=== PATIENT | female | born 1970 | race Caucasian/White ===

== ENCOUNTER 2017-06-26 04:46 | Emergency (ER) | payer MEDICAID, SELFPAY ==
[2017-06-26 04:48] VITALS: BP 122/81; PULSE 88; RESP 20; TEMP 36.7; O2SAT 100; BMI 21.2
--- NOTE | 2017-06-26 04:48 | RAD_ITS ---
STUDY: X-RAY CHEST REASON FOR EXAM: Female, 47 years old. Chest pain TECHNIQUE: Single AP portable view of the chest. COMPARISON: None. FINDINGS: The lungs are clear and expanded. There is no demonstrated pleural abnormality. Normal size heart. Normal mediastinum and manuel. Normal visualized pulmonary arteries. Normal visualized aortic arch and descending thoracic aorta. Normal visualized thoracic spine. Normal visualized ribs, clavicles, and shoulders. There is no demonstrated abnormality of the visualized soft tissue structures of the upper abdomen. RAD/Chest 1 View (Portable) IMPRESSION: Normal x-ray examination of the chest. Electronically Signed: Farhan Acuña MD at 5:12 EDT Tel , Service support ,
--- NOTE | 2017-06-26 04:48 | EKG12_ITS ---
Test Reason : CP Blood Pressure : / mmHG Vent. Rate : 086 BPM Atrial Rate : 086 BPM P-R Int : 146 ms QRS Dur : 084 ms QT Int : 402 ms P-R-T Axes : 075 066 029 degrees QTc Int : 481 ms Normal sinus rhythm Prolonged QT Abnormal ECG Confirmed by BRANDY JOHNSON, LEONID ([id number]), supervising editor news reel [id number] [email or web address] ([id number]) on 06/29/2017 8:38:26 AM Referred By: GALDINO Confirmed By:LEONID NAVA MD
--- NOTE | 2017-06-26 05:04 | ED.DCSUM_ITS ---
- ER Visit Summary Date of Service: 06/26/17 Chief Complaint: Chest pain History of Present Illness: The patient is a 47 F who woke up with chest pain approximate 2 hours ago. She describes a heaviness, pressure in the midsternal area. It radiated to her arm, left jaw and back. Nothing made it better or worse. She did have associated shortness of breath. EMS was called and they gave her aspirin. In route her pain is improving. This same thing happened 5 months ago. She went to [facility] and had a full workup and they determined that the diagnosis was anxiety. Patient denies feeling anxious at this time. She is a smoker but she has no other cardiovascular risk factors. She has no PE or DVT risk factors. Denies any leg swelling. Physical Examination: Vital signs reviewed. HEENT exam unremarkable. Heart is regular rate and rhythm without murmurs. Lungs are clear to auscultation. Abdomen is soft and nontender. Extremities reveal no edema. Peripheral pulses are equal. Skin exam normal. Neurologic exam normal. Test Results: EKG is normal sinus rhythm with a rate of 86. No ST changes. Laboratory studies are normal except for a white blood cell count of 14.8. Chest x-ray unremarkable Emergency Department Course and Treatment: Patient received aspirin by EMS. She was then given morphine. Her labs and chest x-ray and EKG are all normal. I do not feel that this is cardiac in nature. Patient has a ALICE score of 0 and a heart score less than 3. She is low risk. I have very low suspicion for pulmonary embolism. I feel this is likely musculoskeletal. She will be discharged home with an NSAID. She will need to follow-up with her PCP Treatment Plan: [] Disposition: Discharge Impression: Chest pain, noncardiac This note was generated with PowerCard dictation software. It may contain incorrect words, spelling, and punctuation that were not noted in review of the chart prior to signing ED Disposition - Plan for ED Patient: Chief Complaint: Chest Pain Referrals: Care Physician,No Primary [Primary Care Provider] -
[2017-06-26 05:05] LABS: Absolute Lymphocyte Count 2.82 X10^3/ul (0.83-4.51); Absolute Neutrophil Count 10.9 X10^3/uL (2.0-7.7); Basophil# 0.03 X10^3/uL; Basophil% 0.2 % (0-1); Eosinophil# 0.07 X10^3/uL; Eosinophils% 0.5 % (0-5); Hematocrit 44.4 % (37-47); Lymphocyte # 2.82 X10^3/ul (4.0); Mean Corp Hgb Conc 33.8 g/gl (32-36); Mean Corpuscular Hgb 34.2 pg (27.0-32.0); Mean Corpuscular Volume 101.4 fL (81-99); Mean Platelet Vol. 9.9 fl (6.2-12.0); Monocyte% 6.7 % (0-10); Neutrophil # 10.88 X10^3/uL (2.7-7.7); Neutrophil % 73.4 % (47-70); Platelet Count 167 K/mm3 (150-450); RBC Distribution Width SD 51.9 fl (35.1-43.9); Red Blood Count 4.38 M/mm3 (4.2-5.4); White Blood Count 14.8 K/mm3 (4.4-11.0)
[2017-06-26 05:08] LABS: POSITIVE COUNT NO; POSITIVE DIFFERENTIAL NO; POSITIVE MORPHOLOGY NO
[2017-06-26] MEDS: Morphine 4 MG/ML Syringe IV (05:38)
[2017-06-26 05:43] VITALS: BP 116/74; PULSE 88; RESP 16; O2SAT 96
[2017-06-26 05:46] LABS: Anion Gap 10 (5-15); BUN 10 mg/dL (7-18); BUN/Creat Ratio 14.5 RATIO (10-20); Calcium,Total 8.7 mg/dL (8.5-10.1); Chloride 102 mmol/L (98-107); Creatinine, Serum 0.69 mg/dL (0.55-1.02); EST Glomerular Filtration Rate 96 mL/min (>60); Est Glom Filt Rate - Afr Amer 116 mL/min (>60); Glucose 106 mg/dL (74-106); Potassium 3.5 mmol/L (3.5-5.1); Sodium Level 138 mmol/L (136-145)
--- NOTE | 2017-06-26 06:12 | ED.DEP ---
ED Disposition - Plan for ED Patient: Disposition: Home or Assisted Living Chief Complaint: Chest Pain Instructions: ED Chest Pain NonCardiac Prescriptions: Naproxen [Naprosyn] 500 mg PO BID PRN #20 tab Referrals: Care Physician,No Primary [Primary Care Provider] -
[2017-06-26 06:17] VITALS: BP 123/79; PULSE 99; RESP 16; O2SAT 99
== END 2017-06-26 06:27 | disposition home or self-care (01) ==
PROVIDERS: Emergency Provider Emergency Medicine
DX: R07.89 Other chest pain (principal); R06.00 Dyspnea, unspecified; F17.200 Nicotine dependence, unspecified, uncomplicated
CPT/HCPCS: 71045; 80048; 84484; 85025; 93005; 96374; 99285; A4216

== ENCOUNTER 2019-12-24 16:07 | Inpatient (IN) | payer MEDICAID, SELFPAY ==
[2019-12-24] VITALS (11 sets, daily range): BP systolic 110–139; BP diastolic 71–90; PULSE 102–116; RESP 16–26; TEMP 36.2–37; O2SAT 94–99; BMI 21.1; BMI 21.9
[2019-12-24 16:21] LABS: Bedside Glucose 52 mg/dL (70-110)
--- NOTE | 2019-12-24 16:22 | EKG12_ITS ---
Test Reason : WEAKNESS Blood Pressure : / mmHG Vent. Rate : 110 BPM Atrial Rate : 110 BPM P-R Int : 138 ms QRS Dur : 082 ms QT Int : 344 ms P-R-T Axes : 071 057 072 degrees QTc Int : 465 ms Sinus tachycardia Possible Left atrial enlargement Borderline ECG Confirmed by BRANDY JOHNSON, LEONID ([id number]), manager editorial CHARLY JIMÉNEZ ([id number]) on 12/27/2019 10:07:25 AM Referred By: Marely Avitia Confirmed By:LEONID NAVA MD
--- NOTE | 2019-12-24 16:23 | CT_ITS ---
STUDY: CT ABDOMEN AND PELVIS WITHOUT CONTRAST REASON FOR EXAM: Female, 49 years old. Abdominal pain. RADIATION DOSAGE (If Supplied By Facility): CTDIvol = ( 6.04 ) mGy, DLP = ( 314.11 ) mGycm TECHNIQUE: Transaxial images were obtained from the dome of the diaphragm to the symphysis pubis without oral contrast, and without intravenous contrast. Sagittal and coronal images were reconstructed. Individualized dose optimization techniques were used for this CT. COMPARISON: None. FINDINGS: Evaluation of the abdominal viscera is limited in the absence of intravenous contrast. There are small bilateral pleural effusions with overlying atelectasis. There is a 6 mm nodule in the right middle lobe. The visualized portions of the heart and pericardium are within normal limits. There are coronary artery calcifications noted. There are no calcified gallstones present. The gallbladder is distended. The liver is low in density, consistent with fatty infiltration. The spleen is normal in size. The pancreas demonstrates an unremarkable unenhanced appearance. The adrenal glands are within normal limits. There are no renal or ureteral stones. There is no hydronephrosis. There is a DURÁN catheter in the urinary bladder. Normal visualized stomach. There is no bowel obstruction. There is bowel wall thickening in the ascending colon which is consistent with colitis. The appendix is not visualized, but there are no findings to suggest acute appendicitis. The aorta is normal in caliber. Atherosclerotic calcifications are noted in the aorta and its branches. There is a large amount of free fluid. There is no free air, fluid collection or lymphadenopathy. There are no destructive osseous lesions. CT/Abdomen/Pelvis without Cont IMPRESSION: Small bilateral pleural effusions with overlying atelectasis. 6 mm nodule in the right middle lobe. Bowel wall thickening in the ascending colon which is consistent with colitis. Diffuse fatty infiltration of the liver. Large amount of ascites. Normal kidneys. No hydronephrosis. Distended gallbladder. No calcified gallstones. Atherosclerosis and coronary artery disease. Electronically Signed: Bennett Everett, at 17:28 EDT Tel , Service support ,
--- NOTE | 2019-12-24 16:25 | ED.VIS.GEN ---
History of Present Illness Chief Complaint: Hypoglycemia Informant: Patient, Family Onset: Weeks Maximum Severity: Moderate Narrative: The patient presents with generalized weakness cough trouble walking around her home. Per the family she has a diagnosis of pneumonia 3 weeks ago she was seen via virtual visit started on medication believed to be antibiotics she did not improve she continue has cough poor p.o. intake and severe fatigue to where she could not walk around her home today and they called paramedics paramedics found her blood sugar of 50 she has no known history of diabetes, She is an extremely poor historian she is not sure of her past medical history, she believes she may have had an VA in the distant past, may have had A. fib in the past may have hypertension she is not sure of her med list, she is unable to eat or drink she has no known obvious exposures to coronavirus Past Medical History - Allergies and Home Meds Allergies/Adverse Reactions: Allergies No Known Allergies Allergy (Verified 08/23/18 10:19) Primary Care Physician: Zabrina Rdz TANNING WHEEL OPERATOR, TANNING WHEEL OPERATOR-C [Primary Care Provider] - Past Medical History: - - Last history is unclear due to the fact she cannot remember and might be as above Smoking Status: Current every day smoker Review of Systems General: Denies: Chills, Fever, Sweats Eyes: Denies: Visual changes - bilaterally, Diplopia ENT: Denies: Rhinorrhea, Sore throat Cardiovascular: Denies: Chest pain, Palpitations Respiratory: Reports: Dyspnea, Cough. Denies: Dyspnea on exertion Gastrointestinal: Reports: Abdominal pain. Denies: Nausea, Vomiting, Diarrhea, Melena, Hematochezia Genitourinary: Denies: Dysuria, Hematuria, Frequency Musculoskeletal: Denies: Back pain, Extremity Pain Skin: Denies: Rash, Wounds Neurological: Denies: Headache, Weakness, Numbness Physical Exam Vital Signs/Narrative: Vital Signs Temp Pulse Resp BP Pulse Ox 12/24/19 16:10 98.1 F 114 H 18 139/90 H 99 General: Well nourished, Well developed, No Acute Distress Head: Normocephalic, Atraumatic Eyes: Perrl, EOMI ENT: Moist mucous membranes, No rhinorrhea Neck: Supple, Nontender Cardiovascular: Regular rate, Regular rhythm, No murmurs Respiratory: No distress, Chest nontender, Rhonchi, Diminished, Decreased Air Movement Abdomen: Soft, Nontender, Nondistended, Normal bowel sounds Back: Nontender, Normal Inspection Extremities: Nontender, No edema Skin: Normal color, No rash Neurological: Alert, Oriented x3, Cranial nerves II-XII grossly intact, Normal Strength, Normal Sensation, - - He is awake and alert her cranial nerves extremity exam normal moving all 4 extremities NIH 0 she is complains of extreme whole body weakness nothing focal Psychological: Normal affect, Normal Mood Diagnostic/Tx/Re-eval - Medical Decision Making All the above ED screening evaluation to include COVID screen ED Disposition - Plan for ED Patient: Referrals: Zabrina Rdz NP, TANNING WHEEL OPERATOR-C [Primary Care Provider] -
[2019-12-24 16:38] LABS: Mucous, Urine 0 SEEN /hpf (<or=2+); Red Blood Cells-Urine 0 SEEN /hpf (0-5); Squamous Epithelial Cells - UA 0 SEEN /hpf (5-10)
[2019-12-24 16:39] LABS: Color, Urine Amber (Yellow); Glucose, Dipstick Normal (Normal); Ketone-Dipstick 50 mg/dl (Negative); Leukocyte Esterase-Dipstick 25 /ul (Negative); Nitrite-Dipstick Positive (Negative); Occult Blood-Urine 10 /ul (Negative); Protein-Dipstick 15 mg/dl (Negative); Specific Gravity, Urine 1.025 (1.002-1.030); Urine Clarity Sl. Cloudy (Clear); Urine Urobilinogen 12 mg/dl (Normal)
[2019-12-24] MEDS: Aspirin 81 MG TAB.CHEW 324 MG PO (16:43)
[2019-12-24 16:51] LABS: Urine Bilirubin Dipstick 3 mg/dL (Negative)
[2019-12-24 16:53] LABS: Bacteria 4+ /hpf (None Seen); White Blood Cells 0-5 SEEN /hpf (0-5)
--- NOTE | 2019-12-24 16:54 | RAD_ITS ---
STUDY: X-RAY CHEST REASON FOR EXAM: Female, 49 years old. Chest pain TECHNIQUE: Frontal view of the chest COMPARISON: 06/26/2017 FINDINGS: The lungs are clear. There are no pleural effusions. There is no pneumothorax. The heart is normal in size. The visualized osseous structures are within normal limits. RAD/Chest 1 View (Portable) IMPRESSION: No acute thoracic pathology. Electronically Signed: Bennett Everett, at 17:31 EDT Tel , Service support ,
[2019-12-24 16:55] LABS: Absolute Lymphocyte Count 1.72 X10^3/uL (0.83-4.51); Absolute Neutrophil Count 9.5 X10^3/uL (2.0-7.7); Basophil# 0.03 X10^3/uL; Basophil% 0.3 % (0-1); Eosinophil# 0.01 X10^3/uL; Eosinophils% 0.1 % (0-5); Hematocrit 32.7 % (37-47); Hemoglobin 12.1 g/dL (12.0-15.0); Lymphocyte # 1.72 X10^3/ul (4.0); Lymphocyte % 14.4 % (19-41); Mean Corpuscular Hgb 37.3 pg (27.0-32.0); Mean Corpuscular Volume 100.9 fL (81-99); Mean Platelet Vol. 10.9 fl (6.2-12.0); Monocyte# 0.59 X10^3/uL; Monocyte% 4.9 % (0-10); NRBC Flagged by Analyzer 0 % (0-5); Neutrophil # 9.46 X10^3/uL (2.7-7.7); Neutrophil % 79.3 % (47-70); Platelet Count 128 K/mm3 (150-450); RBC Distribution Width CV 14.9 % (11.6-14.6); RBC Distribution Width SD 55.7 fl (35.1-43.9); Red Blood Count 3.24 M/mm3 (4.2-5.4); White Blood Count 11.9 K/mm3 (4.4-11.0)
[2019-12-24 16:58] LABS: International Normalized Ratio 1.1; Prothrombin Time (Protime)PT. 13.4 SECONDS (11.7-14.9)
[2019-12-24 17:16] LABS: Anion Gap 14 (5-15); BUN 2 mg/dL (7-18); BUN/Creat Ratio 7.9 RATIO (10-20); Chloride 83 mmol/L (98-107); Creatinine, Serum 0.25 mg/dL (0.55-1.02); EST Glomerular Filtration Rate 304 mL/min (>60); Est Glom Filt Rate - Afr Amer 367 mL/min (>60); Estimated Creatinine Clearance 232.48 ml/min; Glucose 46 mg/dL (74-106); Sodium Level 118 mmol/L (136-145)
[2019-12-24] MEDS: Dextrose 50%-Water 25 GM/50 ML DISP.SYRIN IV ×2 (17:29→19:30)
[2019-12-24 18:49] LABS: AST(SGOT) 196 U/L (15-37); Alanine Aminotransfer ALT/SGPT 57 U/L (13-56); Albumin, Serum 1.9 g/dL (3.2-5.0); Alkaline Phosphatase 496 U/L (45-117); Anion Gap 13 (5-15); BUN 2 mg/dL (7-18); BUN/Creat Ratio 8.3 RATIO (10-20); Bilirubin, Direct 2.13 mg/dL (0.00-0.30); Calcium,Total 7.6 mg/dL (8.5-10.1); Chloride 85 mmol/L (98-107); Creatinine, Serum 0.24 mg/dL (0.55-1.02); EST Glomerular Filtration Rate 323 mL/min (>60); Est Glom Filt Rate - Afr Amer 390 mL/min (>60); Estimated Creatinine Clearance 242.16 ml/min; Globulin 4.3 g/dL (2.2-4.2); Glucose 94 mg/dL (74-106); Lipase 321 U/L (73-393); Protein, Total 6.2 g/dL (6.4-8.2); Sodium Level 118 mmol/L (136-145)
--- NOTE | 2019-12-24 19:19 | HP.PCM_ITS ---
Problem List (1) Debility Status: Acute (2) Hyponatremia Status: Acute (3) Elevated liver enzymes Status: Acute (4) Coronary artery disease involving [place] heart Status: Chronic Qualifiers: Coronary Disease-Associated Artery/Lesion type: [place] artery Associated angina: without angina Qualified Code(s): I25.10 - Atherosclerotic heart disease of [place] coronary artery without angina pectoris (5) Afib Status: Chronic Qualifiers: Atrial fibrillation type: paroxysmal Qualified Code(s): I48.0 - Paroxysmal atrial fibrillation (6) HLD (hyperlipidemia) Status: Chronic Qualifiers: Hyperlipidemia type: unspecified Qualified Code(s): E78.5 - Hyperlipidemia, unspecified History of Present Illness Date of Admission: 12/24/19 Chief Complaint: Generalised weakness - months Patient is a poor historian, some history was obtained by her cousin who was at the bedside: The patient is a 49 year old F with past medical history of CAD status post stent, paroxysmal atrial fibrillation, hyperlipidemia who has been unwell for months. Patient stated that she has been unwell since January. She does not go to the hospital. She primarily gets her care [facility] from [facility]. She lives with her cousin in [place]. She recently got out of an a busive relationship and has been living with her cousin. Patient has been progressively feeling weak, unable to walk. She has refused to come to the hospital. Her sister called the ambulance. Patient was found by the EMS crew to have pedal edema, abdominal distention mildly jaundiced. Her blood sugar was 48. She admits to not eating well in the last few days. She also has been drinking and has cut down to 1 beer a day. She was given a tablet of glucose on which she sucked on. Vitals in the ED showed temperature of 98.1F, heart rate 114, blood pressure 139/90, respiratory rate 18, SPO2 is 99% on room air. WBC 11.9, Hb 12.1, Plt 128, neutrophilia. INR is 1.1, sodium is 118, potassium 4.0, chloride 85, carbonate 20, BUN is 2, creatinine 0.24, Kos is 94, lactic acid is 2.0, calcium 7.6, bili 1.9, total bilirubin 3.4, direct Kiara 2.1, AST 196, ALT 57, ALP 496. UA is slightly cloudy, nitrite positive, leukocyte esterase 25, bilirubin 3, WBC count 025, 4+ bacteria. Patient denies any dysuria or lower abdominal discomfort or urgency. He admits to no urine output for 3 days. Chavira catheter passed in the ED showed concentrated urine. Past Medical History Past Medical History (Chronic Problems): Chronic Problems (Last Updated 08/23/18 @ 10:23 by Gwen Parson) Coronary artery disease involving [place] heart (Chronic) Afib (Chronic) HLD (hyperlipidemia) (Chronic) Medical History: Medical History (Last Updated 08/23/18 @ 10:23 by Gwen Parson) Coronary artery disease involving [place] heart (Chronic) I25.10 Afib (Chronic) I48.91 HLD (hyperlipidemia) (Chronic) E78.5 Allergies No Known Allergies Allergy (Verified 08/23/18 10:19) Home Medications: Ambulatory Orders Medication Instructions Recorded Cinnamon Bark [Cinnamon] 500 mg PO DAILY 06/26/17 Naproxen [Naprosyn] 500 mg PO BID PRN #20 tab 06/26/17 aspirin 81 mg tablet,delayed 81 mg PO DAILY 08/23/18 release atorvastatin 40 mg tablet 40 mg PO QHS 08/23/18 cholecalciferol (vitamin D3) 25 1,000 unit PO DAILY 08/23/18 mcg (1,000 unit) capsule lisinopril 5 mg tablet 5 mg PO DAILY 08/23/18 nitroglycerin 0.4 mg sublingual 0.4 mg SUBLINGUAL Q5-15M PRN 08/23/18 tablet ticagrelor 90 mg tablet 90 mg PO BID 08/23/18 Surgical History: Surgical History (Last Updated 08/23/18 @ 10:25 by Gwen Parson) H/O dilation and curettage Z98.890 H/O: hysterectomy Z90.710 History of left heart catheterization Z98.890 10/20/2017 Previous section Z98.891 Surgical History: hysterectomy, - - Status post cardiac catheterization, section, history of D&C Psychiatric History: No pertinent psych hx MICROELECTRONICS TECHNICIAN History: No pertinent MICROELECTRONICS TECHNICIAN history Lives: With Family Smoking Status: Current every day smoker Tobacco Use: Cigarettes Alcohol: Heavy Drugs: None - *Family History Maternal Family History: Family History (Last Updated 08/23/18 @ 10:26 by Gwen Parson) Father CAD (coronary artery disease) Mother CAD (coronary artery disease) Myocardial infarction Sister CAD (coronary artery disease) History Items: Heart Disease, Hypertension Paternal Family History: Family History (Last Updated 08/23/18 @ 10:26 by Gwen Parson) Father CAD (coronary artery disease) Mother CAD (coronary artery disease) Myocardial infarction Sister CAD (coronary artery disease) History Items: Heart Disease Review of Systems Constitutional: Reports: Anorexia, Chills, Malaise, Weakness, Fatigue. Denies: Fever, Night Sweats, Weight Change Eyes: Denies: Blurred vision, Cataracts, Conjunctivae Inflammation, Pain, Vision Change HEENT: Denies: Difficulty Hearing, Difficulty Swallowing, Head Aches, Hearing Changes, Sinus Congestion, Sinus Drainage, Sore Throat Cardiovascular: Denies: Chest Pain, Claudication, Orthopnea, Palpitations, Paroxysmal Noc. Dyspnea Respiratory: Reports: Cough, Shortness of Breath, Shortness of breath at rest, Shortness of breath upon exertion. Denies: Hemoptysis, Sputum production Gastrointestinal: Denies: Abdominal Pain, Hematemesis, Hematochezia, Nausea, Vomiting Genitourinary: Reports: - - Poor urine output. Denies: Dysuria, Frequency, Incontinence Musculoskeletal: Denies: Joint Pain, Joint stiffness, Joint swelling, Joint Tenderness Skin: Denies: Rash, Wounds Neurological: Denies: Numbness, Tingling, Focal weakness Psychiatric: Denies: Anxiety, Depression, Homicidal Ideations, Suicidal Ideations Hematologic/ Lymphatic: Denies: Easy Bruising, Easy Bleeding VTE Information - Inpt Only VTE Present on Admission: No VTE Pharm Prophylaxis ordered?: Yes Patient Problems: Active and Suspected Problems (Last Updated 08/23/18 @ 10:23 by Gwen Parson) Debility (Acute) Hyponatremia (Acute) Elevated liver enzymes (Acute) - Physical Exam Vitals/I&O's: Vital Signs Temp Pulse Resp BP Pulse Ox 97.8 F 102 H 16 121/83 H 99 12/24/19 18:32 12/24/19 18:32 12/24/19 18:32 12/24/19 18:32 12/24/19 18:32 Oxygen Delivery Method Room Air Weight: 55.9 kg Body Mass Index (BMI) 21.1 Finger Stick Blood Glucose 119 Intake and Output for Last 24 Hours 12/22/19 12/23/19 12/24/19 23:59 23:59 23:59 Intake Total 500 / 500 Balance 500 / 500 General: Alert, Oriented x3, Cooperative, - - Cachectic, chronically unwell, appears slightly lethargic, unkempt HEENT: Atraumatic, PERRLA, EOMI, Normocephalic Oral: Dry Mucosa Neck: Supple Lungs: Diminished Cardiovascular: Regular rate, Regular Rhythm, Normal S1 - At the lung bases, Normal S2, No murmurs, Tachycardic Abdomen: Bowel Sounds Present, Soft, Non Tender, Distended Extremities: Edema - Bilateral pedal edema +2 Skin: - - Scattered petechiae, chronic flaking of the skin to lower extremities Musculoskeletal: No Tenderness to Palpation of Joints or Extremities Neurological: Cranial nerves II-XII grossly intact, Neuro grossly intact Psych/Mental Status: Normal Affect, Appropriate Laboratory Results 12/24/19 16:15: WBC 11.9 H, RBC 3.24 L, Hgb 12.1, Hct 32.7 L, MCV 100.9 H, MCH 37.3 H, MCHC 37.0 H, RDW Std Deviation 55.7 H, RDW Coeff of Vickie 14.9 H, Plt Count 128 L, MPV 10.9, Immature Gran % (Auto) 1.000 H, Neut % (Auto) 79.3 H, Lymph % (Auto) 14.4 L, [place] % (Auto) 4.9, Eos % (Auto) 0.1, Baso % (Auto) 0.3, Absolute Neuts (auto) 9.5 H, Absolute Lymphs (auto) 1.72, Nucleated RBC % 0 12/24/19 16:15: PT 13.4, INR 1.1 12/24/19 16:15: Sodium 118 L*, Potassium 4.0, Chloride 83 L, Carbon Dioxide 21.0 , Anion Gap 14, BUN 2 L, Creatinine 0.25 L, Estim Creat Clear Calc 232.48, Est GFR (MDRD) Af Amer 367, Est GFR (MDRD) Non-Af 304, BUN/Creatinine Ratio 7.9 L, Glucose 46 L, Calcium 8.0 L, Troponin I < 0.015 12/24/19 16:15: Lactic Acid 2.0 12/24/19 16:15: B-Natriuretic Peptide Pending 12/24/19 16:17: POC Glucose 52 L 12/24/19 16:25: Urine Color Elsa, Urine Clarity Sl. Cloudy, Urine pH 6.0, Ur Specific Show Low 1.025, Urine Protein 15 H, Urine Glucose (UA) Normal, Urine Ketones 50 H, Urine Occult Blood 10 H, Urine Nitrite Positive H, Urine Bilirubin 3 H, Urine Urobilinogen 12 H, Ur Leukocyte Esterase 25 H, Urine RBC 0 SEEN, Urine WBC 0-5 SEEN, Ur Squamous Epith Cells 0 SEEN, Urine Bacteria 4+, Urine Mucus 0 SEEN 12/24/19 16:45: COVID-19 (NENA) Pending 12/24/19 18:02: Sodium 118 L*, Potassium 4.0, Chloride 85 L, Carbon Dioxide 20.0 L, Anion Gap 13, BUN 2 L, Creatinine 0.24 L, Estim Creat Clear Calc 242.16, Est GFR (MDRD) Af Amer 390, Est GFR (MDRD) Non-Af 323, BUN/Creatinine Ratio 8.3 L, Glucose 94, Calcium 7.6 L, Total Bilirubin 3.40 H, Direct Bilirubin 2.13 H, AST 196 H, ALT 57 H, Alkaline Phosphatase 496 H, Total Protein 6.2 L, Albumin 1.9 L, Globulin 4.3 H, Lipase 321 Current Medications Sodium Chloride () 1,000 mls @ 0 mls/hr IV .Q0M [facility] Assessment/Plan All Active Problems (Last Updated 08/23/18 @ 10:23 by Gwen Parson) Debility (Acute) Hyponatremia (Acute) Elevated liver enzymes (Acute) 1. Acute severe hyponatremia, likely related to SIADH versus beer potomania vs hypervolemic hyponatremia Patient with history of alcohol use disorder, very poor p.o. intake Admitted with sodium of 118, appears fluid overloaded. BNpep is pending Will give a trial of Lasix 40 mg IV twice daily, fluid restriction, TSH, serum osmolarity urine sodium, urine creatinine, urine osmolality Repeat BMP in 4 hours, nephrology consult 2. Hypoglycemia, recurrent secondary to poor p.o. intake Patient admitting blood sugar was 52. Given an amp of D50 and continued on D10/NS at 125mls/hr We will continue same, monitor glucose checks every 6h Discontinue D10 if patient's blood glucose improved. 3. Elevated liver function, elevated total bilirubin, direct bilirubin as well as AST, ALT and ALP No previous values to compare Acute related to alcoholic liver disease; history of chronic alcohol use CT scan of the abdomen and pelvis shows fatty liver We will get ultrasound of the abdomen, acute hepatitis panel, acetaminophen, salicylate levels Repeat blood work in a.m. 3. Ascites, probable new onset, patient is not aware of any history of ascites Likely related to severe hypoalbuminemia with albumin of 1.9 vs chronic liver disease versus malignancy Will request for ultrasound-guided paracentesis with diagnostic labs, serum LDH in a.m. 4. Ascending colon thickening concerning for possible colitis. Patient without diarrhea. Will check CEA Will start patient on empiric antibiotics?Cipro and Flagyl Patient may need general surgery evaluation for possible underlying malignancy 5. Malnutrition, severe protein calorie, secondary to poor p.o. intake rn pacu consulted 6. Thrombocytopenia, with scattered petechia, unclear etiology Would hold off on using heparin products, blood work in a.m. 7. Asymptomatic bacteriuria, would monitor 8. Chronic alcohol use disorder, will monitor for acute alcohol withdrawal Would hold off on starting on Ativan taper 9. CAD status post stent, continue on aspirin, Brilinta, statin 10. CODE STATUS?full code I explained in details the various types of CODE STATUS-full code, DNR CCA, DNR CC. Patient stated very clearly that she wants everything done to keep her alive. She chose full code. Time spent discussing CODE STATUS 17 minutes Inpatient E&M: 72538 Init Hosp L3 Procedures: 22523 Advncd Care Plan 30 Min
[2019-12-24 20:41] LABS: Bedside Glucose 47 mg/dL (70-110)
[2019-12-24 20:45] LABS: Reflex Lactate? Y
--- NOTE | 2019-12-24 20:45 | US_ITS ---
PROCEDURE: ULTRASOUND GUIDED PARACENTESIS CLINICAL HISTORY: Female, 49 years old. ASCITES CONSENT: The risks, benefits and alternatives to the procedure were explained to the patient, and the patient agreed to the procedure and signed the consent. SEDATION: Local Anesthesia STERILE BARRIER TECHNIQUE: The following sterile barrier precautions were used during the procedure: hand hygiene; use of 2% chlorhexidine aseptic; use of a cap, mask, sterile gown, sterile gloves, sterile full body drape, and a large sterile sheet. PROCEDURE/TECHNIQUE: The risks, benefits, and alternatives to the procedure were explained to patient, and the patient agreed to the procedure and signed a consent form for the procedure. TECHNIQUE: Under the ultrasound guidance using sterile technique and after infiltration of the skin and subcutaneous soft tissues with 10 mL of lidocaine 1% a 5 [place] drainage catheter is introduced in the lower part of the abdomen. 2220 mL of fluid were removed sample sent to lab for evaluation. The patient tolerated the procedure there was no immediate complication. FINDINGS: FLUID PRE-PROCEDURE There is posterior enhancement. The findings appear anechoic. There is no loculation. FLUID POST-PROCEDURE Amount of fluid drained: 2220 ml. US/Paracentesis with US IMPRESSION: Successful ultrasound-guided paracentesis. Electronically Signed: Farhan Acuña, at 13:28 EDT Tel , Service support ,
--- NOTE | 2019-12-24 20:45 | ECHOCS_ITS ---
Reason For Study: Dyspnea/SOB Procedure This was a 2D Doppler, Color Flow transthoracic echocardiogram. Technically difficult study due to patient having an elevated HR and said she was not willing to lay on her left side. Exam performed portable in patient room. Left Ventricle Normal LV size. Left ventricular systolic function is normal. The estimated ejection fraction is 70 %. Stage 1 diastolic dysfunction. No regional wall motion abnormalities noted. Right Ventricle Normal RV size. Normal systolic function. Atria Normal left atrium. Normal right atrium. Mitral Valve Normal mitral valve. Tricuspid Valve The tricuspid valve is not well visualized. Aortic Valve The aortic valve is not well visualized. Pulmonic Valve The pulmonic valve is not well visualized. Great Vessels Normal aortic root. The pulmonary artery is normal size. Normal inferior vena cava. Pericardium/Pleural No pericardial effusion. Medication Diluted definity 3ml given slow IV push to enhance endocardial definition. MMode/2D Measurements & Calculations LVIDd: 3.7 cm IVSd: 0.72 cm LVIDs: 2.9 cm LVPWd: 0.79 cm FS: 22.8 % Time Measurements MV dec time: 0.24 sec Doppler Measurements & Calculations MV E max torey: 53.5 cm/sec Lat Peak E' Torey: 11.1 cm/sec Med Peak E' Torey: 7.2 cm/sec MV A max torey: 102.8 cm/sec E/E' lat: 4.8 E/E' med: 7.4 MV E/A: 0.52 Ao V2 max: 142.3 cm/sec LV V1 max: 137.7 cm/sec PA V2 max: 154.1 cm/sec Ao max P.1 mmHg LV V1 max P.6 mmHg Interpretation Summary Normal LV size. Left ventricular systolic function is normal. The estimated ejection fraction is 70 %. Stage 1 diastolic dysfunction. Contrast injection was performed. Ordering Physician: Marely Avitia Referring Physician: Marely Avitia Performed By: Mejia Hagan RCS
--- NOTE | 2019-12-24 20:45 | US_ITS ---
STUDY: ABDOMINAL ULTRASOUND - RIGHT UPPER QUADRANT REASON FOR VISIT: Female, 49 years old ELEVATED LIVER ENZYMES -- F/U CT DONE YESTERDAY -- ASCITES SURVEY TECHNIQUE: Ultrasound evaluation of the right upper quadrant was performed with real-time and static levi-scale imaging. TECHNICAL QUALITY: Adequate. COMPARISON: None. FINDINGS: Liver: The liver measures 16.8 cm. There is increased echogenicity consistent with fatty infiltration. The bile ducts are within normal limits. There is hepatic color flow. The direction of portal flow is hepatopetal. There is no demonstrated mass lesion. There is small amount of free fluid in the right upper quadrant consistent with ascites. Gallbladder: Normal distended gallbladder. The gallbladder wall measures 3.5 mm. There is a negative sonographic Headley''s sign. There is no pericholecystic fluid. There is biliary sludge dependent within the gallbladder. Common Bile Duct (C.B.D.): The common bile duct measures 4 mm. Pancreas: Normal size of the head, body and tail of the pancreas. There is normal echogenicity of the pancreas. There is no demonstrated pancreatic mass or cyst. Right Kidney: Normal size of the right kidney. The right kidney measures 11.8 x 4.6 x 4.1 cm. Normal renal cortex. The right cortex measures 1.7 cm. There is no demonstrated renal mass or cyst. There is mild hydronephrosis of the right kidney. US/Liver IMPRESSION: Fatty infiltration of the liver. There is biliary sludge dependent within the gallbladder. Small ascites. Electronically Signed: Farhan Acuña, at 9:08 EDT Tel , Service support ,
[2019-12-24 21:37] LABS: Urine Sodium < 5 mmol/L (Not Establ.)
[2019-12-24 21:51] LABS: Amphetamine Urine VISTA NEGATIVE (<1000 ng/mL); Barbiturate Urine VISTA NEGATIVE (< 200 ng/mL); Benzodiazepine Urine VISTA NEGATIVE (< 200 ng/mL); Cocaine Urine VISTA NEGATIVE (< 300 ng/mL); Ecstacy Urine VISTA NEGATIVE (< 500 ng/mL); Methadone Urine VISTA NEGATIVE (< 300 ng/mL); PCP Urine VISTA NEGATIVE (< 25 ng/mL); THC Urine VISTA NEGATIVE (< 50 ng/mL); Vista UDS pH Range 6
[2019-12-24 22:04] LABS: Phosphorus 1.8 mg/dL (2.5-4.9); Thyroid Stim Hormone (TSH) 6.56 uIU/mL (0.358-3.74)
[2019-12-24] MEDS: Ipratropium/Albuterol Sulfate 3 ML AMPUL.NEB INHALATION (22:05)
[2019-12-24 22:06] LABS: Osmolality, Urine 509 mOsm/KG
[2019-12-24 22:07] LABS: Osmolality, Serum 276 mOsm/KG (275-295)
[2019-12-24 22:11] LABS: Lactic Acid 1.9 mmol/L (0.4-1.9)
[2019-12-24 22:12] LABS: Acetaminophen (Tylenol) Level < 2.0 ug/mL (10.0-30.0); Salicylate < 1.7 mg/dL (2.8-20.0)
[2019-12-24] MEDS: 0.9% Saline Lock 10 ML Syringe IV (23:09)
[2019-12-24] MEDS: metroNIDAZOLE 500 MG/100 ML BAG 100 MG IV (23:12)
[2019-12-25] VITALS (17 sets, daily range): BP systolic 103–123; BP diastolic 65–73; PULSE 103–126; RESP 12–28; TEMP 36.8–37.3; O2SAT 94–100; BMI 20.2
--- NOTE | 2019-12-25 | IMM_PTH ---
PATIENT: ROSEANNA CARDOZO LOC: PCU U#:[id number] AGE/SX: 49/F ROOM: [facility] RE12/24/[address]: Dr. Claire Anthony MD : 1970 BED: 1 DIS: 12/28/2019 SPEC #: [id number] RECD: 12/26/19 13:53 STATUS: SOUT REQ #: [id number] YESI: 12/25/19 00:[address]: Claire Anthony DEPT: IMMUNOHISTOCHEMISTRY RECD BY: Elza Barlow ENTERED: 12/26/19 13:54 SP TYPE: IMMUNO OTHR DR: MD Dr. Kimberly Pope MD Lindsey Lorson, BUSINESS EDUCATION TEACHER-C Tissues: PARACENTESIS FLUID Procedures: Calretinin (initial) CK5-6 (add) CK7 (add) MACRO (add) TTF1 (add) P40 (add) PHYSICIAN & [address] [address] SPECIMEN INFORMATION: Tissue Source: Paracentesis fluid Clinical Info: Ascites Specimen Number: [id number] CPT code: 48327, 32019 x5 METHODOLOGY: Deparaffinized sections of prefer/formalin-fixed tissue or PAP/DQ stained slides are incubated with monoclonal/polyclonal antibodies/oligonucleotide probes. Localization is made via biotin free immunoperoxidase method. Appropriate controls are performed and reacted as expected. Results on target cell population are indicated in the following table: RESULTS: ANTIBODY / CLONE RESULT CALRET (polyclonal) positive TTF-1 (8G7G3/1) negative Macro (HAM-56) positive CK5-6 (D5 & 1684) positive P40 (BC28) negative CK7 (OV-TL12/30) positive These tests were developed and their performance characteristics determined by [facility]. They may not have been cleared or approved by the U.[place]. Food and Drug Administration. The FDA has determined that such clearance or approval is not necessary. The above immunohistochemical/dualISH markers are ordered and reviewed by the Pathologist. INTERPRETATION: Paracentesis fluid: No evidence of malignancy. AM:dayday 12/27/19
--- NOTE | 2019-12-25 | FLU_PTH ---
PATIENT: ROSEANNA CARDOZO LOC: [facility] U#:[id number] AGE/SX: 49/F ROOM: [facility] RE12/24/[address]: Dr. Claire Anthony MD : 1970 BED: 1 DIS: 12/28/2019 SPEC #: [id number] RECD: 12/25/19 13:34 STATUS: ROCIO REQ #: [id number] YESI: 12/25/19 00:[address]: Claire Anthony DEPT: CYTOLOGY RECD BY: Jose Valentin ENTERED: 12/25/19 13:35 SP TYPE: Fluid OTHR DR: MD Dr. Kimberly Pope MD No Primary Care Phys Tissues: PARACENTESIS FLUID Procedures: Special Stain Group II Surgery Specimen Level IV Cytospin Fluid HEADER OPERATION: Ultrasound-guided left paracentesis PRE-OP DIAGNOSIS: Ascites TISSUE SUBMITTED: Paracentesis fluid for cytology DIAGNOSIS CYTOLOGY Paracentesis fluid for cytology (cytospin and cell block): Negative for malignant cells. See comment. AM:dayday 12/26/19 COMMENT Immunohistochemistry ([id number]) supports the above diagnosis. CYTOLOGY STUDY Slides are reviewed. CYTOLOGY GROSS Received is 110 ml of hazy yellow fluid labeled with the patient's name and and designated per the requisition as paracentesis. Submitted for cytology preparation including cell block. / dayday 12/25/19 TC:4 CPT: 00976
[2019-12-25] MEDS: Ciprofloxacin 400 MG/200 ML BAG 200 MG IV ×3 (00:32→22:41)
[2019-12-25 00:55] LABS: Bedside Glucose 104 mg/dL (70-110)
[2019-12-25 03:40] LABS: Absolute Lymphocyte Count 0.86 X10^3/uL (0.83-4.51); Absolute Neutrophil Count 8.6 X10^3/uL (2.0-7.7); Basophil# 0.01 X10^3/uL; Basophil% 0.1 % (0-1); Eosinophil# 0.01 X10^3/uL; Eosinophils% 0.1 % (0-5); Hematocrit 26.9 % (37-47); Hemoglobin 9.9 g/dL (12.0-15.0); Lymphocyte # 0.86 X10^3/ul (4.0); Lymphocyte % 8.6 % (19-41); Mean Corp Hgb Conc 36.8 g/dL (32-36); Mean Corpuscular Hgb 37.6 pg (27.0-32.0); Mean Corpuscular Volume 102.3 fL (81-99); Mean Platelet Vol. 10.6 fl (6.2-12.0); Monocyte# 0.47 X10^3/uL; Monocyte% 4.7 % (0-10); NRBC Flagged by Analyzer 0 % (0-5); Neutrophil # 8.59 X10^3/uL (2.7-7.7); Neutrophil % 85.5 % (47-70); Platelet Count 103 K/mm3 (150-450); RBC Distribution Width CV 15.1 % (11.6-14.6); RBC Distribution Width SD 56.2 fl (35.1-43.9); Red Blood Count 2.63 M/mm3 (4.2-5.4)
[2019-12-25 04:29] LABS: ALB/GLOB Ratio 0.5 RATIO (0.9-2.4); AST(SGOT) 166 U/L (15-37); Alanine Aminotransfer ALT/SGPT 50 U/L (13-56); Albumin, Serum 1.8 g/dL (3.2-5.0); Alkaline Phosphatase 406 U/L (45-117); Anion Gap 11 (5-15); BUN 2 mg/dL (7-18); BUN/Creat Ratio 8.2 RATIO (10-20); Calcium,Total 7.1 mg/dL (8.5-10.1); Chloride 85 mmol/L (98-107); Creatinine, Serum 0.24 mg/dL (0.55-1.02); EST Glomerular Filtration Rate 316 mL/min (>60); Est Glom Filt Rate - Afr Amer 383 mL/min (>60); Estimated Creatinine Clearance 242.16 ml/min; Globulin 3.4 g/dL (2.2-4.2); Glucose 97 mg/dL (74-106); LDH 377 U/L (84-246); Magnesium 1.6 mg/dL (1.6-2.6); Phosphorus 2.4 mg/dL (2.5-4.9); Potassium 3.2 mmol/L (3.5-5.1); Protein, Total 5.2 g/dL (6.4-8.2); Sodium Level 117 mmol/L (136-145)
[2019-12-25] MEDS: metroNIDAZOLE 500 MG/100 ML BAG 100 MG IV ×3 (05:24→21:36)
--- NOTE | 2019-12-25 05:59 | PCM.PN.BLA ---
Progress Note Patient with decreasing hyponatremia. Patient was on D10 water in normal saline going at 75 mL's per hour because of concomitant hypoglycemia. Stop D10 normal saline. Continue sodium phosphate for hypophosphatemia. Change Accu-Cheks for every 6 hours to every 4 hours. Patient is scheduled to have ultrasound of liver; and then ultrasound-guided paracentesis. Patient is n.p.o. for above tests. Of note he was hypoglycemic on presentation before being kept n.p.o.. Nursing to check with radiology when patient will have ultrasound of his liver so that we can appropriately feed patient. STROKE Vital Signs/Narrative: Vital Signs Temp Pulse Resp BP Pulse Ox 12/25/19 05:08 98.5 F 126 H 28 H 119/71 97 12/25/19 03:00 119 H
[2019-12-25 06:21] LABS: Bedside Glucose 102 mg/dL (70-110)
[2019-12-25] MEDS: Furosemide 40 MG/4 ML Vial IV ×2 (06:52→21:38)
[2019-12-25] MEDS: 0.9% Saline Lock 10 ML Syringe IV ×2 (06:52→21:38)
[2019-12-25 08:15] LABS: T4 Free Direct 0.77 ng/dL (0.76-1.46)
[2019-12-25] MEDS: Aspirin E.C. 81 MG Tablet PO (09:37)
[2019-12-25] MEDS: Folic Acid 1 MG Tablet PO (09:38)
[2019-12-25] MEDS: Thiamine Hydrochloride 100 MG Tablet PO (09:38)
[2019-12-25] MEDS: Metoprolol(XL)Succ 25 MG Tablet PO (09:39)
--- NOTE | 2019-12-25 09:44 | NURSING ---
pt refused nicotine patch after patch was already removed from packaging. Wasted patch in black bin in med room.
[2019-12-25 09:58] LABS: Osmolality, Serum 248 mOsm/KG (275-295)
[2019-12-25 10:04] LABS: Urine Sodium 45 mmol/L (Not Establ.)
[2019-12-25 10:10] LABS: Osmolality, Urine 280 mOsm/KG
[2019-12-25] MEDS: Ipratropium/Albuterol Sulfate 3 ML AMPUL.NEB INHALATION ×2 (11:14→18:39)
--- NOTE | 2019-12-25 11:42 | PCM.NTREPORT ---
Nutrition Therapy Report - History Nutrition Services has been consulted to:: Manage nutrient details of diet order Current diet / nutrition support order:: Sodium-Restricted/1500 ml Fluid Restriction - Anthropometric Measurements Height:: 5 ft 4 in Weight:: 53.4 kg Body Mass Index (BMI):: 20.2 - Relevant Labs Relevant Labs:: WBC 11.9 K/mm3 (4.4-11.0) H 12/24/19 16:15 RBC 2.63 M/mm3 (4.2-5.4) L 12/25/19 03:23 Hgb 9.9 g/dL (12.0-15.0) L 12/25/19 03:23 Hct 26.9 % (37-47) L 12/25/19 03:23 MCV 102.3 fL (81-99) H 12/25/19 03:23 MCH 37.6 pg (27.0-32.0) H 12/25/19 03:23 MCHC 36.8 g/dL (32-36) H 12/25/19 03:23 RDW Std Deviation 56.2 fl (35.1-43.9) H 12/25/19 03:23 RDW Coeff of Vickie 15.1 % (11.6-14.6) H 12/25/19 03:23 Plt Count 103 K/mm3 (150-450) L 12/25/19 03:23 Immature Gran % (Auto) 1.000 % (0.0-0.9) H 12/25/19 03:23 Neut % (Auto) 85.5 % (47-70) H 12/25/19 03:23 Lymph % (Auto) 8.6 % (19-41) L 12/25/19 03:23 Absolute Neuts (auto) 8.6 X10^3/uL (2.0-7.7) H 12/25/19 03:23 Sodium 117 mmol/L (136-145) L* 12/25/19 03:23 Potassium 3.2 mmol/L (3.5-5.1) L 12/25/19 03:23 Chloride 85 mmol/L (98-107) L 12/25/19 03:23 Carbon Dioxide 20.0 mmol/L (21.0-32.0) L 12/24/19 18:02 BUN 2 mg/dL (7-18) L 12/25/19 03:23 Creatinine 0.24 mg/dL (0.55-1.02) L 12/25/19 03:23 BUN/Creatinine Ratio 8.2 RATIO (10-20) L 12/25/19 03:23 Glucose 46 mg/dL (74-106) L 12/24/19 16:15 Serum Osmolality 248 mOsm/KG (275-295) L 12/25/19 08:48 Calcium 7.1 mg/dL (8.5-10.1) L 12/25/19 03:23 Phosphorus 2.4 mg/dL (2.5-4.9) L 12/25/19 03:23 Total Bilirubin 2.90 mg/dL (0.20-1.00) H 12/25/19 03:23 Direct Bilirubin 2.13 mg/dL (0.00-0.30) H 12/24/19 18:02 AST 166 U/L (15-37) H 12/25/19 03:23 ALT 57 U/L (13-56) H 12/24/19 18:02 Alkaline Phosphatase 406 U/L (45-117) H 12/25/19 03:23 Lactate Dehydrogenase 377 U/L (84-246) H 12/25/19 03:23 Total Protein 5.2 g/dL (6.4-8.2) L 12/25/19 03:23 Albumin 1.8 g/dL (3.2-5.0) L 12/25/19 03:23 Globulin 4.3 g/dL (2.2-4.2) H 12/24/19 18:02 Albumin/Globulin Ratio 0.5 RATIO (0.9-2.4) L 12/25/19 03:23 TSH 6.56 uIU/mL (0.358-3.74) H 12/24/19 21:25 - Assessment Food / Nutrition-Related History:: Pt with BLLE 1+ pitting edema and ascites. Pt reports decreased nik/intake over the past 1 month but, difficult to calculate wt loss due to ascites and BLLE 1+ pitting edema. Suspect pt with wt loss due to obvious muscle/fat depletion in face, temples, clavicle and upper body but, fluid wt is clearly masking wt loss. Pt very uncomfortable and reports my weight changes when asked about UBW. Reports UBW~100 lbs. Despite unclear wt hx per pt report, pt with signs/symptoms of pro/tree malnutrition per ongoing poor intake and +NFPA indicated moderate to severe pro/fat wasting. Plans for paracentesis and liver US today. - Nutrition Diagnosis Problem / Etiology / Signs & Symptoms (PES):: Severe pro/tree malnutrition of acute disease related to ongoing suboptimal oral intake; increased nutrient needs and suspected wt loss likely masked by fluid wt as evidenced by poor PO x past 1 month; +NFPA with signs of muscle/fat wasting of face, temples, clavicle and upper body. Evidence of Malnutrition Exists:: Yes Severe PCM:: Acute Illness - Nutrition Intervention Nutrition Prescription:: Estimated Nutrition Needs~8112-4096 kcal & ~65-75 gm protein for repletion. - Food / Nutrient Delivery Interventions Summary of nutrition intervention:: Will adjust ONS w/ meals to include magic cup BID and ensure cleat 120 ml TID w/ meals in addition to 120 ml ensure enlive 4 x daily w/ medpass as ordered. Nutrition support ordered as / adjusted to:: Not at this time but, may need to consider TF support for pro/tree repletion if PO remains poor and wt declines. Nutrition education provided?: Yes - MNT Monitoring Further MNT monitoring and evaluation required?: Yes MNT Follow-up in:: 3-5 days
[2019-12-25 11:51] LABS: Bedside Glucose 183 mg/dL (70-110)
--- NOTE | 2019-12-25 12:47 | PCM.CONS.R ---
Problem List (1) Hyponatremia Status: Acute Consultation - Renal 12/25/19 PCP/ Referring MD: Requesting physician: [] Primary care physician: No Primary Care Phys Reason for Consultation:: hyponatremia - History of Present Illness History of Present Illness: The patient is a 49 year old F Who presented to the hospital with complaints of generalized weakness, abdominal distention. Apparently she was living with her cousin for the last few weeks. History of heavy alcohol use. Presented with weakness, abdominal distention, lower extremity edema. Found to have severe hyponatremia with sodium values at 117. Has new diagnosis of arthritis, fatty liver likely all alcohol related. Currently denies any complaints. A Chavira catheter was placed in the ER and she is making good amount of urine. She has been placed on IV Lasix for hypervolemic hyponatremia. Currently does not offer any complaints. - Allergies Allergies: Allergies No Known Allergies Allergy (Verified 08/23/18 10:19) - Current Medications Current Medications: Current Medications Albuterol/Ipratropium (Duoneb) 3 ml INHALATION Q4HWA.RT [facility] Last Admin: 12/25/19 11:14 Dose: 3 ml Documented by: Aspirin (Ecotrin) 81 mg PO DAILYCM [facility] Last Admin: 12/25/19 09:37 Dose: 81 mg Documented by: Bisacodyl (Dulcolax) 10 mg RECTAL DAILY PRN PRN Reason: Constipation Dextrose (D50w Syringe) 0 gm IV X1 PRN; Protocol PRN Reason: Hypoglycemia Dicyclomine HCl (Bentyl) 20 mg PO Q6H PRN PRN PRN Reason: abdominal discomfort Folic Acid (Folic Acid) 1 mg PO DAILY@0800 [facility] Last Admin: 12/25/19 09:38 Dose: 1 mg Documented by: Furosemide (Lasix) 40 mg IV BID [facility] Last Admin: 12/25/19 06:52 Dose: 40 mg Documented by: Gabapentin (Neurontin) 300 mg PO Q8H PRN PRN PRN Reason: moderate to severe anxiety Glucagon () 1 mg IM .X1 PRN PRN Reason: Hypoglycemia Hydroxyzine Pamoate (Vistaril Pamoate Capsule) 50 mg PO Q4H PRN PRN PRN Reason: mild anxiety Sodium Chloride () 1,000 mls @ 0 mls/hr IV .Q0M [facility] Ciprofloxacin (Cipro) 400 mg in 200 mls @ 200 mls/hr IV Q12 [facility] Last Infusion: 12/25/19 11:17 Dose: Infused Documented by: Metronidazole (Flagyl) 500 mg in 100 mls @ 100 mls/hr IV Q8 [facility] Last Infusion: 12/25/19 06:24 Dose: Infused Documented by: Sodium Chloride () 250 mls @ 15 mls/hr IV .[id number] PRN PRN Reason: Saline Flush Last Infusion: 12/25/19 06:24 Dose: 15 mls/hr Documented by: Sodium Chloride () 250 mls @ 15 mls/hr IV .[id number] PRN PRN Reason: Additional IVPB Infusion Loperamide HCl (Imodium) 2 mg PO Q4H PRN PRN PRN Reason: LOOSE STOOLS Metoprolol Succinate (Toprol Xl (Beta Tomy)) 25 mg PO DAILY [facility] Last Admin: 12/25/19 09:39 Dose: 25 mg Documented by: Nicotine (Nicoderm Cq (Pbkc)) 21 mg TRANSDERM. DAILY [facility] Last Admin: 12/25/19 09:44 Dose: Not Given Documented by: Nitroglycerin (Nitrostat) 0.4 mg SUBLINGUAL Q5M PRN PRN Reason: CARDIAC/CHEST PAIN Nutritional Formula (Lactose Free) (Ensure Enlive) 120 ml PO 4X/DAY [facility] Last Admin: 12/25/19 09:37 Dose: 120 ml Documented by: Ondansetron HCl (Zofran) 4 mg IV Q8H PRN PRN PRN Reason: NAUSEA/VOMITING Sodium Chloride () 10 - 40 ml IV UD PRN PRN Reason: SALINE FLUSH Last Admin: 12/25/19 06:52 Dose: 10 ml Documented by: Thiamine HCl (Vitamin B1) 100 mg PO DAILYCM [facility] Last Admin: 12/25/19 09:38 Dose: 100 mg Documented by: Trazodone HCl (Desyrel) 100 mg PO QHS PRN PRN Reason: INSOMNIA - Past Medical History Past Medical History (Chronic Problems): Chronic Problems (Last Updated 08/23/18 @ 10:23 by Gwen Parson) Coronary artery disease involving [place] heart (Chronic) Afib (Chronic) HLD (hyperlipidemia) (Chronic) - Past Surgical History Surgical History: hysterectomy, - - Status post cardiac catheterization, section, history of D&C - Social History Smoking Status: Current every day smoker Alcohol: Heavy Drugs: None - Family History Maternal Family History: Family History (Last Updated 08/23/18 @ 10:26 by Gwen Parson) Father CAD (coronary artery disease) Mother CAD (coronary artery disease) Myocardial infarction Sister CAD (coronary artery disease) History Items: Heart Disease, Hypertension Paternal Family History: Family History (Last Updated 08/23/18 @ 10:26 by Gwen Parson) Father CAD (coronary artery disease) Mother CAD (coronary artery disease) Myocardial infarction Sister CAD (coronary artery disease) History Items: Heart Disease Review of Systems Constitutional: Reports: Anorexia, Malaise, Weakness Respiratory: Reports: Shortness of breath at rest Gastrointestinal: Reports: Abdominal Pain Skin: Reports: Jaundice Patient Problems: Active and Suspected Problems (Last Updated 08/23/18 @ 10:23 by Gwen Parson) Debility (Acute) Hyponatremia (Acute) Elevated liver enzymes (Acute) - Physical Exam Vitals/I&O's: Vital Signs Temp Pulse Resp BP Pulse Ox 98.6 F 118 H 20 H 115/71 94 12/25/19 06:45 12/25/19 11:14 12/25/19 11:14 12/25/19 06:45 12/25/19 11:14 Oxygen Delivery Method Room Air Weight: 53.4 kg Body Mass Index (BMI) 20.2 Finger Stick Blood Glucose 47 Intake and Output for Last 24 Hours 12/23/19 12/24/19 12/25/19 23:59 23:59 23:59 Intake Total 750.25 / 750.25 3333 / Output Total 400 / 400 400 / 400 Balance 350.25 / 350.25 1591.3333 / 1591.3333 General: Alert, Oriented x3, Cooperative HEENT: Atraumatic, PERRLA, EOMI, Normocephalic Neck: Supple, No JVD, Negative Carotid Bruits Lungs: Clear to auscultation, Normal air movement Cardiovascular: Regular rate, No murmurs Abdomen: Distended Extremities: Capillary Refill Less than 3 Seconds, Edema Skin: No rashes, No breakdown Musculoskeletal: No Tenderness to Palpation of Joints or Extremities Neurological: Cranial nerves II-XII grossly intact Psych/Mental Status: Normal Affect, Appropriate Microbiology Past 72 Hours 12/24/19 16:25 Urine, Catheterized Urine Culture - Preliminary Presumptive E. coli Laboratory Results 12/24/19 16:15: WBC 11.9 H, RBC 3.24 L, Hgb 12.1, Hct 32.7 L, MCV 100.9 H, MCH 37.3 H, MCHC 37.0 H, RDW Std Deviation 55.7 H, RDW Coeff of Vickie 14.9 H, Plt Count 128 L, MPV 10.9, Immature Gran % (Auto) 1.000 H, Neut % (Auto) 79.3 H, Lymph % (Auto) 14.4 L, Mcduffie % (Auto) 4.9, Eos % (Auto) 0.1, Baso % (Auto) 0.3, Absolute Neuts (auto) 9.5 H, Absolute Lymphs (auto) 1.72, Nucleated RBC % 0 12/24/19 16:15: PT 13.4, INR 1.1 12/24/19 16:15: Sodium 118 L*, Potassium 4.0, Chloride 83 L, Carbon Dioxide 21.0, Anion Gap 14, BUN 2 L, Creatinine 0.25 L, Estim Creat Clear Calc 232.48, Est GFR (MDRD) Af Amer 367, Est GFR (MDRD) Non-Af 304, BUN/Creatinine Ratio 7.9 L, Glucose 46 L, Calcium 8.0 L, Troponin I < 0.015 12/24/19 16:15: Lactic Acid 2.0 12/24/19 16:15: B-Natriuretic Peptide Pending 12/24/19 16:17: POC Glucose 52 L 12/24/19 16:25: Urine Color Elsa, Urine Clarity Sl. Cloudy, Urine pH 6.0, Ur Specific [place] 1.025, Urine Protein 15 H, Urine Glucose (UA) Normal, Urine Ketones 50 H, Urine Occult Blood 10 H, Urine Nitrite Positive H, Urine Bilirubin 3 H, Urine Urobilinogen 12 H, Ur Leukocyte Esterase 25 H, Urine RBC 0 SEEN, Urine WBC 0-5 SEEN, Ur Squamous Epith Cells 0 SEEN, Urine Bacteria 4+, Urine Mucus 0 SEEN 12/24/19 16:25: Urine Opiates Screen NEGATIVE, Urine Methadone Screen NEGATIVE, Ur Barbiturates Screen NEGATIVE, Ur Phencyclidine Scrn NEGATIVE, Ur Amphetamines Screen NEGATIVE, U Methamphetamin-MDMA NEGATIVE, U Benzodiazepines Scrn NEGATIVE, Urine Cocaine Screen NEGATIVE, U Cannabinoids Screen NEGATIVE, Ur Drug Screen Comment 12/24/19 16:25: Urine Osmolality 509 12/24/19 16:25: Urine Creatinine 91.40 12/24/19 16:25: Ur Random Sodium < 5 12/24/19 16:45: COVID-19 ([facility]NA) Negative 12/24/19 18:02: Sodium 118 L*, Potassium 4.0, Chloride 85 L, Carbon Dioxide 20.0 L, Anion Gap 13, BUN 2 L, Creatinine 0.24 L, Estim Creat Clear Calc 242.16, Est GFR (MDRD) Af Amer 390, Est GFR (MDRD) Non-Af 323, BUN/Creatinine Ratio 8.3 L, Glucose 94, Calcium 7.6 L, Total Bilirubin 3.40 H, Direct Bilirubin 2.13 H, AST 196 H, ALT 57 H, Alkaline Phosphatase 496 H, Total Protein 6.2 L, Albumin 1.9 L, Globulin 4.3 H, Lipase 321 12/24/19 19:22: POC Glucose 47 L 12/24/19 21:25: Lactic Acid 1.9 12/24/19 21:25: Phosphorus 1.8 L, Magnesium 2.0, Troponin I 0.016, TSH 6.56 H 12/24/19 21:25: Serum Osmolality 276, Salicylates < 1.7 L, Acetaminophen < 2.0 L 12/24/19 21:25: Carcinoembryonic Ag Pending, Hepatitis A IgM Ab Pending, Hep Bs Antigen Pending, Hep B Core IgM Ab Pending, Hepatitis C Ab (EIA) Pending 12/24/19 23:19: POC Glucose 104 12/25/19 00:20: Troponin I < 0.015 12/25/19 03:23: WBC 10.0, RBC 2.63 L, Hgb 9.9 L, Hct 26.9 L, MCV 102.3 H, MCH 37.6 H, MCHC 36.8 H, RDW Std Deviation 56.2 H, RDW Coeff of Vickie 15.1 H, Plt Count 103 L, MPV 10.6, Immature Gran % (Auto) 1.000 H, Neut % (Auto) 85.5 H, Lymph % (Auto) 8.6 L, Mcduffie % (Auto) 4.7, Eos % (Auto) 0.1, Baso % (Auto) 0.1, Absolute Neuts (auto) 8.6 H, Absolute Lymphs (auto) 0.86, Nucleated RBC % 0 12/25/19 03:23: Sodium 117 L*, Potassium 3.2 L, Chloride 85 L, Carbon Dioxide 21.0, Anion Gap 11, BUN 2 L, Creatinine 0.24 L, Estim Creat Clear Calc 242.16, Est GFR (MDRD) Af Amer 383, Est GFR (MDRD) Non-Af 316, BUN/Creatinine Ratio 8.2 L, Glucose 97, Calcium 7.1 L, Phosphorus 2.4 L, Magnesium 1.6, Total Bilirubin 2.90 H, AST 166 H, ALT 50, Alkaline Phosphatase 406 H, Lactate Dehydrogenase 377 H, Total Protein 5.2 L, Albumin 1.8 L, Globulin 3.4, Albumin/Globulin Ratio 0.5 L 12/25/19 03:23: Troponin I < 0.015 12/25/19 03:23: Free T4 0.77 12/25/19 05:31: POC Glucose 102 12/25/19 08:48: Serum Osmolality 248 L 12/25/19 09:40: Urine Osmolality 280, Ur Random Sodium 45 12/25/19 11:45: POC Glucose 183 H 12/25/19 11:55: Sodium Pending, Potassium Pending, Chloride Pending, Carbon Dioxide Pending, Anion Gap Pending, BUN Pending, Creatinine Pending, Est GFR (MDRD) Af Amer Pending, Est GFR (MDRD) Non-Af Pending, BUN/Creatinine Ratio Pending, Glucose Pending, Calcium Pending Current Medications Albuterol/Ipratropium (Duoneb) 3 ml INHALATION Q4HWA.RT [facility] Last Admin: 12/25/19 11:14 Dose: 3 ml Documented by: Aspirin (Ecotrin) 81 mg PO DAILYCM [facility] Last Admin: 12/25/19 09:37 Dose: 81 mg Documented by: Bisacodyl (Dulcolax) 10 mg RECTAL DAILY PRN PRN Reason: Constipation Dextrose (D50w Syringe) 0 gm IV X1 PRN; Protocol PRN Reason: Hypoglycemia Dicyclomine HCl (Bentyl) 20 mg PO Q6H PRN PRN PRN Reason: abdominal discomfort Folic Acid (Folic Acid) 1 mg PO DAILY@0800 [facility] Last Admin: 12/25/19 09:38 Dose: 1 mg Documented by: Furosemide (Lasix) 40 mg IV BID [facility] Last Admin: 12/25/19 06:52 Dose: 40 mg Documented by: Gabapentin (Neurontin) 300 mg PO Q8H PRN PRN PRN Reason: moderate to severe anxiety Glucagon () 1 mg IM .X1 PRN PRN Reason: Hypoglycemia Hydroxyzine Pamoate (Vistaril Pamoate Capsule) 50 mg PO Q4H PRN PRN PRN Reason: mild anxiety Sodium Chloride () 1,000 mls @ 0 mls/hr IV .Q0M [facility] Ciprofloxacin (Cipro) 400 mg in 200 mls @ 200 mls/hr IV Q12 [facility] Last Infusion: 12/25/19 11:17 Dose: Infused Documented by: Metronidazole (Flagyl) 500 mg in 100 mls @ 100 mls/hr IV Q8 [facility] Last Infusion: 12/25/19 06:24 Dose: Infused Documented by: Sodium Chloride () 250 mls @ 15 mls/hr IV .[id number] PRN PRN Reason: Saline Flush Last Infusion: 12/25/19 06:24 Dose: 15 mls/hr Documented by: Sodium Chloride () 250 mls @ 15 mls/hr IV .[id number] PRN PRN Reason: Additional IVPB Infusion Loperamide HCl (Imodium) 2 mg PO Q4H PRN PRN PRN Reason: LOOSE STOOLS Metoprolol Succinate (Toprol Xl (Beta Tomy)) 25 mg PO DAILY [facility] Last Admin: 12/25/19 09:39 Dose: 25 mg Documented by: Nicotine (Nicoderm Cq (Pbkc)) 21 mg TRANSDERM. DAILY [facility] Last Admin: 12/25/19 09:44 Dose: Not Given Documented by: Nitroglycerin (Nitrostat) 0.4 mg SUBLINGUAL Q5M PRN PRN Reason: CARDIAC/CHEST PAIN Nutritional Formula (Lactose Free) (Ensure Enlive) 120 ml PO 4X/DAY [facility] Last Admin: 12/25/19 09:37 Dose: 120 ml Documented by: Ondansetron HCl (Zofran) 4 mg IV Q8H PRN PRN PRN Reason: NAUSEA/VOMITING Sodium Chloride () 10 - 40 ml IV UD PRN PRN Reason: SALINE FLUSH Last Admin: 12/25/19 06:52 Dose: 10 ml Documented by: Thiamine HCl (Vitamin B1) 100 mg PO DAILYCM [facility] Last Admin: 12/25/19 09:38 Dose: 100 mg Documented by: Trazodone HCl (Desyrel) 100 mg PO QHS PRN PRN Reason: INSOMNIA Assessment/Plan All Active Problems (Last Updated 08/23/18 @ 10:23 by Gwen Parson) Debility (Acute) Hyponatremia (Acute) Elevated liver enzymes (Acute) hyponatremia. Clinically hypervolemic. Has a new diagnosis of fatty liver likely related to alcohol. Apparently he has poor appetite for the last few weeks. Looks pretty emaciated. Urine sodium is low, urine osmolality is high. All the labs are consistent with hypervolemic hyponatremia from liver disease. She is responding well to IV Lasix. Has about 600 cc of urine output since 8 AM. We'll repeat a BMP this afternoon. If the sodium is still low, will add salt tablets. will follow thank you
[2019-12-25 13:12] LABS: Anion Gap 13 (5-15); BUN 2 mg/dL (7-18); BUN/Creat Ratio 3.4 RATIO (10-20); Calcium,Total 7.9 mg/dL (8.5-10.1); Chloride 86 mmol/L (98-107); EST Glomerular Filtration Rate 113 mL/min (>60); Est Glom Filt Rate - Afr Amer 137 mL/min (>60); Estimated Creatinine Clearance 94.56 ml/min; Glucose 154 mg/dL (74-106); Potassium 2.7 mmol/L (3.5-5.1); Sodium Level 120 mmol/L (136-145)
[2019-12-25 13:37] LABS: Body Fluid Mononuclear WBC # 0.023 10^3/uL; Body Fluid Mononuclear WBC % 71.9 %; Body Fluid Polynuclear WBC # 0.009 10^3/uL; Body Fluid Polynuclear WBC % 28.1 %; Body Fluid Total Cells Counted 0.046 10^3/ul; White Blood Count/Body Fluid 0.032 10^3/uL
--- NOTE | 2019-12-25 13:48 | PN_ITS ---
Patient Problems: Active and Suspected Problems (Last Updated 08/23/18 @ 10:23 by Gwen Parson) Debility (Acute) Hyponatremia (Acute) Elevated liver enzymes (Acute) Subjective: Patient seen and examined. She was admitted for debility and generalized weakness. She stated she had been unwell for several months, since January 2019 but had not been going to the hospital. She had been getting progressively weak and was found to have pedal edema and abdominal distention as well as jaundice with blood sugar of 48. She had admitted to not eating well at home. He was also found to be severely hyponatremic and is been managed for acute hyponatremia as well as recurrent hypoglycemia, ascites and transaminitis as well as thrombocytopenia. Patient seen and examined this morning. Still complains of feeling very weak and tired. She denied any cough, chest pain, nausea vomiting or diarrhea. She did admit to abdominal distention. Review of systems otherwise negative. Patient noted to be tachycardic with heart rate being in the 04/06/2017 range. Sodium this morning was 118. Hemoglobin is dropped to 9.9 from 12.1 on admiss ion and WBC is 10. BNP is still pending. Vitals/I&O's: Vital Signs Temp Pulse Resp BP Pulse Ox 99.1 F 116 H 12 107/68 98 12/25/19 13:11 12/25/19 13:11 12/25/19 13:11 12/25/19 13:11 12/25/19 13:11 Oxygen Delivery Method [3] Room Air Oxygen Delivery Method [2] Room Air Oxygen Delivery Method [1 ( Room Air Initial Baseline)] Oxygen Delivery Method Room Air Weight: 117 lb 11.629 oz Body Mass Index (BMI) 20.2 Finger Stick Blood Glucose 47 Intake and Output for Last 24 Hours 12/23/19 12/24/19 12/25/19 23:59 23:59 23:59 Intake Total 750.25 / 750.25 2351.3333 / 2351.3333 Output Total 400 / 400 3870 / 3870 Balance 350.25 / 350.25 -1518.6667 / -1518.6667 General: Alert, Oriented x3, Cooperative, Lethargic, - - frail, looks much older than stated age HEENT: Atraumatic, PERRLA, EOMI, Normocephalic, - - jaundiced sclera Oral: Dry Mucosa Neck: Supple, No JVD, Negative Carotid Bruits Lungs: Clear to auscultation, Normal air movement, No rhonchi, No wheeze Cardiovascular: Regular Rhythm, Normal S1, Normal S2, No murmurs, Tachycardic Abdomen: Bowel Sounds Present, Soft, Non Tender, Distended - positive fluid thrill, indicative of ascites Extremities: No cyanosis Skin: - - Has petechia on upper extremities. Musculoskeletal: No Tenderness to Palpation of Joints or Extremities Lymphatic: No Cervical, Supraclavicular, or Inguinal Adenopathy Neurological: Cranial nerves II-XII grossly intact, Neuro grossly intact, Motor Exam 5/5 strength throughout Psych/Mental Status: Normal Affect, Appropriate, Alert and oriented to time, place, person, mood and affect Microbiology Past 72 Hours 12/24/19 16:25 Urine, Catheterized Urine Culture - Preliminary Presumptive E. coli Laboratory Results 12/24/19 16:15: WBC 11.9 H, RBC 3.24 L, Hgb 12.1, Hct 32.7 L, MCV 100.9 H, MCH 37.3 H, MCHC 37.0 H, RDW Std Deviation 55.7 H, RDW Coeff of Vickie 14.9 H, Plt Count 128 L, MPV 10.9, Immature Gran % (Auto) 1.000 H, Neut % (Auto) 79.3 H, Lymph % (Auto) 14.4 L, Pendleton % (Auto) 4.9, Eos % (Auto) 0.1, Baso % (Auto) 0.3, Absolute Neuts (auto) 9.5 H, Absolute Lymphs (auto) 1.72, Nucleated RBC % 0 12/24/19 16:15: PT 13.4, INR 1.1 12/24/19 16:15: Sodium 118 L*, Potassium 4.0, Chloride 83 L, Carbon Dioxide 21.0, Anion Gap 14, BUN 2 L, Creatinine 0.25 L, Estim Creat Clear Calc 232.48, Est GFR (MDRD) Af Amer 367, Est GFR (MDRD) Non-Af 304, BUN/Creatinine Ratio 7.9 L, Glucose 46 L, Calcium 8.0 L, Troponin I < 0.015 12/24/19 16:15: Lactic Acid 2.0 12/24/19 16:15: B-Natriuretic Peptide Pending 12/24/19 16:17: POC Glucose 52 L 12/24/19 16:25: Urine Color Elsa, Urine Clarity Sl. Cloudy, Urine pH 6.0, Ur Specific Afton 1.025, Urine Protein 15 H, Urine Glucose (UA) Normal, Urine Ketones 50 H, Urine Occult Blood 10 H, Urine Nitrite Positive H, Urine Bilirubin 3 H, Urine Urobilinogen 12 H, Ur Leukocyte Esterase 25 H, Urine RBC 0 SEEN, Urine WBC 0-5 SEEN, Ur Squamous Epith Cells 0 SEEN, Urine Bacteria 4+, Urine Mucus 0 SEEN 12/24/19 16:25: Urine Opiates Screen NEGATIVE, Urine Methadone Screen NEGATIVE, Ur Barbiturates Screen NEGATIVE, Ur Phencyclidine Scrn NEGATIVE, Ur Amphetamines Screen NEGATIVE, U Methamphetamin-MDMA NEGATIVE, U Benzodiazepines Scrn NEGATIVE, Urine Cocaine Screen NEGATIVE, U Cannabinoids Screen NEGATIVE, Ur Drug Screen Comment 12/24/19 16:25: Urine Osmolality 509 12/24/19 16:25: Urine Creatinine 91.40 12/24/19 16:25: Ur Random Sodium < 5 12/24/19 16:45: COVID-19 (NENA) Negative 12/24/19 18:02: Sodium 118 L*, Potassium 4.0, Chloride 85 L, Carbon Dioxide 20.0 L, Anion Gap 13, BUN 2 L, Creatinine 0.24 L, Estim Creat Clear Calc 242.16, Est GFR (MDRD) Af Amer 390, Est GFR (MDRD) Non-Af 323, BUN/Creatinine Ratio 8.3 L, Glucose 94, Calcium 7.6 L, Total Bilirubin 3.40 H, Direct Bilirubin 2.13 H, AST 196 H, ALT 57 H, Alkaline Phosphatase 496 H, Total Protein 6.2 L, Albumin 1.9 L, Globulin 4.3 H, Lipase 321 12/24/19 19:22: POC Glucose 47 L 12/24/19 21:25: Lactic Acid 1.9 12/24/19 21:25: Phosphorus 1.8 L, Magnesium 2.0, Troponin I 0.016, TSH 6.56 H 12/24/19 21:25: Serum Osmolality 276, Salicylates < 1.7 L, Acetaminophen < 2.0 L 12/24/19 21:25: Carcinoembryonic Ag Pending, Hepatitis A IgM Ab Pending, Hep Bs Antigen Pending, Hep B Core IgM Ab Pending, Hepatitis C Ab (EIA) Pending 12/24/19 23:19: POC Glucose 104 12/25/19 00:20: Troponin I < 0.015 12/25/19 03:23: WBC 10.0, RBC 2.63 L, Hgb 9.9 L, Hct 26.9 L, MCV 102.3 H, MCH 37.6 H, MCHC 36.8 H, RDW Std Deviation 56.2 H, RDW Coeff of Vickie 15.1 H, Plt Count 103 L, MPV 10.6, Immature Gran % (Auto) 1.000 H, Neut % (Auto) 85.5 H, Lymph % (Auto) 8.6 L, Pendleton % (Auto) 4.7, Eos % (Auto) 0.1, Baso % (Auto) 0.1, Absolute Neuts (auto) 8.6 H, Absolute Lymphs (auto) 0.86, Nucleated RBC % 0 12/25/19 03:23: Sodium 117 L*, Potassium 3.2 L, Chloride 85 L, Carbon Dioxide 21 .0, Anion Gap 11, BUN 2 L, Creatinine 0.24 L, Estim Creat Clear Calc 242.16, Est GFR (MDRD) Af Amer 383, Est GFR (MDRD) Non-Af 316, BUN/Creatinine Ratio 8.2 L, Glucose 97, Calcium 7.1 L, Phosphorus 2.4 L, Magnesium 1.6, Total Bilirubin 2.90 H, AST 166 H, ALT 50, Alkaline Phosphatase 406 H, Lactate Dehydrogenase 377 H, Total Protein 5.2 L, Albumin 1.8 L, Globulin 3.4, Albumin/Globulin Ratio 0.5 L 12/25/19 03:23: Troponin I < 0.015 12/25/19 03:23: Free T4 0.77 12/25/19 05:31: POC Glucose 102 12/25/19 08:48: Serum Osmolality 248 L 12/25/19 09:40: Urine Osmolality 280, Ur Random Sodium 45 12/25/19 11:45: POC Glucose 183 H 12/25/19 11:55: Sodium 120 L, Potassium 2.7 L*, Chloride 86 L, Carbon Dioxide 21.0, Anion Gap 13, BUN 2 L, Creatinine 0.60, Estim Creat Clear Calc 94.56, Est GFR (MDRD) Af Amer 137, Est GFR (MDRD) Non-Af 113, BUN/Creatinine Ratio 3.4 L, Glucose 154 H, Calcium 7.9 L 12/25/19 12:30: Fluid Glucose Pending, Fluid Total Protein Pending, Fluid LDH Pending 12/25/19 12:30: Fluid Source Pending, Fluid Color Pending, Fluid Appearance Pending, Fluid WBC 0.032, Fluid RBC Pending, Fluid Tot Cell Count 0.046 H, Fld Polynuclear WBCs # 0.009, Fld Polynuclear WBCs % 28.1, Fluid Mononuclear WBCs 0.023, Fld Mononuclear WBCs % 71.9, Fl Pathologist Comment Pending, Fluid Comment 2 Pending Diagnostic Data Abdomen/Pelvis CT 12/24/19 16:23 IMPRESSION: Small bilateral pleural effusions with overlying atelectasis. 6 mm nodule in the right middle lobe. Bowel wall thickening in the ascending colon which is consistent with colitis. Diffuse fatty infiltration of the liver. Large amount of ascites. Normal kidneys. No hydronephrosis. Distended gallbladder. No calcified gallstones. Atherosclerosis and coronary artery disease. Electronically Signed: Bennett Everett, at 17:28 EDT Tel , Service support , Chest X-Ray 12/24/19 16:54 IMPRESSION: No acute thoracic pathology. Electronically Signed: Bennett Everett, at 17:31 EDT Tel , Service support , Liver Ultrasound 12/24/19 20:45 IMPRESSION: Fatty infiltration of the liver. There is biliary sludge dependent within the gallbladder. Small ascites. Electronically Signed: Farhan Acuña, at 9:08 EDT Tel , Service support , Paracentesis Ultrasound 12/24/19 20:45 IMPRESSION: Successful ultrasound-guided paracentesis. Electronically Signed: Farhan Acuña, at 13:28 EDT Tel , Service support , Current Medications Albuterol/Ipratropium (Duoneb) 3 ml INHALATION Q4HWA.RT [facility] Last Admin: 12/25/19 11:14 Dose: 3 ml Documented by: Aspirin (Ecotrin) 81 mg PO DAILYCM [facility] Last Admin: 12/25/19 09:37 Dose: 81 mg Documented by: Bisacodyl (Dulcolax) 10 mg RECTAL DAILY PRN PRN Reason: Constipation Dextrose (D50w Syringe) 0 gm IV X1 PRN; Protocol PRN Reason: Hypoglycemia Dicyclomine HCl (Bentyl) 20 mg PO Q6H PRN PRN PRN Reason: abdominal discomfort Folic Acid (Folic Acid) 1 mg PO DAILY@0800 [facility] Last Admin: 12/25/19 09:38 Dose: 1 mg Documented by: Furosemide (Lasix) 40 mg IV BID [facility] Last Admin: 12/25/19 06:52 Dose: 40 mg Documented by: Gabapentin (Neurontin) 300 mg PO Q8H PRN PRN PRN Reason: moderate to severe anxiety Glucagon () 1 mg IM .X1 PRN PRN Reason: Hypoglycemia Hydroxyzine Pamoate (Vistaril Pamoate Capsule) 50 mg PO Q4H PRN PRN PRN Reason: mild anxiety Sodium Chloride () 1,000 mls @ 0 mls/hr IV .Q0M CRISTIAN Ciprofloxacin (Cipro) 400 mg in 200 mls @ 200 mls/hr IV Q12 [facility] Last Infusion: 12/25/19 11:17 Dose: Infused Documented by: Metronidazole (Flagyl) 500 mg in 100 mls @ 100 mls/hr IV Q8 [facility] Last Infusion: 12/25/19 06:24 Dose: Infused Documented by: Sodium Chloride () 250 mls @ 15 mls/hr IV .[id number] PRN PRN Reason: Saline Flush Last Infusion: 12/25/19 06:24 Dose: 15 mls/hr Documented by: Sodium Chloride () 250 mls @ 15 mls/hr IV .[id number] PRN PRN Reason: Additional IVPB Infusion Potassium Chloride () 10 meq in 100 mls @ 100 mls/hr IV BOLUS Q1H [facility] Stop: 12/25/19 18:29 Loperamide HCl (Imodium) 2 mg PO Q4H PRN PRN PRN Reason: LOOSE STOOLS Metoprolol Succinate (Toprol Xl (Beta Tomy)) 25 mg PO DAILY [facility] Last Admin: 12/25/19 09:39 Dose: 25 mg Documented by: Nicotine (Nicoderm Cq (Pbkc)) 21 mg TRANSDERM. DAILY [facility] Last Admin: 12/25/19 09:44 Dose: Not Given Documented by: Nitroglycerin (Nitrostat) 0.4 mg SUBLINGUAL Q5M PRN PRN Reason: CARDIAC/CHEST PAIN Nutritional Formula (Lactose Free) (Ensure Enlive) 120 ml PO 4X/DAY [facility] Last Admin: 12/25/19 09:37 Dose: 120 ml Documented by: Ondansetron HCl (Zofran) 4 mg IV Q8H PRN PRN PRN Reason: NAUSEA/VOMITING Potassium Chloride (K-Dur) 60 meq PO X1 ONE Stop: 12/25/19 14:01 Sodium Chloride () 10 - 40 ml IV UD PRN PRN Reason: SALINE FLUSH Last Admin: 12/25/19 06:52 Dose: 10 ml Documented by: [facility]iamine [facility] (Vitamin B1) [facility] Last Admin: 12/25/19 09:38 Dose: 100 mg Documented by: Trazodone HCl (Desyrel) 100 mg PO QHS PRN PRN Reason: INSOMNIA STROKE Vital Signs/Narrative: Vital Signs Temp Pulse Pulse Pulse Pulse Resp Resp 12/25/19 13:11 99.1 F 116 H 12 12/25/19 13:07 125 H 118 H 117 H 21 H 12/25/19 11:14 118 H 20 H Resp Resp BP BP BP BP Pulse Ox 12/25/19 13:11 107/68 98 12/25/19 13:07 23 H 20 H 112/70 119/73 112/71 12/25/19 11:14 94 Medical Necessity - Tobacco Use Smoking Status: Current every day smoker Tobacco Use: Cigarettes Assessment/Plan All Active Problems (Last Updated 08/23/18 @ 10:23 by Gwen Parson) Debility (Acute) Hyponatremia (Acute) Elevated liver enzymes (Acute) # acute Hyponatremia * sodium was 118 on admissin, now 120 * serum osmolality is low at 248 * Patient is clinically hypervolemic. Urine sodium is low and urine osmolality is high. * Being diuresed with IV Lasix. * nephrology consulted, think it is hypervolemic hyponatremia from liver disease as patient has been just diagnosed with fatty liver disease likely due to alcohol. * Continue diuresing with IV Lasix. Per nephrology if sodium is low, will add salt tablets. * #Hypokalemia: * Potassium is 2.7. Will replace and monitor. * Check magnesium level and replace as necessary. phosphorous level is also low, so will replace as needed. #recurrent hypoglycemia * D10 infusion was discontinued overnight * patient admitted to not eating well. encourage oral diet * nutrition on board # Transaminitis * liver enzymes were elevated on admission, but have now started trending down * Total bilirubin is trended down to 2.9 from 3.4. AST is down to 166 from 196 and ALT has normalized to 50. ALP is also down 406 from 496. * Also has ascites and had paracentesis done today. Fluid analysis pending. * Liver ultrasound showed fatty infiltration of the liver with biliary sludge dependently within the gallbladder and small ascites. * This is likely due to alcoholic liver disease as patient has a history of chronic alcohol abuse. * Will trend liver enzymes. * She had drainage of 2.2 L of fluid removed today via paracentesis * Awaiting ascitic fluid albumin to calculate SAAG to determine etiology of ascites. * Fluid LDH is 47 which is more indicative of a transudate. #Hypocalcemia: Calcium was 7.1 today. Will replace. # Severe protein calorie malnutrition * Albumin is only 1.7. Nutrition on board. # Thrombocytopenia * Likely due to chronic liver disease. * Has petechiae on her extremities. Platelets are 103. * No use of heparin. Will trend platelets. # Chronic alcohol abuse * admits to a chronic history of alcohol abuse. Will monitor for alcohol withdrawal and start alcohol withdrawal protocol as needed. * # Cad s/p stent: on aspirin and statin. Says she has been off brilinta for ~ 3 years. Howerver, her cardiac cath was in 2018 #ascending colon thickening: Suspicious for colitis. Patient however had no diarrhea. On ciprofloxacin and Flagyl. CEA is pending. DVT prophylaxis; SCDs Code status: full code Inpatient E&M: 65497 Subs Hosp L3
[2019-12-25 13:58] LABS: Glucose, Body Fluid 133 mg/dL (40-70); LDH,Body Fluid 47 Units/l (Not Establ.); Protein, Body Fluid 0.5 g/dL (Not Establ.)
--- NOTE | 2019-12-25 13:58 | CASEMGMT ---
GLENDA met with patient and her friend in the room. SW discussed a d/c plan and patient said she plans on going home as he is a big help. SW asked if she was sure as she is really weak. She said she is going home. SW will check back when patient is alone to ask about her ETOH use. Mar SINGER MSW
[2019-12-25] MEDS: Potassium Chloride 10mEq/100mL 10 MEQ/100 ML IV.SOLN. 100 MEQ IV BOLUS ×4 (14:06→20:07)
--- NOTE | 2019-12-25 14:19 | CASEMGMT ---
MIGUELINA MOONEY assessment: Face to Face with patient for initial transition planning/care coordination assessment. MIGUELINA MOONEY introduced self and role at [facility], pt voices understanding and consents to assessment at this time. Pt is sitting up in bed in no distress at this time. Pt is A/Ox4 at this time and answers all questions appropriately at this time. Care providers, pharmacy, and demographics verified at this time. Presentation: bilat LE edema/weakness for last week, decreased urination, low bld sugar Admitting dx: Debility, hyponatremia, ascites PCP: Bebe Rdz Specialists: [facility] Preferred Pharmacy: [facility] Insurance: [employer] Prescription Benefit: [employer] Living Will/HPOA: Pt states does not have LW/HPOA and declines AD info at this time. LNOK: Darrick Gallegos, sig other Living Arrangements: Pt states lives with sig other in with 4 steps in and 3 steps to bathroom and states no concerns at home at this time. Pt states was normally independent with ADL's up until 1 week ago and increased weakness since. Transportation: Pt states sig other drives and states no transportation concerns at this time. DME/HHC: Pt states has a cane and walker and states no need for any further DME at this time. Pt states no hx of HHC or SNF in the past. Pt states no concerns with going home at time of discharge. Pt states is unemployed but has applied for disability. Pt states smokes a pack/day of cigarettes and drinks a 'tall boy' beer daily. Pt states no further concerns/needs at this time. CM to follow PT/OT evals and for any further discharge planning/needs. Advised pt to ask for CM if any further questions/concerns/needs arise, voices understanding. Pt Goal: Home Plan: [place] MIGUELINA MOONEY
[2019-12-25 14:23] LABS: Lymphocytes 4 %; Macrophages 32 %; Mesothelial Cells 13 %; Monocytes 37 %; Neutrophil (Segs) 13 %; Plasma Cell/BodyFluid 1 %
[2019-12-25 14:24] LABS: Appearance/Body Fluid CLEAR; Auto B Fluid Analyzer BKGD Ct COUNTS W/IN LIMITS (W/IN LIMITS); Color/Body Fluid LT YEL; Source- Body Fluid OTHER
[2019-12-25 14:25] LABS: Body Fluid QC Type(s) BF1Q; Red Cell Count/Body Fluid 11 /mm3
[2019-12-25] MEDS: Albumin Human 25% (100 mL) 25 GM/100 ML BAG IV (15:28)
[2019-12-25 16:25] LABS: Magnesium 1.6 mg/dL (1.6-2.6)
[2019-12-25 16:38] LABS: Anion Gap 9 (5-15); BUN 2 mg/dL (7-18); BUN/Creat Ratio 4.9 RATIO (10-20); Calcium,Total 7.5 mg/dL (8.5-10.1); Chloride 88 mmol/L (98-107); Creatinine, Serum 0.41 mg/dL (0.55-1.02); EST Glomerular Filtration Rate 173 mL/min (>60); Est Glom Filt Rate - Afr Amer 209 mL/min (>60); Estimated Creatinine Clearance 138.38 ml/min; Glucose 136 mg/dL (74-106); Potassium 3.5 mmol/L (3.5-5.1); Sodium Level 120 mmol/L (136-145)
--- NOTE | 2019-12-25 19:03 | NURSING ---
all patient care and medication administration complete by Radha Lim, Student Nurse, done under the supervision of this RN.
[2019-12-26] VITALS (15 sets, daily range): BP systolic 85–97; BP diastolic 56–64; PULSE 94–117; RESP 12–20; TEMP 36.6–37.2; O2SAT 95–98
[2019-12-26 05:06] LABS: HEPATITIS B SURFACE AG Negative (Negative); Hepatitis A IgM Antibody Negative (Negative); Hepatitis B Core AB IgM Negative (Negative)
[2019-12-26] MEDS: metroNIDAZOLE 500 MG/100 ML BAG 100 MG IV (05:11)
[2019-12-26] MEDS: 0.9% Saline Lock 10 ML Syringe IV ×2 (05:11→08:40)
[2019-12-26 05:56] LABS: Absolute Lymphocyte Count 1.23 X10^3/uL (0.83-4.51); Absolute Neutrophil Count 7.6 X10^3/uL (2.0-7.7); Basophil# 0.02 X10^3/uL; Basophil% 0.2 % (0-1); Hematocrit 25.7 % (37-47); Hemoglobin 9.1 g/dL (12.0-15.0); Lymphocyte # 1.23 X10^3/ul (4.0); Lymphocyte % 13.3 % (19-41); Mean Corp Hgb Conc 35.4 g/dL (32-36); Mean Corpuscular Hgb 36.7 pg (27.0-32.0); Mean Corpuscular Volume 103.6 fL (81-99); Monocyte# 0.33 X10^3/uL; Monocyte% 3.6 % (0-10); NRBC Flagged by Analyzer 0 % (0-5); Neutrophil # 7.56 X10^3/uL (2.7-7.7); Neutrophil % 81.9 % (47-70); POSITIVE COUNT YES; Platelet Count 84 K/mm3 (150-450); RBC Distribution Width CV 15.5 % (11.6-14.6); RBC Distribution Width SD 59.1 fl (35.1-43.9); Red Blood Count 2.48 M/mm3 (4.2-5.4); White Blood Count 9.2 K/mm3 (4.4-11.0)
[2019-12-26 06:30] LABS: ALB/GLOB Ratio 0.7 RATIO (0.9-2.4); AST(SGOT) 141 U/L (15-37); Alanine Aminotransfer ALT/SGPT 43 U/L (13-56); Albumin, Serum 2.1 g/dL (3.2-5.0); Alkaline Phosphatase 313 U/L (45-117); Anion Gap 7 (5-15); BUN 1 mg/dL (7-18); BUN/Creat Ratio 3.6 RATIO (10-20); Calcium,Total 7.8 mg/dL (8.5-10.1); Chloride 94 mmol/L (98-107); Creatinine, Serum 0.28 mg/dL (0.55-1.02); EST Glomerular Filtration Rate 269 mL/min (>60); Est Glom Filt Rate - Afr Amer 325 mL/min (>60); Estimated Creatinine Clearance 202.63 ml/min; Globulin 3.1 g/dL (2.2-4.2); Glucose 88 mg/dL (74-106); Magnesium 1.5 mg/dL (1.6-2.6); Phosphorus 1.6 mg/dL (2.5-4.9); Potassium 3.2 mmol/L (3.5-5.1); Protein, Total 5.2 g/dL (6.4-8.2); Sodium Level 128 mmol/L (136-145)
[2019-12-26 07:11] LABS: Bedside Glucose 119 mg/dL (70-110)
[2019-12-26] MEDS: Ipratropium/Albuterol Sulfate 3 ML AMPUL.NEB INHALATION ×4 (07:18→19:08)
--- NOTE | 2019-12-26 07:27 | NURSING ---
This RN reviewed charting of Seven Pierson RN.
--- NOTE | 2019-12-26 07:40 | PN_ITS ---
Patient Problems: Active and Suspected Problems (Last Updated 08/23/18 @ 10:23 by Gwen Parson) Debility (Acute) Hyponatremia (Acute) Elevated liver enzymes (Acute) Subjective: Patient seen and examined. She still remains frail. She had paracentesis yesterday with removal of 2.2 L of fluid. She has remained hemodynamically stable otherwise. Sodium is up to 128 today and potassium is 3.2. Phosphate and magnesium also low. CEA antigen is still pending. Vitals/I&O's: Vital Signs Temp Pulse Resp BP Pulse Ox 98.4 F 96 17 95/64 97 12/26/19 06:18 12/26/19 06:18 12/26/19 06:18 12/26/19 06:18 12/26/19 06:18 Oxygen Delivery Method [3] Room Air Oxygen Delivery Method [2] Room Air Oxygen Delivery Method [1 ( Room Air Initial Baseline)] Oxygen Delivery Method Room Air Weight: 117 lb 11.629 oz Body Mass Index (BMI) 20.2 Finger Stick Blood Glucose 47 Intake and Output for Last 24 Hours 12/24/19 12/25/19 12/26/19 23:59 23:59 23:59 Intake Total 750.25 / 750.25 3747.8333 / 3747.8333 300 / 300 Output Total 400 / 400 4670 / 6670 2550 / 2550 Balance 350.25 / 350.25 -922.1667 / -2922.1667 -2250 / -2250 General: Alert, Oriented x3, Cooperative, Lethargic, - - frail, looks much older than stated age HEENT: Atraumatic, PERRLA, EOMI, Normocephalic, - - jaundiced sclera Oral: Dry Mucosa Neck: Supple, No JVD, Negative Carotid Bruits Lungs: Clear to auscultation, Normal air movement, No rhonchi, No wheeze Cardiovascular: Regular Rhythm, Normal S1, Normal S2, No murmurs, Tachycardic Abdomen: Bowel Sounds Present, Soft, Non Tender, Distended - positive fluid thrill, indicative of ascites Extremities: No cyanosis Skin: - - Has petechia on upper extremities. Musculoskeletal: No Tenderness to Palpation of Joints or Extremities Lymphatic: No Cervical, Supraclavicular, or Inguinal Adenopathy Neurological: Cranial nerves II-XII grossly intact, Neuro grossly intact, Motor Exam 5/5 strength throughout Psych/Mental Status: Normal Affect, Appropriate, Alert and oriented to time, place, person, mood and affect Microbiology Past 72 Hours 12/25/19 12:30 Fluid - Ascites Gram Stain - Preliminary 12/24/19 16:25 Urine, Catheterized Urine Culture - Preliminary Presumptive E. coli Laboratory Results 12/24/19 17:55: POC Glucose 119 H 12/25/19 03:23: Free T4 0.77 12/25/19 08:48: Serum Osmolality 248 L 12/25/19 09:40: Urine Osmolality 280, Ur Random Sodium 45 12/25/19 11:45: POC Glucose 183 H 12/25/19 11:55: Sodium 120 L, Potassium 2.7 L*, Chloride 86 L, Carbon Dioxide 21.0, Anion Gap 13, BUN 2 L, Creatinine 0.60, Estim Creat Clear Calc 94.56, Est GFR (MDRD) Af Amer 137, Est GFR (MDRD) Non-Af 113, BUN/Creatinine Ratio 3.4 L, Glucose 154 H, Calcium 7.9 L 12/25/19 12:30: Fluid Glucose 133 H, Fluid Total Protein 0.5, Fluid LDH 47 12/25/19 12:30: Fluid Source OTHER, Fluid Color LT YEL, Fluid Appearance CLEAR, Fluid WBC 0.032, Fluid RBC 11, Fluid Tot Cell Count 0.046 H, Fld Polynuclear WBCs # 0.009, Fld Polynuclear WBCs % 28.1, Fluid Mononuclear WBCs 0.023, Fld Mononuclear WBCs % 71.9, Fluid Neutrophils 13, Fluid Lymphocytes 4, Fluid Monocytes 37, Fluid Plasma Cells 1, Fluid Macrophages 32, Fld Mesothelial Cells 13, Fl Pathologist Comment May follow, Fluid Comment 2 TNP 12/25/19 12:30: Miscellaneous Test Pending 12/25/19 16:02: Sodium 120 L, Potassium 3.5, Chloride 88 L, Carbon Dioxide 23.0, Anion Gap 9, BUN 2 L, Creatinine 0.41 L, Estim Creat Clear Calc 138.38, Est GFR (MDRD) Af Amer 209, Est GFR (MDRD) Non-Af 173, BUN/Creatinine Ratio 4.9 L, Glucose 136 H, Calcium 7.5 L 12/25/19 16:02: Magnesium 1.6 12/26/19 05:30: Sodium 128 L, Potassium 3.2 L, Chloride 94 L, Carbon Dioxide 27.0, Anion Gap 7, BUN 1 L, Creatinine 0.28 L, Estim Creat Clear Calc 202.63, Est GFR (MDRD) Af Amer 325, Est GFR (MDRD) Non-Af 269, BUN/Creatinine Ratio 3.6 L, Glucose 88, Calcium 7.8 L, Phosphorus 1.6 L, Magnesium 1.5 L, Total Bilirubin 4.70 H, AST 141 H, ALT 43, Alkaline Phosphatase 313 H, Total Protein 5.2 L, Albumin 2.1 L, Globulin 3.1, Albumin/Globulin Ratio 0.7 L 12/26/19 05:30: WBC 9.2, RBC 2.48 L, Hgb 9.1 L, Hct 25.7 L, MCV 103.6 H, MCH 36.7 H, MCHC 35.4, RDW Std Deviation 59.1 H, RDW Coeff of Vickie 15.5 H, Plt Count 84 L, MPV 11.0, Immature Gran % (Auto) 1.000 H, Neut % (Auto) 81.9 H, Lymph % (Auto) 13.3 L, Centre % (Auto) 3.6, Eos % (Auto) 0.0, Baso % (Auto) 0.2, Absolute Neuts (auto) 7.6, Absolute Lymphs (auto) 1.23, Nucleated RBC % 0 Diagnostic Data Abdomen/Pelvis CT 12/24/19 16:23 IMPRESSION: Small bilateral pleural effusions with overlying atelectasis. 6 mm nodule in the right middle lobe. Bowel wall thickening in the ascending colon which is consistent with colitis. Diffuse fatty infiltration of the liver. Large amount of ascites. Normal kidneys. No hydronephrosis. Distended gallbladder. No calcified gallstones. Atherosclerosis and coronary artery disease. Electronically Signed: Bennett Everett, at 17:28 EDT Tel , Service support , Chest X-Ray 12/24/19 16:54 IMPRESSION: No acute thoracic pathology. Electronically Signed: Bennett Everett, at 17:31 EDT Tel , Service support , Liver Ultrasound 12/24/19 20:45 IMPRESSION: Fatty infiltration of the liver. There is biliary sludge dependent within the gallbladder. Small ascites. Electronically Signed: Real Domenico, at 9:08 EDT Tel , Service support , Paracentesis Ultrasound 12/24/19 20:45 IMPRESSION: Successful ultrasound-guided paracentesis. Electronically Signed: Farhan Acuña, at 13:28 EDT Tel , Service support , Current Medications Albuterol/Ipratropium (Duoneb) 3 ml INHALATION Q4HWA.RT [facility] Last Admin: 12/26/19 07:18 Dose: 3 ml Documented by: Aspirin (Ecotrin) 81 mg PO DAILYCM [facility] Last Admin: 12/25/19 09:37 Dose: 81 mg Documented by: Bisacodyl (Dulcolax) 10 mg RECTAL DAILY PRN PRN Reason: Constipation Dextrose (D50w Syringe) 0 gm IV X1 PRN; Protocol PRN Reason: Hypoglycemia Dicyclomine HCl (Bentyl) 20 mg PO Q6H PRN PRN PRN Reason: abdominal discomfort Folic Acid (Folic Acid) 1 mg PO DAILY@0800 [facility] Last Admin: 12/25/19 09:38 Dose: 1 mg Documented by: Furosemide (Lasix) 40 mg IV BID [facility] Last Admin: 12/25/19 21:38 Dose: 40 mg Documented by: Gabapentin (Neurontin) 300 mg PO Q8H PRN PRN PRN Reason: moderate to severe anxiety Glucagon () 1 mg IM .X1 PRN PRN Reason: Hypoglycemia Hydroxyzine Pamoate (Vistaril Pamoate Capsule) 50 mg PO Q4H PRN PRN PRN Reason: mild anxiety Sodium Chloride () 1,000 mls @ 0 mls/hr IV .Q0M [facility] Ciprofloxacin (Cipro) 400 mg in 200 mls @ 200 mls/hr IV Q12 [facility] Last Infusion: 12/26/19 00:10 Dose: Infused Documented by: Metronidazole (Flagyl) 500 mg in 100 mls @ 100 mls/hr IV Q8 [facility] Last Infusion: 12/26/19 06:21 Dose: Infused Documented by: Sodium Chloride () 250 mls @ 15 mls/hr IV .[id number] PRN PRN Reason: Saline Flush Last Infusion: 12/25/19 09:30 Dose: 0 mls/hr Documented by: Sodium Chloride () 250 mls @ 15 mls/hr IV .[id number] PRN PRN Reason: Additional IVPB Infusion Potassium Phosphate 40 mm/ (Sodium Chloride) 513.3333 mls @ 62.5 mls/hr IV X1 ONE Stop: 12/26/19 15:40 Magnesium Sulfate () 4 gm in 100 mls @ 25 mls/hr IV X1 ONE Stop: 12/26/19 11:27 Loperamide HCl (Imodium) 2 mg PO Q4H PRN PRN PRN Reason: LOOSE STOOLS Metoprolol Succinate (Toprol Xl (Beta Tomy)) 25 mg PO DAILY [facility] Last Admin: 12/25/19 09:39 Dose: 25 mg Documented by: Nicotine (Nicoderm Cq (Pbkc)) 21 mg TRANSDERM. DAILY [facility] Last Admin: 12/25/19 09:44 Dose: Not Given Documented by: Nitroglycerin (Nitrostat) 0.4 mg SUBLINGUAL Q5M PRN PRN Reason: CARDIAC/CHEST PAIN Nutritional Formula (Lactose Free) (Ensure Enlive) 120 ml PO 4X/DAY [facility] Last Admin: 12/25/19 21:37 Dose: Not Given Documented by: Ondansetron HCl (Zofran) 4 mg IV Q8H PRN PRN PRN Reason: NAUSEA/VOMITING Sodium Chloride () 10 - 40 ml IV UD PRN PRN Reason: SALINE FLUSH Last Admin: 12/26/19 05:11 Dose: 10 ml Documented by: Thiamine HCl ([facility]itamin B1) [facility] Last Admin: 12/25/19 09:38 Dose: 100 mg Documented by: Trazodone HCl (Desyrel) 100 mg PO QHS PRN PRN Reason: INSOMNIA STROKE Vital Signs/Narrative: Vital Signs Temp Pulse Resp BP Pulse Ox 12/26/19 06:18 98.4 F 96 17 95/64 97 Medical Necessity - Tobacco Use Smoking Status: Current every day smoker Tobacco Use: Cigarettes Assessment/Plan All Active Problems (Last Updated 08/23/18 @ 10:23 by Gwen Parson) Debility (Acute) Hyponatremia (Acute) Elevated liver enzymes (Acute) # acute Hyponatremia * sodium now up to 128 * being diuresed with IV lasix. Urine output was 2.45 L yesterday and is 2.55 L today. And cumulative negative balance by 2.82 L. * Nephrology on board- to hold off on lasix. * #Hypokalemia/ hypomagnesemia and hypophosphatemia * Potassium is 3.2 with magnesium of 1.6 and phosphorus level of 1.5. Replace and monitor. * #recurrent hypoglycemia * Resolved. Patient now eating well. # Transaminitis and ascites * Bilirubin is trended up to 4.7 today though AST and ALT continue trending down. * Liver ultrasound showed fatty infiltration of the liver with biliary sludge dependently within the gallbladder and small ascites. * This is likely due to alcoholic liver disease as patient has a history of chronic alcohol abuse. * Will trend liver enzymes. * Awaiting ascitic fluid albumin to calculate SAAG to determine etiology of ascites. * Elevated CEA antigen * CEA antigen was 8.7. * Pelvic USG showed normal right ovary and nonvisualisation of left ovary, with moderate amount of ascites. * the elevated CEA can also be due to patient;s liver disease * she is at the age for routine colonoscopy screening, but hasnt had that. Will need to follow up with a readiness paraprofessional on outpatient basis for routine colonoscopy for colon cancer screening. #Hypocalcemia: Calcium is 7.8 today. will monitor # Severe protein calorie malnutrition * Albumin is only 1.7. Nutrition on board. # Thrombocytopenia * Likely due to chronic liver disease. * Has petechiae on her extremities. Platelets are down to 84 today * No use of heparin. Will trend platelets. # Chronic alcohol abuse * admits to a chronic history of alcohol abuse. Will monitor for alcohol withdrawal and start alcohol withdrawal protocol as needed. * # Cad s/p stent: on aspirin and statin. #ascending colon thickening: Suspicious for colitis. Patient however had no diarrhea. On ciprofloxacin and Flagyl. DVT prophylaxis; SCDs Code status: full code Inpatient E&M: 02961 Subs Hosp L3
[2019-12-26 07:58] LABS: Carcinoembryonic Antigen 8.7 ng/mL (0.0-4.7); Hep C Antibodies 0.1 s/co ratio (0.0-0.9)
--- NOTE | 2019-12-26 08:01 | US_ITS ---
STUDY: ULTRASOUND TRANSVAGINAL CLINICAL: Female, 49 years old. ELEVATED CEA HYSTERECTOMY - BILAT OV REMAIN TECHNIQUE: Transvaginal COMPARISON: None. FINDINGS: Status post hysterectomy. Normal right ovary, measuring 2.8 x 1.4 x 1.8 cm. There are multiple follicles without a dominant cyst. The left ovary is nonvisualized.. Moderate amount of ascites. Polycystic ovary disease: No. US/Transvaginal Non- IMPRESSION: Status post hysterectomy. Normal right ovary. Nonvisualization left ovary. Moderate amount of ascites. Electronically Signed: Noe Wong MD at 11:09 EDT Tel , Service support ,
[2019-12-26] MEDS: Magnesium Sulfate 4gm/100mL 4 GM/100 ML IV.SOLN. IV (08:19)
[2019-12-26] MEDS: Aspirin E.C. 81 MG Tablet PO (08:31)
[2019-12-26] MEDS: Folic Acid 1 MG Tablet PO (08:31)
[2019-12-26] MEDS: Thiamine Hydrochloride 100 MG Tablet PO (08:31)
[2019-12-26] MEDS: Furosemide 40 MG/4 ML Vial IV (08:31)
[2019-12-26] MEDS: Ciprofloxacin 400 MG/200 ML BAG 200 MG IV (10:57)
--- NOTE | 2019-12-26 11:21 | PCM.PN.REN ---
Patient Problems: Active and Suspected Problems (Last Updated 08/23/18 @ 10:23 by Gwen Parson) Debility (Acute) Hyponatremia (Acute) Elevated liver enzymes (Acute) Subjective: no new complaints urine output is good - Physical Exam Vitals/I&O's: Vital Signs Temp Pulse Resp BP Pulse Ox 98.3 F 101 H 12 97/64 96 12/26/19 08:52 12/26/19 08:52 12/26/19 08:52 12/26/19 08:52 12/26/19 08:52 Oxygen Delivery Method [3] Room Air Oxygen Delivery Method [2] Room Air Oxygen Delivery Method [1 ( Room Air Initial Baseline)] Oxygen Delivery Method Room Air Weight: 53.4 kg Body Mass Index (BMI) 20.2 Finger Stick Blood Glucose 47 Intake and Output for Last 24 Hours 12/24/19 12/25/19 12/26/19 23:59 23:59 23:59 Intake Total 750.25 / 750.25 3747.8333 / 3747.8333 300 / 300 Output Total 400 / 400 4670 / 6670 2550 / 2550 Balance 350.25 / 350.25 -922.1667 / -2922.1667 -2250 / -2250 General: Alert, Oriented x3, Cooperative HEENT: Atraumatic, PERRLA, EOMI, Normocephalic Neck: Supple, No JVD, Negative Carotid Bruits Lungs: Clear to auscultation, Normal air movement Cardiovascular: Regular rate, No murmurs Abdomen: Bowel Sounds Present, Soft, Non Tender Extremities: No edema, Capillary Refill Less than 3 Seconds Skin: No rashes, No breakdown Musculoskeletal: No Tenderness to Palpation of Joints or Extremities Neurological: Cranial nerves II-XII grossly intact Psych/Mental Status: Normal Affect, Appropriate Microbiology Past 72 Hours 12/25/19 12:30 Fluid - Ascites Gram Stain - Final 12/25/19 12:30 Fluid - Ascites Body Fluid Culture - Preliminary No growth-Final to follow 12/24/19 16:25 Urine, Catheterized Urine Culture - Final Presumptive E. coli Laboratory Results 12/24/19 17:55: POC Glucose 119 H 12/24/19 21:25: Carcinoembryonic Ag 8.7 H, Hepatitis A IgM Ab Negative, Hep Bs Antigen Negative, Hep B Core IgM Ab Negative, Hepatitis C Ab (EIA) 0.1 12/25/19 11:45: POC Glucose 183 H 12/25/19 11:55: Sodium 120 L, Potassium 2.7 L*, Chloride 86 L, Carbon Dioxide 21.0, Anion Gap 13, BUN 2 L, Creatinine 0.60, Estim Creat Clear Calc 94.56, Est GFR (MDRD) Af Amer 137, Est GFR (MDRD) Non-Af 113, BUN/Creatinine Ratio 3.4 L, Glucose 154 H, Calcium 7.9 L 12/25/19 12:30: Fluid Glucose 133 H, Fluid Total Protein 0.5, Fluid LDH 47 12/25/19 12:30: Fluid Source OTHER, Fluid Color LT YEL, Fluid Appearance CLEAR, Fluid WBC 0.032, Fluid RBC 11, Fluid Tot Cell Count 0.046 H, Fld Polynuclear WBCs # 0.009, Fld Polynuclear WBCs % 28.1, Fluid Mononuclear WBCs 0.023, Fld Mononuclear WBCs % 71.9, Fluid Neutrophils 13, Fluid Lymphocytes 4, Fluid Monocytes 37, Fluid Plasma Cells 1, Fluid Macrophages 32, Fld Mesothelial Cells 13, Fl Pathologist Comment May follow, Fluid Comment 2 TNP 12/25/19 12:30: Miscellaneous Test Pending 12/25/19 16:02: Sodium 120 L, Potassium 3.5, Chloride 88 L, Carbon Dioxide 23.0, Anion Gap 9, BUN 2 L, Creatinine 0.41 L, Estim Creat Clear Calc 138.38, Est GFR (MDRD) Af Amer 209, Est GFR (MDRD) Non-Af 173, BUN/Creatinine Ratio 4.9 L, Glucose 136 H, Calcium 7.5 L 12/25/19 16:02: Magnesium 1.6 12/26/19 05:30: Sodium 128 L, Potassium 3.2 L, Chloride 94 L, Carbon Dioxide 27.0, Anion Gap 7, BUN 1 L, Creatinine 0.28 L, Estim Creat Clear Calc 202.63, Est GFR (MDRD) Af Amer 325, Est GFR (MDRD) Non-Af 269, BUN/Creatinine Ratio 3.6 L, Glucose 88, Calcium 7.8 L, Phosphorus 1.6 L, Magnesium 1.5 L, Total Bilirubin 4.70 H, AST 141 H, ALT 43, Alkaline Phosphatase 313 H, Total Protein 5.2 L, Albumin 2.1 L, Globulin 3.1, Albumin/Globulin Ratio 0.7 L 12/26/19 05:30: WBC 9.2, RBC 2.48 L, Hgb 9.1 L, Hct 25.7 L, MCV 103.6 H, MCH 36.7 H, MCHC 35.4, RDW Std Deviation 59.1 H, RDW Coeff of Vickie 15.5 H, Plt Count 84 L, MPV 11.0, Immature Gran % (Auto) 1.000 H, Neut % (Auto) 81.9 H, Lymph % (Auto) 13.3 L, Moca % (Auto) 3.6, Eos % (Auto) 0.0, Baso % (Auto) 0.2, Absolute Neuts (auto) 7.6, Absolute Lymphs (auto) 1.23, Nucleated RBC % 0 Current Medications Albuterol/Ipratropium (Duoneb) 3 ml INHALATION Q4HWA.RT [facility] Last Admin: 12/26/19 10:49 Dose: 3 ml Documented by: Aspirin (Ecotrin) 81 mg PO DAILYCM [facility] Last Admin: 12/26/19 08:31 Dose: 81 mg Documented by: Bisacodyl (Dulcolax) 10 mg RECTAL DAILY PRN PRN Reason: Constipation Dextrose (D50w Syringe) 0 gm IV X1 PRN; Protocol PRN Reason: Hypoglycemia Dicyclomine HCl (Bentyl) 20 mg PO Q6H PRN PRN PRN Reason: abdominal discomfort Folic Acid (Folic Acid) 1 mg PO DAILY@0800 [facility] Last Admin: 12/26/19 08:31 Dose: 1 mg Documented by: Gabapentin (Neurontin) 300 mg PO Q8H PRN PRN PRN Reason: moderate to severe anxiety Glucagon () 1 mg IM .X1 PRN PRN Reason: Hypoglycemia Hydroxyzine Pamoate (Vistaril Pamoate Capsule) 50 mg PO Q4H PRN PRN PRN Reason: mild anxiety Sodium Chloride () 1,000 mls @ 0 mls/hr IV .Q0M [facility] Ciprofloxacin (Cipro) 400 mg in 200 mls @ 200 mls/hr IV Q12 [facility] Last Admin: 12/26/19 10:57 Dose: 200 mls/hr Documented by: Metronidazole (Flagyl) 500 mg in 100 mls @ 100 mls/hr IV Q8 [facility] Last Infusion: 12/26/19 06:21 Dose: Infused Documented by: Sodium Chloride () 250 mls @ 15 mls/hr IV .[id number] PRN PRN Reason: Saline Flush Last Infusion: 12/25/19 09:30 Dose: 0 mls/hr Documented by: Sodium Chloride () 250 mls @ 15 mls/hr IV .[id number] PRN PRN Reason: Additional IVPB Infusion Potassium Phosphate 40 mm/ (Sodium Chloride) 513.3333 mls @ 62.5 mls/hr IV X1 ONE Stop: 12/26/19 16:42 Last Admin: 12/26/19 08:24 Dose: 62.5 mls/hr Documented by: Magnesium Sulfate () 4 gm in 100 mls @ 25 mls/hr IV X1 ONE Stop: 12/26/19 12:29 Last Admin: 12/26/19 08:19 Dose: 25 mls/hr Documented by: Loperamide HCl (Imodium) 2 mg PO Q4H PRN PRN PRN Reason: LOOSE STOOLS Metoprolol Succinate (Toprol Xl (Beta Tomy)) 25 mg PO DAILY [facility] Last Admin: 12/26/19 09:32 Dose: Not Given Documented by: Nicotine (Nicoderm Cq (Pbkc)) 21 mg TRANSDERM. DAILY [facility] Last Admin: 12/26/19 08:32 Dose: Not Given Documented by: Nitroglycerin (Nitrostat) 0.4 mg SUBLINGUAL Q5M PRN PRN Reason: CARDIAC/CHEST PAIN Nutritional Formula (Lactose Free) (Ensure Enlive) 120 ml PO 4X/DAY [facility] Last Admin: 12/26/19 08:31 Dose: Not Given Documented by: Ondansetron HCl (Zofran) 4 mg IV Q8H PRN PRN PRN Reason: NAUSEA/VOMITING Sodium Chloride () 10 - 40 ml IV UD PRN PRN Reason: SALINE FLUSH Last Admin: 12/26/19 08:40 Dose: 10 ml Documented by: Thiamine [facility] ([facility]) [facility] Last Admin: 12/26/19 08:31 Dose: 100 mg Documented by: Trazodone HCl (Desyrel) 100 mg PO QHS PRN PRN Reason: INSOMNIA Medical Necessity - Tobacco Use Smoking Status: Current every day smoker Tobacco Use: Cigarettes Assessment/Plan All Active Problems (Last Updated 08/23/18 @ 10:23 by Gwen Parson) Debility (Acute) Hyponatremia (Acute) Elevated liver enzymes (Acute) hyponatremia. Clinically hypervolemic. Has a new diagnosis of fatty liver likely related to alcohol. Apparently he has poor appetite for the last few weeks. Looks pretty emaciated. Urine sodium is low, urine osmolality is high. All the labs are consistent with hypervolemic hyponatremia from liver disease. She is responding well to IV Lasix. sodium is now upto 128. hold off lasix for now to slow down the correction a little bit hypokalemia hypomagnesemia hypophosphatemia related to poor nutritional status. BUN is 1. repleted this am dw Dr Anthony will follow thank you
[2019-12-26 12:31] LABS: Magnesium 2.8 mg/dL (1.6-2.6)
--- NOTE | 2019-12-26 12:43 | EKG12_ITS ---
Test Reason : Blood Pressure : / mmHG Vent. Rate : 105 BPM Atrial Rate : 105 BPM P-R Int : 132 ms QRS Dur : 078 ms QT Int : 390 ms P-R-T Axes : 048 063 074 degrees QTc Int : 515 ms Sinus tachycardia Otherwise normal ECG When compared with ECG of 24-DEC-2019 16:42, MANUAL COMPARISON REQUIRED, DATA IS UNCONFIRMED Confirmed by CARINA JOHNSON, ISAI ([id number]), videotape editor CHARLY JIMÉNEZ ([id number]) on 01/03/2020 11:43:21 AM Referred By: Marely Avitia Confirmed By:NISHA LIM MD
[2019-12-26 15:07] LABS: Pathologist Comment/Body Fluid Reviewed
[2019-12-26] MEDS: Ensure Clear 120 ML Liquid PO (18:22)
[2019-12-27] VITALS (16 sets, daily range): BP systolic 87–103; BP diastolic 53–66; PULSE 102–128; RESP 14–18; TEMP 36.7–37.3; O2SAT 90–100
[2019-12-27 05:28] LABS: Absolute Lymphocyte Count 1.99 X10^3/uL (0.83-4.51); Absolute Neutrophil Count 6.8 X10^3/uL (2.0-7.7); Basophil# 0.02 X10^3/uL; Basophil% 0.2 % (0-1); Eosinophil# 0.01 X10^3/uL; Eosinophils% 0.1 % (0-5); Hematocrit 26.4 % (37-47); Hemoglobin 9.3 g/dL (12.0-15.0); Lymphocyte # 1.99 X10^3/ul (4.0); Lymphocyte % 21.1 % (19-41); Mean Corp Hgb Conc 35.2 g/dL (32-36); Mean Corpuscular Hgb 37.1 pg (27.0-32.0); Mean Corpuscular Volume 105.2 fL (81-99); Mean Platelet Vol. 11.2 fl (6.2-12.0); Monocyte# 0.51 X10^3/uL; Monocyte% 5.4 % (0-10); NRBC Flagged by Analyzer 0 % (0-5); Neutrophil # 6.83 X10^3/uL (2.7-7.7); Neutrophil % 72.2 % (47-70); POSITIVE COUNT YES; Platelet Count 87 K/mm3 (150-450); RBC Distribution Width CV 16.3 % (11.6-14.6); RBC Distribution Width SD 61.7 fl (35.1-43.9); Red Blood Count 2.51 M/mm3 (4.2-5.4); White Blood Count 9.5 K/mm3 (4.4-11.0)
[2019-12-27 05:45] LABS: ALB/GLOB Ratio 0.6 RATIO (0.9-2.4); AST(SGOT) 121 U/L (15-37); Alanine Aminotransfer ALT/SGPT 42 U/L (13-56); Alkaline Phosphatase 296 U/L (45-117); Anion Gap 6 (5-15); BUN 2 mg/dL (7-18); BUN/Creat Ratio 8.1 RATIO (10-20); Calcium,Total 7.6 mg/dL (8.5-10.1); Chloride 98 mmol/L (98-107); Creatinine, Serum 0.25 mg/dL (0.55-1.02); EST Glomerular Filtration Rate 312 mL/min (>60); Est Glom Filt Rate - Afr Amer 378 mL/min (>60); Estimated Creatinine Clearance 209.95 ml/min; Globulin 3.2 g/dL (2.2-4.2); Glucose 76 mg/dL (74-106); Magnesium 2.3 mg/dL (1.6-2.6); Potassium 3.2 mmol/L (3.5-5.1); Protein, Total 5.2 g/dL (6.4-8.2); Sodium Level 132 mmol/L (136-145)
[2019-12-27] MEDS: Ipratropium/Albuterol Sulfate 3 ML AMPUL.NEB INHALATION ×4 (07:28→19:06)
[2019-12-27 08:19] LABS: Phosphorus 2.6 mg/dL (2.5-4.9)
[2019-12-27] MEDS: Folic Acid 1 MG Tablet PO (09:44)
[2019-12-27] MEDS: Ensure Clear 120 ML Liquid PO ×2 (09:44→15:21)
[2019-12-27] MEDS: Thiamine Hydrochloride 100 MG Tablet PO (09:44)
[2019-12-27] MEDS: Aspirin E.C. 81 MG Tablet PO (09:44)
--- NOTE | 2019-12-27 10:34 | PN_ITS ---
Patient Problems: Active and Suspected Problems (Last Updated 08/23/18 @ 10:23 by Gwen Parson) Debility (Acute) Hyponatremia (Acute) Elevated liver enzymes (Acute) Subjective: Patient seen and examined. She actually feels better today. States she has been able to get out of bed on ambulate. Is also able to eat tolerate a diet. She denies any nausea, vomiting, fever or chills. Blood pressure was running low yesterday so she was given a bolus of normal saline 500 cc. Blood pressures 94/50 this morning but she is asymptomatic. Sodium is up to 132 and potassium is 3.2. Bilirubin is also trended down to 3.8. Vitals/I&O's: Vital Signs Temp Pulse Resp BP Pulse Ox 98.1 F 104 H 14 94/58 L 100 12/27/19 09:41 12/27/19 09:45 12/27/19 09:41 12/27/19 09:45 12/27/19 09:41 Oxygen Delivery Method [3] Room Air Oxygen Delivery Method [2] Room Air Oxygen Delivery Method [1 ( Room Air Initial Baseline)] Oxygen Delivery Method Room Air Weight: 108 lb 14.534 oz Body Mass Index (BMI) 20.2 Finger Stick Blood Glucose 47 Intake and Output for Last 24 Hours 12/25/19 12/26/19 12/27/19 23:59 23:59 23:59 Intake Total 3747.8333 / 3747.8333 2967.5033 / 2967.5033 50 / 50 Output Total 4670 / 6670 4500 / 4500 100 / 100 Balance -922.1667 / -2922.1667 -1532.4967 / -1532.4967 -50 / -50 General: Alert, Oriented x3, Cooperative, Lethargic, - - frail, looks much older than stated age HEENT: Atraumatic, PERRLA, EOMI, Normocephalic, - - jaundiced sclera Oral: Dry Mucosa Neck: Supple, No JVD, Negative Carotid Bruits Lungs: Clear to auscultation, Normal air movement, No rhonchi, No wheeze Cardiovascular: Regular Rhythm, Normal S1, Normal S2, No murmurs, Tachycardic Abdomen: Bowel Sounds Present, Soft, Non Tender, abdominal distension has reduced, minimal ascites. Extremities: No cyanosis Skin: - - Has petechia on upper extremities. Musculoskeletal: No Tenderness to Palpation of Joints or Extremities Lymphatic: No Cervical, Supraclavicular, or Inguinal Adenopathy Neurological: Cranial nerves II-XII grossly intact, Neuro grossly intact, Motor Exam 5/5 strength throughout Psych/Mental Status: Normal Affect, Appropriate, Alert and oriented to time, place, person, mood and affect Microbiology Past 72 Hours 12/25/19 12:30 Fluid - Ascites Gram Stain - Final 12/25/19 12:30 Fluid - Ascites Body Fluid Culture - Preliminary No growth-Final to follow 12/24/19 16:25 Urine, Catheterized Urine Culture - Final Presumptive E. coli Laboratory Results 12/24/19 16:15: B-Natriuretic Peptide 15.0 12/25/19 12:30: Fl Pathologist Comment Reviewed 12/26/19 12:15: Magnesium 2.8 H 12/26/19 12:15: Troponin I < 0.015 12/26/19 14:43: Troponin I < 0.015 12/26/19 18:06: Troponin I < 0.015 12/27/19 05:14: WBC 9.5, RBC 2.51 L, Hgb 9.3 L, Hct 26.4 L, MCV 105.2 H, MCH 37.1 H, MCHC 35.2, RDW Std Deviation 61.7 H, RDW Coeff of Vickie 16.3 H, Plt Count 87 L, MPV 11.2, Immature Gran % (Auto) 1.000 H, Neut % (Auto) 72.2 H, Lymph % (Auto) 21.1, [place] % (Auto) 5.4, Eos % (Auto) 0.1, Baso % (Auto) 0.2, Absolute Neuts (auto) 6.8, Absolute Lymphs (auto) 1.99, Nucleated RBC % 0 12/27/19 05:14: Sodium 132 L, Potassium 3.2 L, Chloride 98, Carbon Dioxide 28.0, Anion Gap 6, BUN 2 L, Creatinine 0.25 L, Estim Creat Clear Calc 209.95, Est GFR (MDRD) Af Amer 378, Est GFR (MDRD) Non-Af 312, BUN/Creatinine Ratio 8.1 L, Glucose 76, Calcium 7.6 L, Magnesium 2.3, Total Bilirubin 3.80 H, AST 121 H, ALT 42, Alkaline Phosphatase 296 H, Total Protein 5.2 L, Albumin 2.0 L, Globulin 3.2, Albumin/Globulin Ratio 0.6 L 12/27/19 05:14: Phosphorus 2.6 Diagnostic Data Abdomen/Pelvis CT 12/24/19 16:23 IMPRESSION: Small bilateral pleural effusions with overlying atelectasis. 6 mm nodule in the right middle lobe. Bowel wall thickening in the ascending colon which is consistent with colitis. Diffuse fatty infiltration of the liver. Large amount of ascites. Normal kidneys. No hydronephrosis. Distended gallbladder. No calcified gallstones. Atherosclerosis and coronary artery disease. Electronically Signed: Bennett Everett at 17:28 EDT Tel , Service support , Chest X-Ray 12/24/19 16:54 IMPRESSION: No acute thoracic pathology. Electronically Signed: Bennett Everett at 17:31 EDT Tel , Service support , Liver Ultrasound 12/24/19 20:45 IMPRESSION: Fatty infiltration of the liver. There is biliary sludge dependent within the gallbladder. Small ascites. Electronically Signed: Farhan Acuña at 9:08 EDT Tel , Service support , Paracentesis Ultrasound 12/24/19 20:45 IMPRESSION: Successful ultrasound-guided paracentesis. Electronically Signed: Farhan Acuña at 13:28 EDT Tel , Service support , Transvaginal US 12/26/19 08:01 IMPRESSION: Status post hysterectomy. Normal right ovary. Nonvisualization left ovary. Moderate amount of ascites. Electronically Signed: Noe Wnog MD at 11:09 EDT Tel , Service support , Current Medications Albuterol/Ipratropium (Duoneb) 3 ml INHALATION Q4HWA.RT [facility] Last Admin: 12/27/19 07:28 Dose: 3 ml Documented by: Aspirin (Ecotrin) 81 mg PO DAILYCM [facility] Last Admin: 12/27/19 09:44 Dose: 81 mg Documented by: Bisacodyl (Dulcolax) 10 mg RECTAL DAILY PRN PRN Reason: Constipation Dextrose (D50w Syringe) 0 gm IV X1 PRN; Protocol PRN Reason: Hypoglycemia Dicyclomine HCl (Bentyl) 20 mg PO Q6H PRN PRN PRN Reason: abdominal discomfort Folic Acid (Folic Acid) 1 mg PO DAILY@0800 [facility] Last Admin: 12/27/19 09:44 Dose: 1 mg Documented by: Gabapentin (Neurontin) 300 mg PO Q8H PRN PRN PRN Reason: moderate to severe anxiety Glucagon () 1 mg IM .X1 PRN PRN Reason: Hypoglycemia Hydroxyzine Pamoate (Vistaril Pamoate Capsule) 50 mg PO Q4H PRN PRN PRN Reason: mild anxiety Sodium Chloride () 1,000 mls @ 0 mls/hr IV .Q0M CRISTIAN Sodium Chloride () 250 mls @ 15 mls/hr IV .[id number] PRN PRN Reason: Saline Flush Last Infusion: 12/25/19 09:30 Dose: 0 mls/hr Documented by: Sodium Chloride () 250 mls @ 15 mls/hr IV .[id number] PRN PRN Reason: Additional IVPB Infusion Ceftriaxone Sodium 2 gm/ (Sodium Chloride) 50 mls @ 100 mls/hr IV Q24 [facility] Last Infusion: 12/27/19 10:21 Dose: Infused Documented by: Loperamide HCl (Imodium) 2 mg PO Q4H PRN PRN PRN Reason: LOOSE STOOLS Metoprolol Succinate (Toprol Xl (Beta Tomy)) 25 mg PO DAILY [facility] Last Admin: 12/27/19 09:45 Dose: Not Given Documented by: Nicotine (Nicoderm Cq (Pbkc)) 21 mg TRANSDERM. DAILY [facility] Last Admin: 12/27/19 09:43 Dose: Not Given Documented by: Nitroglycerin (Nitrostat) 0.4 mg SUBLINGUAL Q5M PRN PRN Reason: CARDIAC/CHEST PAIN Nutritional Formula (Lactose Free) (Ensure Clear) 120 ml PO 4X/DAY [facility] Last Admin: 12/27/19 09:44 Dose: 120 ml Documented by: Ondansetron HCl (Zofran) 4 mg IV Q8H PRN PRN PRN Reason: NAUSEA/VOMITING Sodium Chloride () 10 - 40 ml IV UD PRN PRN Reason: SALINE FLUSH Last Admin: 12/26/19 08:40 Dose: 10 ml Documented by: Thiamine HCl (Vitamin B1) 100 mg PO DAILYCM [facility] Last Admin: 12/27/19 09:44 Dose: 100 mg Documented by: Trazodone HCl (Desyrel) 100 mg PO QHS PRN PRN Reason: INSOMNIA STROKE Vital Signs/Narrative: Vital Signs Temp Pulse Resp BP Pulse Ox 12/27/19 09:45 104 H 94/58 L 12/27/19 09:41 98.1 F 104 H 14 94/58 L 100 12/27/19 07:28 102 H 18 90 12/27/19 07:00 103 H Medical Necessity - Tobacco Use Smoking Status: Current every day smoker Tobacco Use: Cigarettes Assessment/Plan All Active Problems (Last Updated 08/23/18 @ 10:23 by Gwen Parson) Debility (Acute) Hyponatremia (Acute) Elevated liver enzymes (Acute) # acute Hyponatremia * sodium now up to 132 * lasix on hold o./a of hypotension * nephrology on board * #Hypokalemia/ hypomagnesemia and hypophosphatemia * Potassium is 3.2 * will replace and monitor * #recurrent hypoglycemia * Resolved. Patient now eating well. # Transaminitis and ascites * bilirubin has trended down to 3.8 today from 4.7 yesterday * Liver ultrasound showed fatty infiltration of the liver with biliary sludge dependently within the gallbladder and small ascites. * This is likely due to alcoholic liver disease as patient has a history of chronic alcohol abuse. * Will trend liver enzymes. * hepatitis screen negative. * ascitic fluid albumin still pending * Elevated CEA antigen * CEA antigen was 8.7. * Pelvic USG showed normal right ovary and nonvisualisation of left ovary, with moderate amount of ascites. * the elevated CEA can also be due to patient;s liver disease * she is at the age for routine colonoscopy screening, but hasnt had that. 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 UTI: UA showed 4+ bacteria adn nitrites. On IV ceftriaone. Urine cutlured E coli resistant to ciprofloxacin. Now on IV ceftriaxone. #Hypocalcemia: Calcium is 7.6 today. will monitor # Severe protein calorie malnutrition * Albumin is only 2. Nutrition on board. # Thrombocytopenia * Likely due to chronic liver disease. * Has petechiae on her extremities. Platelets are 87 today * No use of heparin. Will trend platelets. # Chronic alcohol abuse * admits to a chronic history of alcohol abuse. Will monitor for alcohol withdrawal and start alcohol withdrawal protocol as needed. * # Cad s/p stent: on aspirin and statin. #ascending colon thickening: * Suspicious for colitis. Patient however had no diarrhea. * was on IV ciprofloxacin and metronidazole, but this was switched to IV ceftriaxone due to UTI * DVT prophylaxis; [facility] Inpatient E&M: 32138 Subs Hosp L3
--- NOTE | 2019-12-27 11:33 | PCM.PN.REN ---
Patient Problems: Active and Suspected Problems (Last Updated 08/23/18 @ 10:23 by Gwen Parson) Debility (Acute) Hyponatremia (Acute) Elevated liver enzymes (Acute) Subjective: no new events - Physical Exam Vitals/I&O's: Vital Signs Temp Pulse Resp BP Pulse Ox 98.1 F 104 H 14 94/58 L 100 12/27/19 09:41 12/27/19 09:45 12/27/19 09:41 12/27/19 09:45 12/27/19 09:41 Oxygen Delivery Method [3] Room Air Oxygen Delivery Method [2] Room Air Oxygen Delivery Method [1 ( Room Air Initial Baseline)] Oxygen Delivery Method Room Air Weight: 49.4 kg Body Mass Index (BMI) 20.2 Finger Stick Blood Glucose 47 Intake and Output for Last 24 Hours 12/25/19 12/26/19 12/27/19 23:59 23:59 23:59 Intake Total 3747.8333 / 3747.8333 2967.5033 / 2967.5033 50 / 50 Output Total 4670 / 6670 4500 / 4500 100 / 100 Balance -922.1667 / -2922.1667 -1532.4967 / -1532.4967 -50 / -50 General: Alert, Oriented x3, Cooperative HEENT: Atraumatic, PERRLA, EOMI, Normocephalic Neck: Supple, No JVD, Negative Carotid Bruits Lungs: Clear to auscultation, Normal air movement Cardiovascular: Regular rate, No murmurs Abdomen: Bowel Sounds Present, Soft, Non Tender Extremities: No edema, Capillary Refill Less than 3 Seconds Skin: No rashes, No breakdown Musculoskeletal: No Tenderness to Palpation of Joints or Extremities Neurological: Cranial nerves II-XII grossly intact Psych/Mental Status: Normal Affect, Appropriate Microbiology Past 72 Hours 12/25/19 12:30 Fluid - Ascites Gram Stain - Final 12/25/19 12:30 Fluid - Ascites Body Fluid Culture - Preliminary No growth-Final to follow 12/24/19 16:25 Urine, Catheterized Urine Culture - Final Presumptive E. coli Laboratory Results 12/24/19 16:15: B-Natriuretic Peptide 15.0 12/25/19 12:30: Fl Pathologist Comment Reviewed 12/26/19 12:15: Magnesium 2.8 H 12/26/19 12:15: Troponin I < 0.015 12/26/19 14:43: Troponin I < 0.015 12/26/19 18:06: Troponin I < 0.015 12/27/19 05:14: WBC 9.5, RBC 2.51 L, Hgb 9.3 L, Hct 26.4 L, MCV 105.2 H, MCH 37.1 H, MCHC 35.2, RDW Std Deviation 61.7 H, RDW Coeff of Vickie 16.3 H, Plt Count 87 L, MPV 11.2, Immature Gran % (Auto) 1.000 H, Neut % (Auto) 72.2 H, Lymph % (Auto) 21.1, [place] % (Auto) 5.4, Eos % (Auto) 0.1, Baso % (Auto) 0.2, Absolute Neuts (auto) 6.8, Absolute Lymphs (auto) 1.99, Nucleated RBC % 0 12/27/19 05:14: Sodium 132 L, Potassium 3.2 L, Chloride 98, Carbon Dioxide 28.0, Anion Gap 6, BUN 2 L, Creatinine 0.25 L, Estim Creat Clear Calc 209.95, Est GFR (MDRD) Af Amer 378, Est GFR (MDRD) Non-Af 312, BUN/Creatinine Ratio 8.1 L, Glucose 76, Calcium 7.6 L, Magnesium 2.3, Total Bilirubin 3.80 H, AST 121 H, ALT 42, Alkaline Phosphatase 296 H, Total Protein 5.2 L, Albumin 2.0 L, Globulin 3.2, Albumin/Globulin Ratio 0.6 L 12/27/19 05:14: Phosphorus 2.6 Current Medications Albuterol/Ipratropium (Duoneb) 3 ml INHALATION Q4HWA.RT [facility] Last Admin: 12/27/19 10:59 Dose: 3 ml Documented by: Aspirin (Ecotrin) 81 mg PO DAILYCM [facility] Last Admin: 12/27/19 09:44 Dose: 81 mg Documented by: Bisacodyl (Dulcolax) 10 mg RECTAL DAILY PRN PRN Reason: Constipation Dextrose (D50w Syringe) 0 gm IV X1 PRN; Protocol PRN Reason: Hypoglycemia Dicyclomine HCl (Bentyl) 20 mg PO Q6H PRN PRN PRN Reason: abdominal discomfort Folic Acid (Folic Acid) 1 mg PO DAILY@0800 [facility] Last Admin: 12/27/19 09:44 Dose: 1 mg Documented by: Gabapentin (Neurontin) 300 mg PO Q8H PRN PRN PRN Reason: moderate to severe anxiety Glucagon () 1 mg IM .X1 PRN PRN Reason: Hypoglycemia Hydroxyzine Pamoate (Vistaril Pamoate Capsule) 50 mg PO Q4H PRN PRN PRN Reason: mild anxiety Sodium Chloride () 250 mls @ 15 mls/hr IV .[id number] PRN PRN Reason: Saline Flush Last Infusion: 12/25/19 09:30 Dose: 0 mls/hr Documented by: Sodium Chloride () 250 mls @ 15 mls/hr IV .[id number] PRN PRN Reason: Additional IVPB Infusion Ceftriaxone Sodium 2 gm/ (Sodium Chloride) 50 mls @ 100 mls/hr IV Q24 [facility] Last Infusion: 12/27/19 10:21 Dose: Infused Documented by: Potassium Chloride () 10 meq in 100 mls @ 100 mls/hr IV BOLUS Q1H [facility] Stop: 12/27/19 15:29 Loperamide HCl (Imodium) 2 mg PO Q4H PRN PRN PRN Reason: LOOSE STOOLS Metoprolol Succinate (Toprol Xl (Beta Tomy)) 25 mg PO DAILY [facility] Last Admin: 12/27/19 09:45 Dose: Not Given Documented by: Nicotine (Nicoderm Cq (Pbkc)) 21 mg TRANSDERM. DAILY [facility] Last Admin: 12/27/19 09:43 Dose: Not Given Documented by: Nitroglycerin (Nitrostat) 0.4 mg SUBLINGUAL Q5M PRN PRN Reason: CARDIAC/CHEST PAIN Nutritional Formula (Lactose Free) (Ensure Clear) 120 ml PO 4X/DAY [facility] Last Admin: 12/27/19 09:44 Dose: 120 ml Documented by: Ondansetron HCl (Zofran) 4 mg IV Q8H PRN PRN PRN Reason: NAUSEA/VOMITING Sodium Chloride () 10 - 40 ml IV UD PRN PRN Reason: SALINE FLUSH Last Admin: 12/26/19 08:40 Dose: 10 ml Documented by: Thiamine HCl (Vitamin B1) 100 mg PO DAILYCM [facility] Last Admin: 12/27/19 09:44 Dose: 100 mg Documented by: Trazodone HCl (Desyrel) 100 mg PO QHS PRN PRN Reason: INSOMNIA Medical Necessity - Tobacco Use Smoking Status: Current every day smoker Tobacco Use: Cigarettes Assessment/Plan All Active Problems (Last Updated 08/23/18 @ 10:23 by Gwen Parson) Debility (Acute) Hyponatremia (Acute) Elevated liver enzymes (Acute) hyponatremia. Clinically hypervolemic. Has a new diagnosis of fatty liver likely related to alcohol. Apparently he has poor appetite for the last few weeks. Looks pretty emaciated. Urine sodium is low, urine osmolality is high. All the labs are consistent with hypervolemic hyponatremia from liver disease. She did well to IV Lasix. sodium is now upto 132. hypokalemia hypomagnesemia hypophosphatemia better this am dw Dr Anthony will follow thank you
[2019-12-27] MEDS: Potassium Chloride 10mEq/100mL 10 MEQ/100 ML IV.SOLN. 100 MEQ IV BOLUS ×4 (15:10→18:59)
[2019-12-27] MEDS: 0.9% Normal Saline 1,000 ML 999 ML IV (15:42)
[2019-12-27] MEDS: Tamsulosin HCl 0.4 MG Capsule PO (16:19)
[2019-12-28] VITALS (7 sets, daily range): BP systolic 102–108; BP diastolic 66–76; PULSE 99–116; RESP 16–20; TEMP 36.7–36.8; O2SAT 95–97
[2019-12-28 06:02] LABS: Absolute Lymphocyte Count 1.96 X10^3/uL (0.83-4.51); Absolute Neutrophil Count 4.4 X10^3/uL (2.0-7.7); Basophil# 0.04 X10^3/uL; Basophil% 0.5 % (0-1); Eosinophil# 0.53 X10^3/uL; Eosinophils% 6.8 % (0-5); Hematocrit 25.5 % (37-47); Lymphocyte # 1.96 X10^3/ul (4.0); Lymphocyte % 25.3 % (19-41); Mean Corp Hgb Conc 35.3 g/dL (32-36); Mean Corpuscular Hgb 37.3 pg (27.0-32.0); Mean Corpuscular Volume 105.8 fL (81-99); Mean Platelet Vol. 10.9 fl (6.2-12.0); Monocyte# 0.72 X10^3/uL; Monocyte% 9.3 % (0-10); NRBC Flagged by Analyzer 0.3 % (0-5); Neutrophil % 56.9 % (47-70); POSITIVE COUNT YES; Platelet Count 71 K/mm3 (150-450); RBC Distribution Width SD 64.9 fl (35.1-43.9); Red Blood Count 2.41 M/mm3 (4.2-5.4); White Blood Count 7.7 K/mm3 (4.4-11.0)
[2019-12-28 06:38] LABS: ALB/GLOB Ratio 0.6 RATIO (0.9-2.4); AST(SGOT) 85 U/L (15-37); Alanine Aminotransfer ALT/SGPT 36 U/L (13-56); Albumin, Serum 1.9 g/dL (3.2-5.0); Alkaline Phosphatase 275 U/L (45-117); Anion Gap 6 (5-15); BUN 4 mg/dL (7-18); BUN/Creat Ratio 17.4 RATIO (10-20); Calcium,Total 7.7 mg/dL (8.5-10.1); Chloride 99 mmol/L (98-107); Creatinine, Serum 0.23 mg/dL (0.55-1.02); EST Glomerular Filtration Rate 339 mL/min (>60); Est Glom Filt Rate - Afr Amer 410 mL/min (>60); Estimated Creatinine Clearance 230.05 ml/min; Globulin 3.2 g/dL (2.2-4.2); Glucose 80 mg/dL (74-106); Potassium 3.3 mmol/L (3.5-5.1); Protein, Total 5.1 g/dL (6.4-8.2); Sodium Level 132 mmol/L (136-145)
[2019-12-28] MEDS: Ipratropium/Albuterol Sulfate 3 ML AMPUL.NEB INHALATION ×2 (06:56→11:04)
[2019-12-28] MEDS: Folic Acid 1 MG Tablet PO (09:39)
[2019-12-28] MEDS: Thiamine Hydrochloride 100 MG Tablet PO (09:39)
[2019-12-28] MEDS: Aspirin E.C. 81 MG Tablet PO (09:39)
[2019-12-28] MEDS: Ensure Clear 120 ML Liquid PO (09:52)
[2019-12-28] MEDS: 0.9% Saline Lock 10 ML Syringe IV (09:52)
--- NOTE | 2019-12-28 10:33 | DCINST_ITS ---
- Discharge Diagnoses Current Active Problems: Current Active and Chronic Problems (Last Updated 08/23/18 @ 10:23 by Gwen Parson) Debility (Acute) Hyponatremia (Acute) Elevated liver enzymes (Acute) You will use the following diet at home:: Cardiac Your food should be the consistency of: Regular Your liquids should be the consistency of: Regular/Thin Discharge Activity: Return to Normal Activity Weight Bearing Status: Weight bearing as tolerated Call your doctor if you observe: Fever of 101 or Higher, Shortness of breath, Dizziness, Fainting spells, Swelling in the ankles, Chest pain, Increased palpitations (irregular heartbeat) Instructions: ED Hyponatremia, Paracentesis, ED Ascites Allergies/Adverse Reactions: Allergies No Known Allergies Allergy (Verified 08/23/18 10:19) Medications to take at Discharge aspirin 81 mg tablet,delayed release 81 mg PO DAILY 08/23/18 cholecalciferol (vitamin D3) 25 mcg (1,000 unit) capsule 1,000 unit PO DAILY 08/23/18 nitroglycerin 0.4 mg sublingual tablet 0.4 mg SUBLINGUAL Q5-15M PRN 08/23/18 Albuterol Sulfate [Albuterol Sulfate HFA] 2 inhaler PO BID 12/24/19 Hydroxyzine HCl 25 mg PO Q6H PRN PRN 12/24/19 Metoprolol Succinate 25 mg PO DAILY 12/24/19 Cefdinir [Omnicef [equiv]] 300 mg PO Q12H #10 cap 12/28/19 Furosemide [Lasix] 20 mg PO DAILY #30 tab 12/28/19 Metoprolol(XL)Succ [Toprol Xl (Beta Tomy)] 12.5 mg PO DAILY #30 tab 12/28/19 Potassium Chloride [K-Dur] 20 meq PO DAILY #20 tab 12/28/19 The following prescriptions were given: Potassium Chloride [K-Dur] 20 meq PO DAILY #20 tab Transmission Status: Pending to [facility]/pharmacy #[id number] Furosemide [Lasix] 20 mg PO DAILY #30 tab Transmission Status: Pending to [facility]/pharmacy #[id number] Cefdinir [Omnicef [equiv]] 300 mg PO Q12H #10 cap Transmission Status: Pending to [facility]/pharmacy #[id number] Metoprolol(XL)Succ [Toprol Xl (Beta Tomy)] 12.5 mg PO DAILY #30 tab Transmission Status: Pending to [facility]/pharmacy #[id number] Primary Care Physician: Zabrina Rdz [employer], [employer] [Primary Care Provider] - Please follow up with your Primary Care Physician in: 1-2 weeks Test Results: Test results from this visit will be discussed in further detail at your follow- up appointment, if applicable. Please Follow Up With: Kirill Le MD When: 1-2 weeks for management of liver disease Proposed Discharge Date: 12/28/19
--- NOTE | 2019-12-28 10:41 | DS.PCM_ITS ---
Discharge Date and Diagnosis Date of Admission: 12/24/19 Date of Discharge: 12/28/19 - Primary Discharge Diagnosis Acute Problems: Active Problems (Last Updated 08/23/18 @ 10:23 by Gwen Parson) Debility (Acute) Hyponatremia (Acute) Elevated liver enzymes (Acute) ascites - Secondary Discharge Diagnosis Chronic Problems: Chronic Problems (Last Updated 08/23/18 @ 10:23 by Gwen Parson) Coronary artery disease involving [place] heart (Chronic) Afib (Chronic) HLD (hyperlipidemia) (Chronic) Hospital Course and Treatment Imaging Results: Diagnostic Data Abdomen/Pelvis CT 12/24/19 16:23 IMPRESSION: Small bilateral pleural effusions with overlying atelectasis. 6 mm nodule in the right middle lobe. Bowel wall thickening in the ascending colon which is consistent with colitis. Diffuse fatty infiltration of the liver. Large amount of ascites. Normal kidneys. No hydronephrosis. Distended gallbladder. No calcified gallstones. Atherosclerosis and coronary artery disease. Electronically Signed: Bennett Everett, at 17:28 EDT Tel , Service support , Chest X-Ray 12/24/19 16:54 IMPRESSION: No acute thoracic pathology. Electronically Signed: Bennett Everett, at 17:31 EDT Tel , Service support , Liver Ultrasound 12/24/19 20:45 IMPRESSION: Fatty infiltration of the liver. There is biliary sludge dependent within the gallbladder. Small ascites. Electronically Signed: Farhan Acuña, at 9:08 EDT Tel , Service support , Paracentesis Ultrasound 12/24/19 20:45 IMPRESSION: Successful ultrasound-guided paracentesis. Electronically Signed: Farhan Acuña, at 13:28 EDT Tel , Service support , Transvaginal US 12/26/19 08:01 IMPRESSION: Status post hysterectomy. Normal right ovary. Nonvisualization left ovary. Moderate amount of ascites. Electronically Signed: Noe Wong MD at 11:09 EDT Tel , Service support , nephrology- Dr Edwards Operations: None Procedures: 2-D Echocardiogram, Paracardiocentesis Summary of Care Provided: The patient is a 49 year old F who was admitted through the ED on 12/24/2019 with a complaint of generalized feeling of unwellness for several months. She has been progressively getting weak and was unable to ambulate. She had a past medical history which included CAD status post stents, paroxysmal atrial fibrillation and hyperlipidemia.. When the EMS found patient, she was noted to have pedal edema with abdominal distention and was also jaundiced. Blood sugar was 48 and patient admitted to not eating well in the days prior to admission. Patient had also been drinking and had a history of chronic alcohol abuse,though she said she had cut her alcohol consumption down to 1 beer daily. Labs showed severe acute hyponatremia, with sodium of 118, elevated liver enzymes and bilirubin. CT of the abdomen and pelvis showed small bilateral pleural effusions with overlying atelectasis, and 6mm nodule in the right middle lobe, as well as bowel wall thickening in the ascending colon consistent with colitis, diffuse fatty infiltration of the liver and large amount of ascites. She was admitted and managed for acute hyponatremia, colitis and ascites thought to be due to fluid overload and hypervolemia. She was started on IV Lasix. Serum osmolality checked was low and urine osmolality was also low suggestive of fluid overload. BNP done was only 15. Hypoglycemia resolved after patient started eating. Liver enzymes trended down. Patient was also noted to have severe hypoalbuminemia which was also indicates of chronic malnutrition. She had paracentesis with removal of 2.2 L during admission. Patient was initially started on IV prophylaxis and Flagyl on account of colitis per CT of the abdomen though she did not have any diarrhea. CEA antigen checked was elevated. Pathology of ascitic fluid was negative for any malignancy. Patient did well with diuresis and paracentesis. Physical therapy also worked with patient and she did well. Hyponatremia improved and resolved with diuresis and paracentesis. Nephrology was consulted. Transvaginal ultrasound done did not show any evidence of ovarian malignancy. Liver ultrasound done showed fatty infiltration of the liver with biliary sludge within the gallbladder and small ascites. Of note, urine cultured E. coli which was sensitive to ciprofloxacin. Ciprofloxacin and metronidazole were therefore discontinued and patient started on ceftriaxone. Patient was also noted to have thrombocytopenia which was also thought to be due to her liver disease. Patient refused to consider discahrge to a rehab facillity and preferred to go home. Patient improved and was discharged home on 12/28/2019 with a script for lasix and oral potassium. She is to follow up iwth her PCP in 1-2 week and was also referred to gastroenterology as it was time for her to have routine colonoscopy screening and for management of her liver disease. Patient was also counseled to quit drinking. Patient seen and examined prior to discharge. She felt much better and had no complaints. She had a better appetite, and had been able to ambulate around her room. Review of systems was otherwise negative. Labs and vitals reviewed. Home medications reviewed and reconciled. Of note, her metoprolol was decreased from 25mg daily to 12.5mg daily o/a of her BP running low. O/E: Vital Signs Temp Pulse Resp BP Pulse Ox 98.2 F 116 H 20 H 102/76 97 12/28/19 08:04 12/28/19 11:04 12/28/19 11:04 12/28/19 08:04 12/28/19 08:10 [] General: Alert, Oriented x3, Cooperative, Lethargic, - - frail, looks much older than stated age HEENT: Atraumatic, PERRLA, EOMI, Normocephalic, - - jaundiced sclera Oral: Dry Mucosa Neck: Supple, No JVD, Negative Carotid Bruits Lungs: Clear to auscultation, Normal air movement, No rhonchi, No wheeze Cardiovascular: Regular Rhythm, Normal S1, Normal S2, No murmurs, Tachycardic Abdomen: Bowel Sounds Present, Soft, Non Tender, abdominal distension has reduced, minimal ascites. Extremities: No cyanosis Skin: - - Has petechia on upper extremities. Musculoskeletal: No Tenderness to Palpation of Joints or Extremities Lymphatic: No Cervical, Supraclavicular, or Inguinal Adenopathy Neurological: Cranial nerves II-XII grossly intact, Neuro grossly intact, Motor Exam 5/5 strength throughout Psych/Mental Status: Normal Affect, Appropriate, Alert and oriented to time, place, person, mood and affect Plan is for dc home with outpatient therapy today. She was also discharged home on PO cefdinir 300mg bid x 5 days for UTI. Of note, patient's CT of the abdomen and pelvis picked up a 6mm right middle lobe lung nodule. Patient will therefore need follow up on outpatient basis as determined by PCP for follow up low dose CT of the chest to follow up on the 6mm lung nodule to determine change in size and any referral for further workup as needed. - Physical Exam Vitals/I&O's: Vital Signs Temp Pulse Resp BP Pulse Ox 98.2 F 113 H 18 102/76 97 12/28/19 08:04 12/28/19 08:04 12/28/19 08:04 12/28/19 08:04 12/28/19 08:10 Oxygen Delivery Method [3] Room Air Oxygen Delivery Method [2] Room Air Oxygen Delivery Method [1 ( Room Air Initial Baseline)] Oxygen Delivery Method Room Air Weight: 109 lb 12.643 oz Body Mass Index (BMI) 20.2 Finger Stick Blood Glucose 47 Intake and Output for Last 24 Hours 12/26/19 12/27/19 12/28/19 23:59 23:59 23:59 Intake Total 2967.5033 / 2967.5033 1700 / 1700 50 / 50 Output Total 4500 / 4500 225 / 225 50 / 50 Balance -1532.4967 / -1532.4967 1475 / 1475 0 / 0 Microbiology Past 72 Hours 12/25/19 12:30 Fluid - Ascites Gram Stain - Final 12/25/19 12:30 Fluid - Ascites Body Fluid Culture - Preliminary No growth-Final to follow 12/25/19 12:30 Fluid - Ascites Anaerobic Culture - Preliminary No growth in 48 hours. 12/24/19 16:25 Urine, Catheterized Urine Culture - Final Presumptive E. coli Laboratory Results 12/25/19 12:30: Miscellaneous Test 12/28/19 05:48: WBC 7.7, RBC 2.41 L, Hgb 9.0 L, Hct 25.5 L, MCV 105.8 H, MCH 37.3 H, MCHC 35.3, RDW Std Deviation 64.9 H, RDW Coeff of Vickie 17.0 H, Plt Count 71 L, MPV 10.9, Immature Gran % (Auto) 1.200 H, Neut % (Auto) 56.9, Lymph % (Auto) 25.3, [place] % (Auto) 9.3, Eos % (Auto) 6.8 H, Baso % (Auto) 0.5, Absolute Neuts (auto) 4.4, Absolute Lymphs (auto) 1.96, Nucleated RBC % 0.3 12/28/19 05:48: Sodium 132 L, Potassium 3.3 L, Chloride 99, Carbon Dioxide 27.0, Anion Gap 6, BUN 4 L, Creatinine 0.23 L, Estim Creat Clear Calc 230.05, Est GFR (MDRD) Af Amer 410, Est GFR (MDRD) Non-Af 339, BUN/Creatinine Ratio 17.4, Glucose 80, Calcium 7.7 L, Magnesium 2.0, Total Bilirubin 3.00 H, AST 85 H, ALT 36, Alkaline Phosphatase 275 H, Total Protein 5.1 L, Albumin 1.9 L, Globulin 3.2, Albumin/Globulin Ratio 0.6 L Current Medications Albuterol/Ipratropium (Duoneb) 3 ml INHALATION Q4HWA.RT [facility] Last Admin: 12/28/19 06:56 Dose: 3 ml Documented by: Aspirin (Ecotrin) 81 mg PO DAILYCM [facility] Last Admin: 12/28/19 09:39 Dose: 81 mg Documented by: Bisacodyl (Dulcolax) 10 mg RECTAL DAILY PRN PRN Reason: Constipation Dextrose (D50w Syringe) 0 gm IV X1 PRN; Protocol PRN Reason: Hypoglycemia Dicyclomine HCl (Bentyl) 20 mg PO Q6H PRN PRN PRN Reason: abdominal discomfort Folic Acid (Folic Acid) 1 mg PO DAILY@0800 [facility] Last Admin: 12/28/19 09:39 Dose: 1 mg Documented by: Gabapentin (Neurontin) 300 mg PO Q8H PRN PRN PRN Reason: moderate to severe anxiety Glucagon () 1 mg IM .X1 PRN PRN Reason: Hypoglycemia Hydroxyzine Pamoate (Vistaril Pamoate Capsule) 50 mg PO Q4H PRN PRN PRN Reason: mild anxiety Sodium Chloride () 250 mls @ 15 mls/hr IV .[id number] PRN PRN Reason: Saline Flush Last Infusion: 12/25/19 09:30 Dose: 0 mls/hr Documented by: Sodium Chloride () 250 mls @ 15 mls/hr IV .[id number] PRN PRN Reason: Additional IVPB Infusion Ceftriaxone Sodium 2 gm/ (Sodium Chloride) 50 mls @ 100 mls/hr IV Q24 [facility] Last Infusion: 12/28/19 10:28 Dose: Infused Documented by: Loperamide HCl (Imodium) 2 mg PO Q4H PRN PRN PRN Reason: LOOSE STOOLS Metoprolol Succinate (Toprol Xl (Beta Tomy)) 25 mg PO DAILY [facility] Last Admin: 12/28/19 09:40 Dose: Not Given Documented by: Nicotine (Nicoderm Cq (Pbkc)) 21 mg TRANSDERM. DAILY [facility] Last Admin: 12/28/19 09:40 Dose: Not Given Documented by: Nitroglycerin (Nitrostat) 0.4 mg SUBLINGUAL Q5M PRN PRN Reason: CARDIAC/CHEST PAIN Nutritional Formula (Lactose Free) (Ensure Clear) 120 ml PO 4X/DAY [facility] Last Admin: 12/28/19 09:52 Dose: 120 ml Documented by: Ondansetron HCl (Zofran) 4 mg IV Q8H PRN PRN PRN Reason: NAUSEA/VOMITING Sodium Chloride () 10 - 40 ml IV UD PRN PRN Reason: SALINE FLUSH Last Admin: 12/28/19 09:52 Dose: 10 ml Documented by: Tamsulosin HCl (Flomax) 0.4 mg PO DAILY@1730 [facility] Last Admin: 12/27/19 16:19 Dose: 0.4 mg Documented by: Thiamine HCl (Vitamin B1) 100 mg PO DAILYCM [facility] Last Admin: 12/28/19 09:39 Dose: 100 mg Documented by: Trazodone HCl (Desyrel) 100 mg PO QHS PRN PRN Reason: INSOMNIA Discharge Diet: Low fat/ Low Cholesterol Discharge Activity: Return to Normal Activity Weight Bearing Status: Weight bearing as tolerated Call your doctor if you observe: Fever of 101 or Higher, Shortness of breath, Dizziness, Fainting spells, Swelling in the ankles, Chest pain, Increased pal pitations (irregular heartbeat) Home Medications: Medications to take at Discharge aspirin 81 mg tablet,delayed release 81 mg PO DAILY 08/23/18 cholecalciferol (vitamin D3) 25 mcg (1,000 unit) capsule 1,000 unit PO DAILY 08/23/18 nitroglycerin 0.4 mg sublingual tablet 0.4 mg SUBLINGUAL Q5-15M PRN 08/23/18 Albuterol Sulfate [Albuterol Sulfate HFA] 2 inhaler PO BID 12/24/19 Hydroxyzine HCl 25 mg PO Q6H PRN PRN 12/24/19 Cefdinir [Omnicef [equiv]] 300 mg PO Q12H #10 cap 12/28/19 Furosemide [Lasix] 20 mg PO DAILY #30 tab 12/28/19 Metoprolol(XL)Succ [Toprol Xl (Beta Tomy)] 12.5 mg PO DAILY #30 tab 12/28/19 Potassium Chloride [K-Dur] 20 meq PO DAILY #20 tab 12/28/19 Following Prescriptions Were Given to Patient: Potassium Chloride [K-Dur] 20 meq PO DAILY #20 tab Transmission Status: Received by [facility]/pharmacy #[id number] Furosemide [Lasix] 20 mg PO DAILY #30 tab Transmission Status: Received by [facility]/pharmacy #[id number] Cefdinir [Omnicef [equiv]] 300 mg PO Q12H #10 cap Transmission Status: Received by [facility]/pharmacy #[id number] Metoprolol(XL)Succ [Toprol Xl (Beta Tomy)] 12.5 mg PO DAILY #30 tab Transmission Status: Received by [facility]/pharmacy #[id number] Primary Care Physician: Zabrina Rdz [employer], [employer] [Primary Care Provider] - Please follow up with your Primary Care Physician in: 1-2 weeks Please Follow Up With: Kirill Le MD When: 1-2 weeks for management of liver disease Patient Instructions: Paracentesis, ED Ascites, ED Hyponatremia Disposition: Home - with outpatient therapy Minutes spent on discharge:: 50 Patient Condition:: Fair Medical Necessity - Tobacco Use Smoking Status: Current every day smoker Tobacco Use: Cigarettes Meaningful Use Info Meaningful Use Diagnoses (Choose all that apply): None applicable Inpatient E&M: 03774 Disch Hosp
--- NOTE | 2019-12-28 11:16 | CASEMGMT ---
This RN CM to room to discuss discharge plan with pt at this time. Pt is agreeable to therapy and her and cousin decide that OP therapy will be better for pt at this time to keep her moving and getting out of house. Pt states she would prefer [facility] as she sees physician there. Order obtained and faxed to [facility] and original to pt at this time. Pt/cousin voice no further concerns/needs at this time and pt states no concerns with going home at time of discharge. SStaten MIGUELINA MOONEY
--- NOTE | 2019-12-28 12:15 | PN.RENAL_ITS ---
Patient Problems: Active and Suspected Problems (Last Updated 08/23/18 @ 10:23 by Gwen Parson) Debility (Acute) Hyponatremia (Acute) Elevated liver enzymes (Acute) Subjective: no new events - Physical Exam Vitals/I&O's: Vital Signs Temp Pulse Resp BP Pulse Ox 98.2 F 116 H 20 H 102/76 97 12/28/19 08:04 12/28/19 11:04 12/28/19 11:04 12/28/19 08:04 12/28/19 08:10 Oxygen Delivery Method [3] Room Air Oxygen Delivery Method [2] Room Air Oxygen Delivery Method [1 ( Room Air Initial Baseline)] Oxygen Delivery Method Room Air Weight: 49.8 kg Body Mass Index (BMI) 20.2 Finger Stick Blood Glucose 47 Intake and Output for Last 24 Hours 12/26/19 12/27/19 12/28/19 23:59 23:59 23:59 Intake Total 2967.5033 / 2967.5033 1700 / 1700 50 / 50 Output Total 4500 / 4500 225 / 225 250 / 250 Balance -1532.4967 / -1532.4967 1475 / 1475 -200 / -200 General: Alert, Oriented x3, Cooperative HEENT: Atraumatic, PERRLA, EOMI, Normocephalic Neck: Supple, No JVD, Negative Carotid Bruits Lungs: Clear to auscultation, Normal air movement Cardiovascular: Regular rate, No murmurs Abdomen: Bowel Sounds Present, Soft, Non Tender Extremities: No edema, Capillary Refill Less than 3 Seconds Skin: No rashes, No breakdown Musculoskeletal: No Tenderness to Palpation of Joints or Extremities Neurological: Cranial nerves II-XII grossly intact Psych/Mental Status: Normal Affect, Appropriate Microbiology Past 72 Hours 12/25/19 12:30 Fluid - Ascites Gram Stain - Final 12/25/19 12:30 Fluid - Ascites Body Fluid Culture - Preliminary No growth-Final to follow 12/25/19 12:30 Fluid - Ascites Anaerobic Culture - Preliminary No growth in 48 hours. 12/24/19 16:25 Urine, Catheterized Urine Culture - Final Presumptive E. coli Laboratory Results 12/28/19 05:48: WBC 7.7, RBC 2.41 L, Hgb 9.0 L, Hct 25.5 L, MCV 105.8 H, MCH 37.3 H, MCHC 35.3, RDW Std Deviation 64.9 H, RDW Coeff of Vickie 17.0 H, Plt Count 71 L, MPV 10.9, Immature Gran % (Auto) 1.200 H, Neut % (Auto) 56.9, Lymph % (Auto) 25.3, [place] % (Auto) 9.3, Eos % (Auto) 6.8 H, Baso % (Auto) 0.5, Absolute Neuts (auto) 4.4, Absolute Lymphs (auto) 1.96, Nucleated RBC % 0.3 12/28/19 05:48: Sodium 132 L, Potassium 3.3 L, Chloride 99, Carbon Dioxide 27.0, Anion Gap 6, BUN 4 L, Creatinine 0.23 L, Estim Creat Clear Calc 230.05, Est GFR (MDRD) Af Amer 410, Est GFR (MDRD) Non-Af 339, BUN/Creatinine Ratio 17.4, Glucos e 80, Calcium 7.7 L, Magnesium 2.0, Total Bilirubin 3.00 H, AST 85 H, ALT 36, Alkaline Phosphatase 275 H, Total Protein 5.1 L, Albumin 1.9 L, Globulin 3.2, Albumin/Globulin Ratio 0.6 L Current Medications Albuterol/Ipratropium (Duoneb) 3 ml INHALATION Q4HWA.RT [facility] Last Admin: 12/28/19 11:04 Dose: 3 ml Documented by: Aspirin (Ecotrin) 81 mg PO DAILYCM [facility] Last Admin: 12/28/19 09:39 Dose: 81 mg Documented by: Bisacodyl (Dulcolax) 10 mg RECTAL DAILY PRN PRN Reason: Constipation Dextrose (D50w Syringe) 0 gm IV X1 PRN; Protocol PRN Reason: Hypoglycemia Dicyclomine HCl (Bentyl) 20 mg PO Q6H PRN PRN PRN Reason: abdominal discomfort Folic Acid (Folic Acid) 1 mg PO DAILY@0800 [facility] Last Admin: 12/28/19 09:39 Dose: 1 mg Documented by: Gabapentin (Neurontin) 300 mg PO Q8H PRN PRN PRN Reason: moderate to severe anxiety Glucagon () 1 mg IM .X1 PRN PRN Reason: Hypoglycemia Hydroxyzine Pamoate (Vistaril Pamoate Capsule) 50 mg PO Q4H PRN PRN PRN Reason: mild anxiety Sodium Chloride () 250 mls @ 15 mls/hr IV .[id number] PRN PRN Reason: Saline Flush Last Infusion: 12/25/19 09:30 Dose: 0 mls/hr Documented by: Sodium Chloride () 250 mls @ 15 mls/hr IV .[id number] PRN PRN Reason: Additional IVPB Infusion Ceftriaxone Sodium 2 gm/ (Sodium Chloride) 50 mls @ 100 mls/hr IV Q24 [facility] Last Infusion: 12/28/19 10:28 Dose: Infused Documented by: Loperamide HCl (Imodium) 2 mg PO Q4H PRN PRN PRN Reason: LOOSE STOOLS Metoprolol Succinate (Toprol Xl (Beta Tomy)) 25 mg PO DAILY [facility] Last Admin: 12/28/19 09:40 Dose: Not Given Documented by: Nicotine (Nicoderm Cq (Pbkc)) 21 mg TRANSDERM. DAILY [facility] Last Admin: 12/28/19 09:40 Dose: Not Given Documented by: Nitroglycerin (Nitrostat) 0.4 mg SUBLINGUAL Q5M PRN PRN Reason: CARDIAC/CHEST PAIN Nutritional Formula (Lactose Free) (Ensure Clear) 120 ml PO 4X/DAY [facility] Last Admin: 12/28/19 09:52 Dose: 120 ml Documented by: Ondansetron HCl (Zofran) 4 mg IV Q8H PRN PRN PRN Reason: NAUSEA/VOMITING Sodium Chloride () 10 - 40 ml IV UD PRN PRN Reason: SALINE FLUSH Last Admin: 12/28/19 09:52 Dose: 10 ml Documented by: Tamsulosin HCl (Flomax) 0.4 mg PO DAILY@1730 [facility] Last Admin: 12/27/19 16:19 Dose: 0.4 mg Documented by: Thiamine HCl (Vitamin B1) 100 mg PO DAILYCM [facility] Last Admin: 12/28/19 09:39 Dose: 100 mg Documented by: Trazodone HCl (Desyrel) 100 mg PO QHS PRN PRN Reason: INSOMNIA Medical Necessity - Tobacco Use Smoking Status: Current every day smoker Tobacco Use: Cigarettes Assessment/Plan All Active Problems (Last Updated 08/23/18 @ 10:23 by Gwen Parson) Debility (Acute) Hyponatremia (Acute) Elevated liver enzymes (Acute) hyponatremia. Clinically hypervolemic. Has a new diagnosis of fatty liver likely related to alcohol. Apparently he has poor appetite for the last few weeks. Looks pretty emaciated. Urine sodium is low, urine osmolality is high. All the labs are consistent with hypervolemic hyponatremia from liver disease. She did well to IV Lasix. sodium is now upto 132. stable hypokalemia. replete as needed ok to dc from my end leave on K supplements dw Dr Anthony will follow thank you
--- NOTE | 2019-12-28 13:02 | PHA.DC.MC ---
Pharmacy Service has performed discharge medication reconciliation and counseling for this patient. 1. CEFDINIR 300MG PO Q12H X 5 DAYS 2. FUROSEMIDE 20MG PO DAILY 3. POTASSIUM CHLORIDE 20MEQ PO DAILY The patient's discharge medication list was reviewed for discrepancies and discrepancies were resolved. Dr. Anthony contacted to discontinue home metoprolol succinate 25mg daily since dose was decreased to 12.5mg PO daily. Home Medications aspirin 81 mg tablet,delayed release 81 mg PO DAILY 08/23/18 cholecalciferol (vitamin D3) 25 mcg (1,000 unit) capsule 1,000 unit PO DAILY 08/23/18 nitroglycerin 0.4 mg sublingual tablet 0.4 mg SUBLINGUAL Q5-15M PRN 08/23/18 Albuterol Sulfate [Albuterol Sulfate HFA] 2 inhaler PO BID 12/24/19 Hydroxyzine HCl 25 mg PO Q6H PRN PRN 12/24/19 Cefdinir [Omnicef [equiv]] 300 mg PO Q12H #10 cap 12/28/19 Furosemide [Lasix] 20 mg PO DAILY #30 tab 12/28/19 Metoprolol(XL)Succ [Toprol Xl (Beta Tomy)] 12.5 mg PO DAILY #30 tab 12/28/19 Potassium Chloride [K-Dur] 20 meq PO DAILY #20 tab 12/28/19 The patient was counseled on the following discharge medications and changes in medications for homegoing were reviewed. The Reason for Use, instructions for use, and potential side effects were reviewed for all new medications. The patient's questions regarding all of their medications were answered. Patient refused taking medication information print outs. The patient was able to verbally demonstrate an understanding of their discharge medications. Patient was counseled by director pharmacy servicesKandy.
== END 2019-12-28 13:10 | disposition home or self-care (01) | DRG 426 ==
LOC: ED 17:46 → PCU 20:06
PROVIDERS: Hospitalist; Internal Medicine Nephrology; Admitting Provider Internal Medicine; Emergency Provider Emergency Medicine; PCP Nurse Practitioner Family; Referring Provider Internal Medicine; Visit Provider Student in an Organized Health Care Education/Training Program
DX: E87.1 Hypo-osmolality and hyponatremia (principal); E87.70 Fluid overload, unspecified; R18.8 Other ascites; K70.0 Alcoholic fatty liver; E83.39 Other disorders of phosphorus metabolism; E43 Unspecified severe protein-calorie malnutrition; E83.51 Hypocalcemia; E83.42 Hypomagnesemia; E87.6 Hypokalemia; F10.10 Alcohol abuse, uncomplicated; K70.9 Alcoholic liver disease, unspecified; E88.09 Other disorders of plasma-protein metabolism, not elsewhere classified; R91.1 Solitary pulmonary nodule; E16.2 Hypoglycemia, unspecified; I25.10 Atherosclerotic heart disease of native coronary artery without angina pectoris; D69.6 Thrombocytopenia, unspecified; K52.9 Noninfective gastroenteritis and colitis, unspecified; I48.0 Paroxysmal atrial fibrillation; E78.5 Hyperlipidemia, unspecified; J98.11 Atelectasis; J90 Pleural effusion, not elsewhere classified; N39.0 Urinary tract infection, site not specified; B96.20 Unspecified Escherichia coli [E. coli] as the cause of diseases classified elsewhere; Z16.23 Resistance to quinolones and fluoroquinolones; F17.210 Nicotine dependence, cigarettes, uncomplicated; Z87.01 Personal history of pneumonia (recurrent); Z95.5 Presence of coronary angioplasty implant and graft; M19.90 Unspecified osteoarthritis, unspecified site; Z68.20 Body mass index [BMI] 20.0-20.9, adult; Z79.82 Long term (current) use of aspirin; Z79.899 Other long term (current) drug therapy
CPT/HCPCS: 36415; 49083; 51702; 71045; 74176; 76705; 76830; 80048; 80053; 80074; 80076; 80307; 80329; 81001; 82378; 82570; 82945; 82962; 83605; 83615; 83690; 83735; 83880; 83930; 83935; 84100; 84157; 84300; 84439; 84443; 84484; 85025; 85610; 87070; 87075; 87086; 87088; 87186; 87205; 87635; 88108; 88305; 88313; 88341; 88342; 89050; 93005; 93306; 94640; 97110; 97162; 97166; 97530; 97535; 97802; 97803; 99251; 99285; 99406; J7030; J7040; J7050; P9047; Q9957; A4216; C8929; G0463; G0480; J0610; J0696; J0744; J1940; U0003

== ENCOUNTER 2020-01-14 13:03 | Emergency (ER) | payer MEDICAID, SELFPAY ==
[2019-12-25 11:48] VITALS: BMI 20.2
[2020-01-14 13:04] VITALS: BP 128/92; PULSE 111; RESP 17; TEMP 36.1; O2SAT 100; BMI 15.4
--- NOTE | 2020-01-14 14:06 | ED.DCSUM_ITS ---
History of Present Illness Chief Complaint: Abd Pain Informant: Patient Narrative: 50-year-old female with history of liver disease secondary to alcoholic cirrhosis presenting with abdominal fullness. She states she was here a couple of weeks ago and had paracentesis while she was hospitalized. She states that she has been alcohol free since she was discharged. - Past Medical History (1) Ascites Status: Chronic (2) Cirrhosis Status: Chronic (3) Afib Status: Chronic (4) Coronary artery disease involving craig heart Status: Chronic (5) HLD (hyperlipidemia) Status: Chronic Past Medical History - Allergies and Home Meds Allergies/Adverse Reactions: Allergies No Known Allergies Allergy (Verified 01/14/20 13:03) Primary Care Physician: Zabrina Rdz HEARING CARE PRACTITIONER, HEARING CARE PRACTITIONER-C [NON-STAFF] - Past Medical History: - - Reviewed in problem list Surgical History: hysterectomy, - - Status post cardiac catheterization, lurdes arean section, history of D&C Lives: With Family Smoking Status: Current every day smoker Alcohol: None Drugs: None - Family History Maternal Family History: Family History (Last Updated 08/23/18 @ 10:26 by Gwen Parson) Father CAD (coronary artery disease) Mother CAD (coronary artery disease) Myocardial infarction Sister CAD (coronary artery disease) Family History: Reports: Heart Disease, Hypertension Paternal Family History: Family History (Last Updated 08/23/18 @ 10:26 by Gwen Parson) Father CAD (coronary artery disease) Mother CAD (coronary artery disease) Myocardial infarction Sister CAD (coronary artery disease) Family History: Reports: Heart Disease Review of Systems General: Denies: Chills, Fever, Sweats Eyes: Denies: Visual changes - bilaterally, Diplopia ENT: Denies: Rhinorrhea, Sore throat Respiratory: Denies: Dyspnea, Cough, Dyspnea on exertion Gastrointestinal: Reports: Abdominal pain Genitourinary: Denies: Dysuria, Hematuria, Frequency Musculoskeletal: Denies: Back pain, Extremity Pain Skin: Denies: Rash, Wounds Neurological: Denies: Headache, Weakness, Numbness Physical Exam Vital Signs/Narrative: Vital Signs Temp Pulse Resp BP Pulse Ox 01/14/20 13:04 97.0 F L 111 H 17 128/92 H 100 General: Well nourished, No Acute Distress Head: Normocephalic, Atraumatic Eyes: Perrl, EOMI, Scleral icterus Cardiovascular: Regular rate, Regular rhythm Respiratory: No distress, CTA bilaterally Abdomen: Tender, - - Abdomen is distended with positive fluid wave. Skin: No rash. Negative for: Cyanosis Neurological: Alert, Oriented x3 Psychological: Normal affect, Normal Mood Diagnostic/Tx/Re-eval Laboratory Data 01/14/20 01/14/20 01/14/20 14:30 14:30 14:30 WBC 9.5 RBC 3.63 L Hgb 13.0 Hct 39.1 MCV 107.7 H MCH 35.8 H MCHC 33.2 RDW Std Deviation 54.4 H RDW Coeff of Vickie 13.7 Plt Count 272 MPV 10.7 Immature Gran % (Auto) 0.400 Neut % (Auto) 63.7 Lymph % (Auto) 25.3 [place] % (Auto) 9.3 Eos % (Auto) 0.8 Baso % (Auto) 0.5 Absolute Neuts (auto) 6.0 Absolute Lymphs (auto) 2.40 Nucleated RBC % 0 PT 14.2 INR 1.2 Sodium 138 Potassium 3.2 L Chloride 106 Carbon Dioxide 25.0 Anion Gap 7 BUN 3 L Creatinine 0.41 L Estim Creat Clear Calc 104.62 Est GFR (MDRD) Af Amer 210 Est GFR (MDRD) Non-Af 174 BUN/Creatinine Ratio 7.3 L Glucose 83 Calcium 8.3 L Total Bilirubin 1.40 H AST 64 H ALT 32 Alkaline Phosphatase 182 H Total Protein 6.6 Albumin 2.2 L Globulin 4.4 H Albumin/Globulin Ratio 0.5 L - Medical Decision Making Patient presents for paracentesis as he is having increasing abdominal pain. Her last paracentesis was 2 weeks ago. She has not been able to schedule outpatient paracentesis through her regular physician. She tried to go to the ER last night but told that they did not have anybody that could do a paracentesis. Patient's lab work today appears improved over her previous admission. Dr. Espana was amenable to performing paracentesis which she tolerated well. Did pull off 3 L. Patient feels much improved. I feel she is stable for discharge at this time and she will follow-up with her specialist outpatient. Impression: 1. Ascites 2. Status post paracentesis ED Disposition - Plan for ED Patient: Disposition: Home or Assisted Living Instructions: Paracentesis, ED Ascites Referrals: Zabrina Rdz HEARING CARE PRACTITIONER, HEARING CARE PRACTITIONER-C [NON-STAFF] -
[2020-01-14 14:43] LABS: Basophil# 0.05 X10^3/uL; Basophil% 0.5 % (0-1); Eosinophil# 0.08 X10^3/uL; Eosinophils% 0.8 % (0-5); Hematocrit 39.1 % (37-47); Lymphocyte % 25.3 % (19-41); Mean Corp Hgb Conc 33.2 g/dL (32-36); Mean Corpuscular Hgb 35.8 pg (27.0-32.0); Mean Corpuscular Volume 107.7 fL (81-99); Mean Platelet Vol. 10.7 fl (6.2-12.0); Monocyte# 0.88 X10^3/uL; Monocyte% 9.3 % (0-10); NRBC Flagged by Analyzer 0 % (0-5); Neutrophil # 6.03 X10^3/uL (2.7-7.7); Neutrophil % 63.7 % (47-70); Platelet Count 272 K/mm3 (150-450); RBC Distribution Width CV 13.7 % (11.6-14.6); RBC Distribution Width SD 54.4 fl (35.1-43.9); Red Blood Count 3.63 M/mm3 (4.2-5.4); White Blood Count 9.5 K/mm3 (4.4-11.0)
[2020-01-14 14:48] LABS: International Normalized Ratio 1.2; Prothrombin Time (Protime)PT. 14.2 SECONDS (11.7-14.9)
[2020-01-14 14:58] LABS: ALB/GLOB Ratio 0.5 RATIO (0.9-2.4); AST(SGOT) 64 U/L (15-37); Alanine Aminotransfer ALT/SGPT 32 U/L (13-56); Albumin, Serum 2.2 g/dL (3.2-5.0); Alkaline Phosphatase 182 U/L (45-117); Anion Gap 7 (5-15); BUN 3 mg/dL (7-18); BUN/Creat Ratio 7.3 RATIO (10-20); Calcium,Total 8.3 mg/dL (8.5-10.1); Chloride 106 mmol/L (98-107); Creatinine, Serum 0.41 mg/dL (0.55-1.02); EST Glomerular Filtration Rate 174 mL/min (>60); Est Glom Filt Rate - Afr Amer 210 mL/min (>60); Estimated Creatinine Clearance 104.62 ml/min; Globulin 4.4 g/dL (2.2-4.2); Glucose 83 mg/dL (74-106); Potassium 3.2 mmol/L (3.5-5.1); Protein, Total 6.6 g/dL (6.4-8.2); Sodium Level 138 mmol/L (136-145)
[2020-01-14] MEDS: Ondansetron 4 MG/2 ML Vial IM (15:59)
[2020-01-14] MEDS: Morphine 4 MG/ML Syringe IV (16:00)
[2020-01-14 16:36] VITALS: BP 123/87; PULSE 95; RESP 12; O2SAT 99
--- NOTE | 2020-01-14 16:37 | PCM.OPRPT ---
Problem List (1) Cirrhosis Status: Acute Qualifiers: Hepatic cirrhosis type: alcoholic cirrhosis Ascites presence: with ascites Qualified Code(s): K70.31 - Alcoholic cirrhosis of liver with ascites (2) Ascites Status: Acute Qualifiers: Ascites type: due to alcoholic cirrhosis Qualified Code(s): K70.31 - Alcoholic cirrhosis of liver with ascites Report of Operation Date of Procedure: 01/14/20 Pre-Operative Diagnosis: Tense ascites due to cirrhosis Post-Operative Diagnosis: Same Surgery/Procedure Performed:: Ultrasound-guided paracentesis Specimen's removed: Straw-colored fluid Description of Procedure: The patient had tense ascites and has had paracentesis in the past with an analysis of fluid. Patient has cirrhosis and labs were checked and INR was 1.2. Risks of bleeding and infection were discussed with the patient. Patient accepted and would like to proceed. The skin overlying the left lower quadrant was prepped and draped in usual sterile fashion. Ultrasound was used to choose a location with ascites and the skin was anesthetized with 2% lidocaine. A small shayna was made the skin with an 11 blade scalpel. Next the 8 Romansh sheath and needle were placed into the ascites under ultrasound guidance. The sheath was kept in place and the needle was removed and the catheter was connected to suction. 3 L of straw-colored fluid were removed from the abdomen. The abdomen is soft at the end of the procedure. The catheter was removed and a bandage was placed over the incision. Patient tolerated the procedure well.
[2020-01-14 17:14] VITALS: BP 128/87; PULSE 94; RESP 13; O2SAT 96
== END 2020-01-14 17:17 | disposition home or self-care (01) ==
PROVIDERS: Emergency Provider Student in an Organized Health Care Education/Training Program; PCP Student in an Organized Health Care Education/Training Program
DX: K70.31 Alcoholic cirrhosis of liver with ascites (principal); E78.5 Hyperlipidemia, unspecified; I25.10 Atherosclerotic heart disease of native coronary artery without angina pectoris; I48.91 Unspecified atrial fibrillation; Z79.82 Long term (current) use of aspirin; Z79.899 Other long term (current) drug therapy; F17.200 Nicotine dependence, unspecified, uncomplicated
CPT/HCPCS: 49083; 49082; 80053; 85025; 85610; 96372; 96374; 99281; A4216; J2405

== ENCOUNTER → 2020-07-23 06:15 | Outpatient (CLI) | payer MEDICAID, SELFPAY ==
[2020-06-20 14:09] VITALS: BMI 19.7
--- NOTE | 2020-07-23 18:06 | STRESSREP_ITS ---
Stress Test Report Date: 07-23-2020 Procedure: Pharmacologic stress nuclear imaging study Indications: CAD; PCI; atrial fibrillation; aortic valve insufficiency Consent: Per the patient Procedure: The patient underwent pharmacologic (Regadenoson 0.4mg ) evaluation with a peak heart rate of 93 beats per minute (55%predicted maximal heart rate) and a peak blood pressure of 112/80 mmHg. The baseline ECG demonstrated normal sinus rhythm. The peak pharmacologic ECG demonstrated no obvious ECG changes. There were no cardiac dysrhythmias pretest, during pharmacologic infusion, or recovery. There was no complaint of chest discomfort during pharmacologic infusion or recovery. The examination was discontinued secondary to completion of protocol. Impression: 1. Pharmacologic (Regadenoson) evaluation 2. Peak pharmacologic ECG with no obvious ECG changes. 3. There were no cardiac dysrhythmias pretest, during pharmacologic infusion, or recovery. 4. Nuclear images pending Myocardial perfusion imaging study: Technique: The patient was injected with 10.1 millicuries of technetium 99m Cardiolite and subsequently rest SPECT Cardiolite nuclear imaging was obtained in the horizontal long, vertical long, and short axis views. The patient underwent pharmacologic (Regadenoson) evaluation with a peak heart rate of 93 beats per minute (55% percent predicted maximal heart rate) and a peak blood pressure of 112/80 mmHg. The patient was injected with 33.1 millicuries of technetium 99m Cardiolite and subsequently stress SPECT Cardiolite nuclear imaging was obtained in the horizontal long, vertical long, and short axis views. A gated Cardiolite study at peak stress was obtained. Interpretation: Rest and stress SPECT Cardiolite nuclear imaging status post realignment, normalization, and attenuation correction demonstrate relative uniform tracer uptake and myocardial perfusion appearing within normal limits. There is end systolic thickening and brightening. The gated Cardiolite study demonstrates myocardial thickening and inward wall motion. The reported LVEF is 83%. Impression: 1. Rest and stress SPECT Cardiolite nuclear imaging demonstrate relative uniform tracer uptake and myocardial perfusion appearing within normal limits. 2. The gated Cardiolite study reports an LVEF of 83%. This note was generated with [employer] software. It may contain incorrect words, spelling, and punctuation that were not noted in checking the note before signing.
== END ==
PROVIDERS: PCP Student in an Organized Health Care Education/Training Program; Referring Provider Internal Medicine Cardiovascular Disease; Visit Provider Internal Medicine Cardiovascular Disease
DX: I25.10 Atherosclerotic heart disease of native coronary artery without angina pectoris (principal)
CPT/HCPCS: 78452; 93017; A9500; A4216; J2785

== ENCOUNTER → 2020-10-24 08:48 | Outpatient (CLI) | payer MEDICAID, SELFPAY ==
[2020-10-14 14:17] VITALS: BMI 21.8
--- NOTE | 2020-10-24 14:02 | PFTCOMP_ITS ---
COMPLETE PULMONARY FUNCTION TEST INTERPRETATION Brief HPI: Patient is a 50 year old female, currently under the care of myself, who presents to [facility] for complete pulmonary function tests secondary to diagnosis of dyspnea. Respiratory therapist reports good effort and reproducible results. Interpretation: Forced expiration spirometry shows a mild large airways obstructive ventilatory defect with an FEV1 of 69% predicted. There is no significant bronchodilator response by strict ATS criteria. Spirograms are of poor quality and and show exhalation for only 2 seconds, likely underestimating FVC. The respiratory flow volume loop shows a normal pattern. Lung volumes by body plethysmography show a normal total lung capacity at 5.41 L, 109% predicted. FRC and RV are elevated out of proportion. Lung volume measurements are consistent with hyperinflation and air-trapping. Diffusion capacity by carbon monoxide is decreased at 56% predicted. The airway resistance is elevated. No previous pulmonary function tests were available for review. Impression: Irreversible mild large airways obstructive ventilatory defect with a disproportionate reduction in diffusion capacity. Patient did have difficulty with testing, so results should be interpreted with caution.
== END ==
PROVIDERS: PCP Student in an Organized Health Care Education/Training Program; Referring Provider Internal Medicine Critical Care Medicine; Visit Provider Internal Medicine Critical Care Medicine
DX: R06.00 Dyspnea, unspecified (principal)
CPT/HCPCS: 94060; 94726; 94729

== ENCOUNTER → 2020-10-29 11:16 | Outpatient (CLI) | payer MEDICAID, SELFPAY ==
[2020-10-14 14:17] VITALS: BMI 21.8
[2020-10-29 11:39] VITALS: PULSE 111; PULSE 113; PULSE 116; PULSE 119; PULSE 120; PULSE 125; O2SAT 95; O2SAT 96; O2SAT 97; O2SAT 98; O2SAT 989
--- NOTE | 2020-10-29 11:44 | CPS ---
Only thing that bothered her was her leg numbness.
--- NOTE | 2020-10-30 09:49 | PCM.PSN.6M ---
PSN 6 Minute Walk Test 6 Minute Walk Test 6 Minute Walk Test: 6 Minute Walk Test PSN:6-Minute Walk Test Start: 10/29/20 11:39 Freq: Status: Active Protocol: [id number] Document 10/29/20 11:39 FR (Rec: 10/29/20 11:45 FR [id number]) 6 Minute Walk Test Date Performed 10/29/20 Time Performed 11:20 Height 5 ft 4 in Weight: 56.699 kg Weight in Pounds 125.[address]: Dr. Bradshaw Assistive device used: None Pre-test Oxygen Delivery Method Room Air Pulse Ox (%) 989 Pulse Rate (60-100 beats/min) 111 H Dyspnea Bonnie Scale (0-10) 2 Exertion Bonnie Scale (6-20) 7 1st minute Oxygen Delivery Method Room Air Pulse Ox (%) 98 Pulse Rate (60-100 beats/min) 116 H 2nd minute Oxygen Delivery Method Room Air Pulse Ox (%) 95 Pulse Rate (60-100 beats/min) 111 H 3rd minute Oxygen Delivery Method Room Air Pulse Ox (%) 97 Pulse Rate (60-100 beats/min) 120 H 4th minute Oxygen Delivery Method Room Air Pulse Ox (%) 96 Pulse Rate (60-100 beats/min) 119 H 5th minute Oxygen Delivery Method Room Air Pulse Ox (%) 97 Pulse Rate (60-100 beats/min) 120 H 6th minute Oxygen Delivery Method Room Air Pulse Ox (%) 97 Pulse Rate (60-100 beats/min) 125 H Dyspnea Bonnie Scale (0-10) 4 Exertion Bonnie Scale (6-20) 10 Post-test Oxygen Delivery Method Room Air Pulse Ox (%) 97 Pulse Rate (60-100 beats/min) 113 H Full Laps Walked 17 Partial Lap, Number of Tiles Walked 19 Total Distance Walked (ft) 1022 10/29/20 11:44 Cardiopulmonary Services by Cherise Zimmerman Only thing that bothered her was her leg numbness. Initialized on 10/29/20 11:44 - END OF NOTE Interpretation Interpretation: The patient ambulated 1022 feet over the course of 6 minutes beginning on room air without assistive devices. Pretesting oxygen saturation was noted to be 98% on room air. With ambulation, the becky oxygen saturation was 95%. There was no significant exertional oxygen desaturation. Recommendations Recommendations: There is no indication for the use of supplemental oxygen at this time.
== END ==
PROVIDERS: PCP Student in an Organized Health Care Education/Training Program; Referring Provider Internal Medicine Critical Care Medicine; Visit Provider Internal Medicine Critical Care Medicine
DX: R06.00 Dyspnea, unspecified (principal)
CPT/HCPCS: 94618

== ENCOUNTER → 2020-11-05 07:58 | Outpatient (CLI) | payer MEDICAID, SELFPAY ==
[2020-10-14 14:17] VITALS: BMI 21.8
--- NOTE | 2020-11-05 07:59 | CT_ITS ---
STUDY: LOW DOSE CT LUNG CANCER SCREENING REASON FOR EXAM: Female, 50 years old. Screening. Patient smoked half a pack a day for 36 years. RADIATION DOSAGE (If Supplied By Facility): CTDIvol = ( 2.01 ) mGy, DLP = ( 67.96 ) mGycm TECHNIQUE: No contrast was administered. Low dose technique was utilized (average mAS-38 and kVp 120). 1.25 mm axial source images with a slice interval of 1.25-mm were reconstructed in lung windows. 2.5 mm axial source images with a slice interval of 2.5-mm were reconstructed in lung windows. 5.0 mm axial source images with a slice interval of 5.0-mm were reconstructed in soft tissue windows. Nodule measured using lung windows on PACS and/or independent workstation with automated measurement of minimum and maximum diameter. Nodule measurement reported as average diameter rounded to the nearest whole number. Growth is defined as an increase ins size of greater than 1.5 mm. COMPARISON: None. NODULES: No suspicious nodules are seen. Emphysema: Hyperinflation. Emphysematous changes with scattered bulla in the upper lobes. Mild scarring in the posterior medial segment of the right lower lobe. Mild degree of basilar scarring at both lung bases. Endobronchial lesion: None Aorta: Minimal calcific plaque at the level of the aortic arch. Coronary arteries: Coronary artery calcification. Heart: Unremarkable Pulmonary artery: Unremarkable Mediastinal nodes: Unremarkable Other chest and abdominal findings: Degenerative changes of the thoracic vertebrae. CT/Low Dose CT Lung Screening IMPRESSION: Lung-RADS category 2 - Continue annual screening with LDCT in 12 months. IMPORTANT NOTES FOR USE: ACR Lung-RADS Version 1.1 Assessment Categories Release Date: 2018 Category: Coded 0-4 bases on nodule(s) with highest degree of suspicion. Negative screen is defined as categories 1 and 2; a positive screen is defined as categories 3 and 4. Category 3 and 4A nodules that are unchanged on interval CT should be coded as category 2, and individuals returned to screening in 12 months. Category 4X: Category 3 or 4 nodules with additional imaging findings that increase the suspicion of lung cancer, such as spiculation, GGN that doubles in size in 1 year, enlarged lymph notes, etc. Category Modifiers: S (significant finding unrelated to lung cancer) Electronically Signed: Jean Stevens MD at 8:57 EDT , Service support ,
== END ==
PROVIDERS: PCP Student in an Organized Health Care Education/Training Program; Referring Provider Internal Medicine Critical Care Medicine; Visit Provider Internal Medicine Critical Care Medicine
DX: R06.00 Dyspnea, unspecified (principal); F17.210 Nicotine dependence, cigarettes, uncomplicated
CPT/HCPCS: 71271

== ENCOUNTER 2021-01-21 13:10 | Outpatient (RCR) | payer MEDICAID, SELFPAY ==
--- NOTE | 2021-02-04 13:34 | HP.FCE ---
Floor (Occasional 1-33% of Day): NA Floor (Frequent 34-66% of Day): NA Floor (Constant 67-100% of Day): NA Floor PDL: No Ability Knee (Occasional 1-33% of Day): 5# Knee (Frequent 34-66% of Day): NA Knee (Constant 67-100% of Day): NA Knee PDL: Sedentary Waist (Occasional 1-33% of Day): 5# Waist (Frequent 34-66% of Day): NA Waist (Constant 67-100% of Day): NA Waist PDL: Sedentary Shoulder (Occasional 1-33% of Day): NA Shoulder (Frequent 34-66% of Day): NA Shoulder (Constant 67-100% of Day): NA Shoulder PDL: No Ability Overhead (Occasional 1-33% of Day): NA Overhead (Frequent 34-66% of Day): NA Overhead (Constant 67-100% of Day): NA Overhead PDL: No Ability Bending: Occasional Ability (1-33% of day) Comments: with external support Squatting: Occasional Ability (1-33% of day) Comments: with external support Kneeling: No Ablility (0% of day) Reaching out: Occasional Ability (1-33% of day) Reaching up: Occasional Ability (1-33% of day) Sitting: Frequent Ability (34-66% of day) Walking: Occasional Ability (1-33% of day) Standing: Occasional Ability (1-33% of day) Duration Sedentary Sedentary Light Light Light Medium Medium Medium Heavy Very Heavy Heavy Occasional (0-33% of day) Frequent (34-66% of day) Constant (67-100% of day) 10 # Negligible Negligible 15 # 8 # Negligible 20 # 10# Negli. 35 # 18 # 7 # 50 # 25 # 10 # 75 # 100 # >100 # 38 # 50 # >50 # 15 # 20 # >20 # Weight:: 57.606 kg Hand Dominance: right Medical History Including Restrictions: pt states she was in good health until she started drinking more alcohol in 2018 and from 2018 to 2020 she was drinking heavily. pt states in 2020 she did seek medical help for alcohol addiction. pt states she has now been alcohol free for one year. pt states she has suffer from side affects as neuropathy and cirrhosis of the liver. pt does no exercise on a regular basis. pt states she feels weakness and pain limit her with her mobility. Pt states she was given orders for physical therapy but did not schedule due to pandemic- at this time pt has not pursued physical therapy or physical rehabilitation since she was discharged from the hospital. pt smokes cigarettes' and has for years. Diagnoses: Rheumatoid Arthritis dx about 12 years ago. psoriatic arthritis dx 2006. Osteoarthritis dx 2019. Afib dx 2017. atrial regurgitation dx 2019. cardiac stint done 2016. neuropathy. Cirrhosis of the liver 2019. Anxiety controlled by medication. COPD Symptoms: fatigued. bilateral hand pain. bilateral shoulder pain. SOB. leg pain. tingling/ numbness in LE. shooting pains Pain: pt states she currently is 7/10 pt is taking pain medication meloxicam, otezela, gabapentin. pt states she did not take her pain medication as she just woke up and left for her apt. Work History: pt states she was last employed at [email or web address] in 2015. pt states she was only able to work there for 6 months pt states she left this job as her anxiety was unable to mtg. 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 pt states she enjoyed this job- and did her job well. pt left this job as she had gotten and she could be a stay at home . Behavioral: pt was cooperative throughout session. ADLS: pt lives with her parents in a two story home with a attached apt. pt has two steps with a rail. pt has a tub shower combination with grab bars. pt has a shower chair but does not use it. pt states she is IND with standing for shower- pt states she is ind with bathing. pt needs assistance for LE dressing mom helps. pt states her mom does the cooking- states she use to do it a little but not much now. pt states she tries to do light cleaning but her mon does most of it. pt states her mom does her laundry. pt states she relies on family for assistance when needed. pt mom carries groceries in for her but she can do light shopping. ROM: pt demo with left UE limited shoulder flex to 90*. no other limited ROM noted throughout. Strength: pt demo with BUE and LE MMT at 4/5 grossly throughout Right Ornamental Metalwork Designer Strength Average: 20.00 Right Ornamental Metalwork Designer Strength Percentile: <.2% Left Ornamental Metalwork Designer Strength Average: 15.00 Left Ornamental Metalwork Designer Strength Percentile: <.2% Right Lateral Pinch Average: 4.00 Right Lateral Pinch Percentile: <10% Left Lateral Pinch Average: 4.00 Left Lateral Pinch Percentile: <10% Right Tripod Pinch Average: 4.00 Right Tripod Pinch Percentile: <10% Left Tripod Pinch Average: 4.00 Left Tripod Pinch Percentile: <10% Comments: Ornamental Metalwork Designer and pinch strength demonstrate weakness grossly through hands that would increase need of assist with daily occupations. heart rate 78 Sensation: pt reports tingling in bilateral hands at times. states she does drop objects. [employer] sensory testing: right hand 2.83 all digits test in Normal sensation. left hand 2.83 all digits test in Normal sensation Fine Motor: 9 hole peg test. right 36.38 =0% for age ( limited speed of fine motor control). left 46.97 0% for age Balance: pt demo with good balance static balance and fair+ dynamic balance. Bending: pt demonstrated the ability to bend forward 3/3 without externa support. 10/10 with external support- pt complained of being light headed following- pt demo 10/10 rapidly. pt can bend forward on a occasional ability with external support Squatting: pt demonstrated the ability to squat 3/3 and 10/10 with external support pt unable to perform squatting rapidly. pt reported burring in quads. pt can squat on a occasional ability with external support. Kneeling: pt demo the ability to kneel 1/3 times leaning heavily on external support -pt unable to perform safely Reaching out/up: pt completed reaching up/out 3/3, 10/10, and 3/10 rapidly pt refused more stated left arm has increase tingling. pt states her pain is 7/10. pt heart rate 82. pt can reach up low occasional ability or rarely. pt can reach out on occasional ability Walking: pt ambulated throughout department for 1020 feet with slow antalgic gait pattern. pt c/o pain and leg weakness. pt can ambulate on a occasional ability. Standing: pt demo the ability to stand for 6 min throughout session- pt would stand and use this body wt. shift as a relief kristopher. to decrease pain from sitting. with standing pt did shift body weight. pt can stand on a occasional ability. Sitting: pt demonstrated the ability to sit for 45 min with no apparent discomfort. Climbing Stairs: pt demo the ability to ascend and descend 10 steps with a slow reciprocal step pattern and using arm rails. Floor Lift: unable Knee Lift: pt demo the ability to lift 5# with poor lift mechanics. Waist Lift: pt demo the ability to lift 5# with poor lift mechanics. Shoulder Lift: unable Overhead Lift: unable Carrying: pt carry 5# for 3 feet. Comments: pt limited with performance of test due to weakness and complaints of pain. pt has not participated in physical rehab since her discharge from the hospital.
--- NOTE | 2021-02-04 13:34 | HP.OTFCE.D ---
FCE D/C Summary - Discharge ROSEANNA CARDOZO was seen for a one time visit for an FCE on 01/21/21 and is discharged.
== END 2021-01-21 19:00 | disposition home or self-care (01) ==
LOC: OT 13:10
PROVIDERS: PCP Student in an Organized Health Care Education/Training Program; Referring Provider Student in an Organized Health Care Education/Training Program; Visit Provider Student in an Organized Health Care Education/Training Program
DX: Z56.0 Unemployment, unspecified (principal)
CPT/HCPCS: 97750

== ENCOUNTER → 2022-12-31 | Outpatient (CLI) | payer MEDICAID, SELFPAY ==
--- NOTE | 2022-12-31 13:57 | ECHOD_ITS ---
Left Ventricle Normal size and thickness. The left ventricular ejection fraction is 60 %. No evidence for diastolic dysfunction. Right Ventricle Normal right ventricle. Atria The left and right atria are normal. Mitral Valve Mild (1+) mitral valve insufficiency. Tricuspid Valve Mild tricuspid valve insufficiency. Normal pulmonary artery pressure. Aortic Valve Trisinus/trileaflet aortic valve. Mild-Moderate (1-2+) aortic valve insufficiency. Pulmonic Valve The pulmonic valve is not well visualized. Great Vessels Normal sized aortic root. Pericardium/Pleural Trivial anterior pericardial effusion. MMode/2D Measurements & Calculations LVIDd: 4.2 cm IVSd: 0.87 cm Ao root diam: 2.9 cm LVIDs: 2.4 cm LVPWd: 0.91 cm RVDd: 2.6 cm FS: 43.6 % LAV(MOD-bp): 30.8 ml LVAd ap4: 23.6 cm2 LVAd ap2: 24.5 cm2 LAV(MOD-bp) Indexed: 19.2 ml/m2 LVLd ap4: 7.4 cm LVLd ap2: 7.6 cm LAV(MOD-sp2): 32.9 ml EDV(MOD-sp4): 61.2 ml EDV(MOD-sp2): 65.0 ml LAV(MOD-sp4): 27.4 ml EDV(sp4-el): 64.0 ml EDV(sp2-el): 67.5 ml LVAs ap4: 14.8 cm2 LVAs ap2: 15.7 cm2 LVLs ap4: 6.5 cm LVLs ap2: 6.5 cm ESV(MOD-sp4): 28.3 ml ESV(MOD-sp2): 31.5 ml ESV(sp4-el): 28.4 ml ESV(sp2-el): 32.1 ml EF(MOD-sp4): 53.8 % EF(MOD-sp2): 51.5 % EF(sp4-el): 55.5 % SV(MOD-sp4): 33.0 ml SV(MOD-sp2): 33.5 ml SV(sp4-el): 35.5 ml LA dimension(2D): 3.5 cm LA A4 area: 12.7 cm2 RA A4 area: 9.2 cm2 TAPSE: 1.6 cm Time Measurements MV dec time: 0.17 sec Doppler Measurements & Calculations MV E max torey: 76.1 cm/sec Lat Peak E' Torey: 8.5 cm/sec Med Peak E' Torey: 7.9 cm/sec MV A max torey: 91.8 cm/sec E/E' lat: 9.0 E/E' med: 9.7 MV E/A: 0.83 MV dec slope: 443.2 cm/sec2 Ao V2 max: 166.2 cm/sec AI max torey: 390.0 cm/sec Ao max P.1 mmHg AI max P.9 mmHg Ao V2 mean: 112.1 cm/sec AI dec slope: 177.3 cm/sec2 Ao mean P.8 mmHg AI P1/2t: 644.3 msec Ao V2 VTI: 36.3 cm AV (velocity ratio): 0.81 LV V1 max: 138.0 cm/sec PA V2 max: 79.7 cm/sec TR max torey: 206.5 cm/sec LV V1 max P.6 mmHg TR max P.1 mmHg LV V1 mean P.1 mmHg LV V1 mean: 95.7 cm/sec LV V1 VTI: 29.5 cm ECHO/Echo Complete Interpretation Summary The left ventricular ejection fraction is 60 %. No evidence for diastolic dysfunction. Mild (1+) mitral valve insufficiency. Mild tricuspid valve insufficiency. Mild-Moderate (1-2+) aortic valve insufficiency. Trivial anterior pericardial effusion Ordering Physician: Cassie Glasgow Referring Physician: Cassie Glasgow Performed By: RR
--- NOTE | 2022-12-31 13:57 | CT_ITS ---
EXAM: CT CHEST, LUNG CANCER SCREENING WITHOUT INTRAVENOUS CONTRAST CLINICAL INDICATION: smoker TECHNIQUE: Helically acquired images were obtained of the chest without intravenous contrast using low dose (LDCT) lung cancer screening protocol. This CT exam was performed using one or more of the following dose reduction techniques: automated exposure control, adjustment of the mA and/or kV according to patient size, and/or use of iterative reconstruction technique. COMPARISON: No relevant prior studies available. FINDINGS: LUNGS AND PLEURAL SPACES: Unremarkable. No mass. No consolidation or edema. No pleural effusion or thickening. No pneumothorax. HEART: Unremarkable. Heart size is normal. No pericardial effusion. No significant coronary artery calcifications. MEDIASTINUM: Unremarkable. No mediastinal or hilar adenopathy. Esophagus is unremarkable. No hiatal hernia. THYROID: Unremarkable. No thyroid lesions. BONES/JOINTS: Unremarkable. No suspicious lytic or blastic abnormality. VASCULATURE: Unremarkable. Thoracic aorta is non-dilated. LYMPH NODES: Unremarkable. No enlarged lymph nodes. CT/Low Dose CT Lung Screening IMPRESSION: There are no acute abnormalities. Lung-RADS score: 1 - Recommend continued annual screening with a low-dose CT (LDCT) in 12 months. Electronically Signed: Bart Gore MD at 23:29 EDT ,
== END | disposition home or self-care (01) ==
PROVIDERS: PCP Student in an Organized Health Care Education/Training Program; Referring Provider Internal Medicine Cardiovascular Disease; Visit Provider Internal Medicine Cardiovascular Disease
DX: I25.10 Atherosclerotic heart disease of native coronary artery without angina pectoris (principal); I48.91 Unspecified atrial fibrillation; I34.0 Nonrheumatic mitral (valve) insufficiency; I35.1 Nonrheumatic aortic (valve) insufficiency; I10 Essential (primary) hypertension; F17.210 Nicotine dependence, cigarettes, uncomplicated
CPT/HCPCS: 71271; 93306

== ENCOUNTER → 2023-04-28 | Outpatient (CLI) | payer MEDICAID, SELFPAY ==
[2023-04-28 12:01] LABS: AST(SGOT) 15 U/L (15-37); Alanine Aminotransfer ALT/SGPT 16 U/L (13-56); CPK Total, Creatine Kinase 94 U/L (26-192); Cholesterol 260 mg/dL (200); High Density Lipoprotein 52 mg/dL; Triglycerides 212 mg/dL; Very Low Density Lipoprotein 42 mg/dL (5-40)
== END | disposition home or self-care (01) ==
LOC: LAB 09:25
PROVIDERS: Referring Provider Internal Medicine Cardiovascular Disease; Visit Provider Internal Medicine Cardiovascular Disease
DX: I25.10 Atherosclerotic heart disease of native coronary artery without angina pectoris (principal); E78.00 Pure hypercholesterolemia, unspecified; I10 Essential (primary) hypertension; Z95.5 Presence of coronary angioplasty implant and graft
CPT/HCPCS: 36415; 80061; 82550; 84450; 84460

== ENCOUNTER → 2024-02-07 | Outpatient (CLI) | payer MEDICAID, SELFPAY | END | disposition home or self-care (01) | LOC: BIMLAB 09:43 | PROVIDERS: PCP Internal Medicine; Visit Provider Internal Medicine | DX: I10 Essential (primary) hypertension (principal) | CPT/HCPCS: 36415; 80053 ==

== ENCOUNTER → 2024-04-17 | Outpatient (CLI) | payer MEDICAID, SELFPAY ==
[2024-04-17 12:50] LABS: Absolute Lymphocyte Count 1.79 X10^3/uL (0.83-4.51); Absolute Neutrophil Count 3.5 X10^3/uL (2.0-7.7); Basophil# 0.05 X10^3/uL; Basophil% 0.9 % (0-1); Eosinophil# 0.04 X10^3/uL; Eosinophils% 0.7 % (0-5); Hematocrit 42.3 % (37-47); Hemoglobin 14.3 g/dL (12.0-15.0); Lymphocyte # 1.79 X10^3/ul (0.83-4.51); Lymphocyte % 30.8 % (19-41); Mean Corp Hgb Conc 33.8 g/dL (32-36); Mean Corpuscular Hgb 32.6 pg (27.0-32.0); Mean Corpuscular Volume 96.4 fL (81-99); Monocyte# 0.45 X10^3/uL; Monocyte% 7.7 % (0-10); NRBC Flagged by Analyzer 0 % (0-5); Neutrophil # 3.48 X10^3/uL (2.7-7.7); Neutrophil % 59.7 % (47-70); Platelet Count 212 K/mm3 (150-450); RBC Distribution Width CV 13.7 % (11.6-14.6); RBC Distribution Width SD 48.5 fl (35.1-43.9); Red Blood Count 4.39 M/mm3 (4.2-5.4); White Blood Count 5.8 K/mm3 (4.4-11.0)
[2024-04-17 13:06] LABS: International Normalized Ratio 0.9; Prothrombin Time (Protime)PT. 12.4 SECONDS (11.7-14.9)
[2024-04-17 13:24] LABS: ALB/GLOB Ratio 1.1 RATIO (0.9-2.4); AST(SGOT) 18 U/L (15-37); Alanine Aminotransfer ALT/SGPT 16 U/L (13-56); Alkaline Phosphatase 46 U/L (45-117); Anion Gap 6 (5-15); BUN 5 mg/dL (7-18); BUN/Creat Ratio 7.1 RATIO (10-20); Calcium,Total 9.4 mg/dL (8.5-10.1); Chloride 107 mmol/L (98-107); Creatinine, Serum 0.71 mg/dL (0.55-1.02); EST Glomerular Filtration Rate 91 mL/min (>60); Est Glom Filt Rate - Afr Amer 110 mL/min (>60); Globulin 3.7 g/dL (2.2-4.2); Glucose 93 mg/dL (74-106); Potassium 3.8 mmol/L (3.5-5.1); Protein, Total 7.7 g/dL (6.4-8.2); Sodium Level 139 mmol/L (136-145)
[2024-04-17 14:54] LABS: Hepatitis B Surface Antibody Non-Reactive
[2024-04-19 14:08] LABS: AFP, Tumor Marker 3.5 ng/mL (0.0-9.2); ANTINUCLEAR ANTIBODIES DIRECT Negative (Negative); Anti-Mitochondrial AB 28.2 Units (0.0-20.0); Anti-Smooth Muscle ABS 3 Units (0-19); Hepatitis A AB, Total Positive (Negative)
== END | disposition home or self-care (01) ==
PROVIDERS: PCP Internal Medicine; Referring Provider Nurse Practitioner Acute Care; Visit Provider Nurse Practitioner Acute Care
DX: K70.31 Alcoholic cirrhosis of liver with ascites (principal); I85.00 Esophageal varices without bleeding
CPT/HCPCS: 80053; 82105; 83516; 85025; 85610; 86038; 86706; 86708